=== PATIENT | female | born 1960 | race Caucasian/White ===

== ENCOUNTER → 2016-10-27 | Outpatient (CLI) | payer OTHER, MEDICARE ==
[2016-10-27 09:40] VITALS: BP 175/92; PULSE 52; RESP 16; TEMP 97.6; BMI 32.6
--- NOTE | 2016-11-03 09:58 | P.GSHP ---
History of Present Illness H&P Date: 10/27/16 Chief Complaint: Post RYGB 03/22 55-year-old female presents for post op eval S/P lap RYGB on 03/25/15 Her goal weight is 150 pounds. Status post lap cholecystectomy Her comorbid conditions include GERD-resolved, obstructive sleep apnea on CPAP, diabetes mellitus-resolved, arthritis,hypertension- resolved, Parkinson's disease, hypothyroidism, depression and chronic venous dermatitis bilateral lower extremities - resolved after laser therapy. She is taking daily multivitamins Recent hispital admission with altered mental status and elevated ammonia levels. She was discharged and repeat levels were normal? Etiology Preoperative visit #1 03/2014, weight 305.4 pounds, BMI 49.2 Preoperative visit #2 02/05/2015, weight 291.4 pounds, BMI 47 Preoperative visit #3 03/12/2015, weight 290.4 pounds, BMI 46.9 Laparoscopic Norma-en-Y gastric bypass on 03/15/2015 Postoperative visit #1 04/02/15, weight 272.8 pounds, BMI 44.6 Postoperative visit#2 04/23/15, weight 255.6 pounds , BMI 41.2 Postoperative visit #3 07/02/15, weight 102.7 KG, BMI 36.5 Postoperative visit #4 09/09/15, weight 93.80KG, BMI 33.4 Postoperative visit #5 10/22/15, weight 91.8 KG ,BMI 32.7 Postoperative visit #6 12/10/2015, weight 99.13 KG, BMI 31.7 Postoperative visit #7 04/07/2016, weight 85.9 KG, BMI 30.5 Postoperative visit #8 10/27/2016, weight 91KG, BMI 32.6 - Review of Systems Comment: Constitutional: Denies fever, malaise, anorexia, loss of appetite. HEENT: No difficulty in vision or hearing. Intermittent dysphagia Respiratory: Denies cough, shortness of breath, difficulty with breathing. Known sleep apnea and uses CPAP Cardiovascular: Denies any palpitation, shortness of breath, chest pain or irregular heart rate Genitourinary: No burning micturition or hematuria or incontinence Gastrointestinal: Mild constipation. No postprandial right upper quadrant pain . No nausea or vomiting. Musculoskeletal: Long-standing history of tremors. Known Parkinson's disease. Bilateral knee pain. Neurologic: No history of seizures, headache. No weakness or sensory deficits Psychiatric: Known history of depression. No suicidal ideation. Integumentary: Venous stasis ulcers in bilateral lower extremities status post laser ablation Past Medical History Past Medical History: Diabetes Mellitus, GERD/Reflux, Hearing Disorder / Deafness, Hypertension, Neurologic Disorder, Osteoarthritis (OA), Respiratory Disorder, Sleep Apnea/CPAP/BIPAP, Thyroid Disorder, Vascular Disorder Additional Past Medical History / Comment(s): 03/25/15 Pt admitted to floor s/p laparoscopic norma en y gastric bypass. Other HX: Arthritis, Back Pain; PARKINSON'S W/ ESSENTIAL Tremors; Venous INSUF, W/ HX Stasis Ulcers, RECENT RLL ULCERHEALED; HX CELLULITIS BLL. HX FX of LT Wrist, and Hip. USES CPAP; HAS "RESTRICTIVE LUNG DISEASE." History of Any Multi-Drug Resistant Organisms: None Reported Past Surgical History: Cholecystectomy Additional Past Surgical History / Comment(s): 03/25/15 Laparoscopic norma en y gastric bypass. Other SX: C. CATH 2011, NL. RT KNEE SCOPE. Colonoscopy and EGD Past Anesthesia/Blood Transfusion Reactions: No Reported Reaction Past Psychological History: Depression Additional Psychological History / Comment(s): Pt states she lives with her spouse. She states she is normally independent. She uses a cane prn. She drives. She has no home care. Smoking Status: Never smoker Past Alcohol Use History: None Reported Past Drug Use History: None Reported - Past Family History Mother Family Medical History: No Reported History Medications and Allergies Home Medications Medication Instructions Recorded Confirmed Type Levothyroxine Sodium [Synthroid] 50 mcg PO DAILY 12/24/13 04/07/16 History Cholecalciferol [Vitamin D3] 2,000 unit PO BID 03/23/14 04/07/16 History Primidone [Mysoline] 200 mg PO BID 03/23/14 04/07/16 History Multivitamins, Thera [Multivitamin 1 tab PO DAILY 03/17/15 04/07/16 History (formulary)] Calcium Citrate 500 mg PO DAILY 09/10/15 04/07/16 History Ergocalciferol [Vitamin D2] 50,000 unit PO Q7D 09/10/15 04/07/16 History Vitamin A 8,000 unit PO DAILY 09/10/15 04/07/16 History rOPINIRole HCL [Requip] 0.5 mg PO TID 09/10/15 04/07/16 History Allergies Allergy/AdvReac Type Severity Reaction Status Date / Time metformin Allergy Rash/Hives Verified 04/07/16 09:40 oxybutynin Allergy Wheezing Verified 04/07/16 09:40 Surgical - Exam Vital Signs Temp Pulse Resp BP 97.6 F 52 L 16 175/92 10/27/16 09:37 10/27/16 09:37 10/27/16 09:37 10/27/16 09:37 Gen.: She is alert and oriented to time place and person. She is not in acute distress and cooperative with exam HEENT: No pallor, no icterus, no thyroid enlargement Chest: Bilateral equal breath sounds present. No wheezes or murmurs Cardiovascular: S1, S2 present. No murmurs Abdomen: Soft, nontender, nondistended. Surgical incisions are clean, dry and intact. No surgical site infection Neurologic: Cranial nerves II-12 intact .Gait is normal . Strength upper and lower extremity 5/5. Tremors present. Psychiatry: No anxiety or psychosis. Denies suicidal ideation. Integumentary: Bilateral lower extremities chronic venous dermatitis. No active ulcer . Large overhanging lower abdominal pannus Musculoskeletal: Persistent tremor in bilateral upper extremities . Assessment and Plan (1) Hypothyroidism Status: Acute (2) Parkinson disease Status: Acute (3) Tremor Status: Chronic Plan: 1. Status post laparoscopic Norma-en-Y gastric bypass. Patient doing well. Lost more than 100 pounds. 2. Continue taking daily multivitamin 3. Follow-up with Dr. Bravo, primary care physician. Repeat annual lab work including mineral and vitamin levels. 4. Increase physical activity as tolerated 5. Follow up with GI regarding elevated LFTs and ammonia levels 6. Follow-up in 03/2017 at the bariatric center 7. Attending bariatric support group meeting
== END | disposition home or self-care (01) ==
LOC: BARWHC3 09:12
PROVIDERS: ATTEND Surgery
DX: Z48.815 Encounter for surgical aftercare following surgery on the digestive system (principal); E03.9 Hypothyroidism, unspecified; G20 Parkinson's disease; G25.2 Other specified forms of tremor; Z68.32 Body mass index [BMI] 32.0-32.9, adult; Z98.84 Bariatric surgery status; Z88.8 Allergy status to other drugs, medicaments and biological substances; Z79.899 Other long term (current) drug therapy
CPT/HCPCS: 99211

== ENCOUNTER → 2016-11-29 | Outpatient (CLI) | payer OTHER, MEDICARE ==
--- NOTE | 2016-11-29 14:33 | MM ---
Reason for exam: screening (asymptomatic). Last mammogram was performed 1 year ago. History: Patient is postmenopausal. Physical Findings: A clinical breast exam by your physician is recommended on an annual basis and results should be correlated with mammographic findings. MG Screening Mammo w CAD Bilateral CC and MLO view(s) were taken. Prior study comparison: December 09, 2015, bilateral MG screening mammo w CAD. November 21, 2014, bilateral MG screening mammo w CAD. June 21, 2014, bilateral MG screening mammo w CAD. There are scattered fibroglandular densities. There is no discrete abnormality. ASSESSMENT: Negative, BI-RAD 1 RECOMMENDATION: Routine screening mammogram of both breasts in 1 year.
== END | disposition home or self-care (01) ==
LOC: RADMAMWWP 11:11
PROVIDERS: ATTEND Family Medicine
DX: Z12.31 Encounter for screening mammogram for malignant neoplasm of breast (principal)

== ENCOUNTER → 2017-01-17 | Outpatient (CLI) | payer OTHER, MEDICARE ==
[2017-01-17 12:10] LABS: CH 31.3; CHCM 33.3; HCT 39.7 % (34.0-46.0); HDW 2.46; HGB 13.2 gm/dL (11.4-16.0); MCH 31.4 pg (25.0-35.0); MCHC 33.2 g/dL (31.0-37.0); MCV 94.5 fL (80.0-100.0); Mean Platelet Volume 6.7; RDW 12.9 % (11.5-15.5); WBC 6.2 k/uL (3.8-10.6)
[2017-01-17 12:30] LABS: ALT 21 U/L (9-52); AST 22 U/L (14-36); Alkaline Phosphatase 87 U/L (38-126); Anion Gap 6 mmol/L; Blood Urea Nitrogen 9 mg/dL (7-17); Calcium 9.3 mg/dL (8.4-10.2); Carbon Dioxide 28 mmol/L (22-30); Chloride 106 mmol/L (98-107); Cholesterol 158 mg/dL (<200); Glucose 78 mg/dL (74-99); HDL Cholesterol 54 mg/dL (40-60); Iron 117 ug/dL (37-170); Magnesium 1.8 mg/dL (1.6-2.3); Non-African American GFR(MDRD) >60 (>60 ml/min/1.73 sqM); Phosphorous 3.7 mg/dL (2.5-4.5); Potassium 4.4 mmol/L (3.5-5.1); Sodium 140 mmol/L (137-145); Total Bilirubin 0.4 mg/dL (0.2-1.3); Total Protein 6.3 g/dL (6.3-8.2); Triglycerides 101 mg/dL (<150)
[2017-01-17 12:40] LABS: % Iron Saturation 39.3 % (20-50); Prealbumin 18 mg/dL (18-36); Total Iron Binding Capacity 298 ug/dL (265-497)
[2017-01-17 13:31] LABS: Hemoglobin A1C 5.4 % (4.2-6.1)
[2017-01-17 13:35] LABS: Vitamin B12 270 pg/mL (239-931)
[2017-01-21 16:12] LABS: Selenium 133 mcg/L (63-160)
== END | disposition home or self-care (01) ==
LOC: LABWHC1 11:36
PROVIDERS: ATTEND Surgery
DX: E66.01 Morbid (severe) obesity due to excess calories (principal); E89.1 Postprocedural hypoinsulinemia; E03.9 Hypothyroidism, unspecified; R63.3 Feeding difficulties
CPT/HCPCS: 36415; 80053; 80061; 82306; 82525; 82607; 82728; 82746; 83036; 83540; 83550; 83735; 83970; 84100; 84134; 84255; 84425; 84443; 84590; 84630; 85027

== ENCOUNTER 2017-03-18 18:51 | Inpatient (IN) | payer OTHER, MEDICARE ==
[2017-03-18 21:44] VITALS: BMI 32.6
[2017-03-18 22:26] LABS: Glucose,Whole Blood 89 mg/dL (75-99)
[2017-03-18] MEDS ORDERED: MORPHINE SULFATE 10 MG/ML SYRINGE IVP PRN (23:48)
[2017-03-18] MEDS ORDERED: ACETAMINOPHEN TAB 325 MG TAB PO PRN (23:51)
[2017-03-18] MEDS ORDERED: ONDANSETRON 4 MG/2 ML VIAL IVP PRN (23:52)
[2017-03-19] MEDS: SODIUM CHLORIDE 0.9% 1,000 ML IV SCH ×3 (00:30→16:05)
[2017-03-19] MEDS: KETOROLAC 30 MG/ML 1 ML VIAL IVP SCH ×3 (01:02→13:12)
[2017-03-19] MEDS ORDERED: LEVOTHYROXINE 50 MCG TAB PO SCH (06:30)
[2017-03-19 07:16] LABS: Glucose,Whole Blood 99 mg/dL (75-99)
[2017-03-19 07:24] LABS: Basophils % (A) 1 %; CH 30.6; CHCM 33.1; Eosinophils # (A) 0.1 k/uL (0-0.7); Eosinophils % (A) 2 %; HCT 36.1 % (34.0-46.0); HDW 2.45; HGB 11.9 gm/dL (11.4-16.0); Luc # (Auto) 0.14; Luc % (Auto) 2; Lymphocytes # (A) 2.4 k/uL (1.0-4.8); Lymphocytes % (A) 41 %; MCH 30.6 pg (25.0-35.0); MCHC 32.9 g/dL (31.0-37.0); MCV 93.1 fL (80.0-100.0); Mean Platelet Volume 6.8; Monocytes # (A) 0.3 k/uL (0-1.0); Monocytes % (A) 5 %; Neutrophils # (A) 2.9 k/uL (1.3-7.7); Neutrophils % (A) 49 %; RBC 3.88 m/uL (3.80-5.40); RDW 12.7 % (11.5-15.5); WBC 5.9 k/uL (3.8-10.6)
[2017-03-19 07:41] LABS: Anion Gap 4 mmol/L; Blood Urea Nitrogen 10 mg/dL (7-17); Calcium 8.4 mg/dL (8.4-10.2); Carbon Dioxide 25 mmol/L (22-30); Chloride 110 mmol/L (98-107); Glucose 88 mg/dL (74-99); Non-African American GFR(MDRD) >60 (>60 ml/min/1.73 sqM); Potassium 4.4 mmol/L (3.5-5.1); Sodium 139 mmol/L (137-145)
[2017-03-19 07:59] VITALS: RESP 16
[2017-03-19] MEDS: CARBIDOPA-LEVODOPA 25-100 MG 1 EACH TAB PO SCH ×2 (08:03→16:06)
[2017-03-19] MEDS ORDERED: MORPHINE SULFATE 2 MG/ML SYRINGE IVP PRN (08:31)
[2017-03-19] MEDS ORDERED: HEPARIN SODIUM,PORCINE 5,000 UNIT/ML 1 ML VIAL SQ SCH (09:00)
[2017-03-19] MEDS ORDERED: PRIMIDONE 50 MG TAB PO SCH (09:00)
[2017-03-19] MEDS ORDERED: PANTOPRAZOLE 40 MG/10 ML VIAL IVP SCH (09:00)
--- NOTE | 2017-03-19 11:11 | P.HPIM ---
History of Present Illness Patient is a very pleasant 56-year-old female came in with complaints of left the inguinal pain squeezing and sharp in nature radiating to the groin area about 7-8 x 10 in severity on onset and now has gone down to 5 x 10 in severity with pain medications. Patient is found to have a 6 minute Metastron. Patient denied dysuria [facility] showed predominantly hematuria are not consistent with infection. Patient denied any fever chills. Patient was bradycardic which is a sinus bradycardia and is symptomatic with that sinus bradycardia although patient has on and off dizziness when she woke up. Patient's TSH is within normal limits no further intervention for bradycardia at this time. Urology was consulted patient was on IV fluids and antibiotics antibiotics will be discontinued at this time. Review of Systems REVIEW OF SYSTEMS: CONSTITUTIONAL: No fever, no malaise, no fatigue. HEENT: No recent visual problems or hearing problems. Denied any sore throat. CARDIOVASCULAR: No chest pain, orthopnea, PND, no palpitations, no syncope. PULMONARY: No shortness of breath, no cough, no hemoptysis. GASTROINTESTINAL: No diarrhea, no nausea, no vomiting, no abdominal pain. Normoactive bowel sounds. NEUROLOGICAL: No headaches, no weakness, no numbness. HEMATOLOGICAL: Denies any bleeding or petechiae. GENITOURINARY: As mentioned in HPI MUSCULOSKELETAL/RHEUMATOLOGICAL: Denies any joint pain, swelling, or any muscle pain. ENDOCRINE: Denies any polyuria or polydipsia. The rest of the 14-point review of systems is negative. Past Medical History Past Medical History: Diabetes Mellitus, GERD/Reflux, Hypertension, Neurologic Disorder, Osteoarthritis (OA), Respiratory Disorder, Sleep Apnea/CPAP/BIPAP, Thyroid Disorder, Vascular Disorder Additional Past Medical History / Comment(s): 03/25/15 Pt admitted to floor s/p laparoscopic naldo en y gastric bypass. Other HX: Arthritis, Back Pain; PARKINSON'S W/ ESSENTIAL Tremors; Venous INSUF, W/ HX Stasis Ulcers, RECENT RLL ULCERHEALED; HX CELLULITIS BLL. HX FX of LT Wrist, and Hip. USES CPAP; HAS "RESTRICTIVE LUNG DISEASE." History of Any Multi-Drug Resistant Organisms: None Reported Past Surgical History: Cholecystectomy Additional Past Surgical History / Comment(s): 03/25/15 Laparoscopic naldo en y gastric bypass. Other SX: C. CATH 2011, NL. RT KNEE SCOPE. Colonoscopy and EGD Past Anesthesia/Blood Transfusion Reactions: No Reported Reaction Past Psychological History: Depression Additional Psychological History / Comment(s): Pt states she lives with her spouse. She states she is normally independent. She uses a cane prn. She drives. She has no home care. Smoking Status: Never smoker Past Alcohol Use History: None Reported Past Drug Use History: None Reported - Past Family History Mother Family Medical History: No Reported History Medications and Allergies Home Medications Medication Instructions Recorded Confirmed Type Levothyroxine Sodium [Synthroid] 50 mcg PO DAILY 12/24/13 03/18/17 History Primidone [Mysoline] 100 mg PO BID 03/23/14 03/18/17 History Ergocalciferol [Vitamin D2] 50,000 unit PO MO 09/10/15 03/18/17 History Carbidopa-Levodopa 25-100 mg 1 tab PO TID 03/18/17 03/18/17 History [Sinemet 25-100] rOPINIRole HCL [Requip] 1 mg PO TID 03/18/17 03/18/17 History Allergies Allergy/AdvReac Type Severity Reaction Status Date / Time metformin Allergy Rash/Hives Verified 03/18/17 22:07 oxybutynin Allergy Wheezing Verified 03/18/17 22:07 Physical Exam Vitals: Vital Signs Temp Pulse Resp BP Pulse Ox 03/19/17 07:00 97.6 F 46 L 16 116/54 96 03/19/17 00:00 18 03/18/17 22:59 97.3 F L 39 L 18 146/77 100 Intake and Output 03/18/17 03/19/17 03/19/17 22:59 06:59 14:59 Output Total 225 Balance -225 Output: Urine 225 Other: # Voids 1 2 Weight 91 kg PHYSICAL EXAMINATION: GENERAL: The patient is alert and oriented x3, not in any acute distress. Well developed, well nourished. HEENT: Pupils are round and equally reacting to light. EOMI. No scleral icterus. No conjunctival pallor. Normocephalic, atraumatic. No pharyngeal erythema. No thyromegaly. CARDIOVASCULAR: S1 and S2 present. No murmurs, rubs, or gallops. PULMONARY: Chest is clear to auscultation, no wheezing or crackles. ABDOMEN: Soft, nontender, nondistended, normoactive bowel sounds. No palpable organomegaly. MUSCULOSKELETAL: No joint swelling or deformity. EXTREMITIES: No cyanosis, clubbing, or pedal edema. NEUROLOGICAL: Gross neurological examination did not reveal any focal deficits. SKIN: No rashes. Results CBC & Chem 7: 03/19/17 07:04 03/19/17 07:04 Labs: Abnormal Lab Results - Last 24 Hours (Table) 03/19/17 Range/Units 07:04 Chloride 110 H (98-107) mmol/L Thrombosis Risk Factor Assmnt - Choose All That Apply Each Factor Represents 1 point: Age 41-60 years, Obesity (BMI >25) Thrombosis Risk Factor Assessment Total Risk Factor Score: 2 Thrombosis Risk Factor Assessment Level: Low Risk Assessment and Plan Plan: #1 left lower abdominal pain: Secondary to nephrolithiasis without any UTI. Patient will be continued on IV fluids and urology was consulted. Patient had a 6 mm stone. #2 hypogonadism continue with levothyroxine History of Parkinson's: Uncontrolled symptoms and patient will be resumed on her home medications. #4 hypothyroidism TSH within normal limits will continue with levothyroxine. #5 sinus bradycardia a symptomatically at this time no further intervention at this time.
--- NOTE | 2017-03-19 12:28 | P.GSCN ---
History of Present Illness Consult date: 03/19/17 Reason for Consult: Kidney stone History of present illness: The patient is a 56-year-old female transferred from [facility] for evaluation and treatment of a left ureteral calculus. Her problem began yesterday morning when she developed left lower quadrant pain at 0615. The pain worsened in severity and she presented to the [facility] emergency room around 8 AM where she was evaluated. She was noted to have microscopic hematuria initially and then later in the morning experienced gross hematuria. KUB was nondiagnostic. A renal ultrasound was obtained but I do not have the report for review. A computed tomography scan of the abdomen and pelvis was obtained later in the morning and this identified a 4 x 6 mm distal left ureteral calculus with mild hydronephrosis. The patient says that her pain was rated as a 3 out of 10 later in the morning and essentially was gone by the afternoon. Sometime in the afternoon it was elected to transfer the patient to this hospital for which she describes as a procedure to remove the stone. I was not contacted by the [facility] emergency room at that time. Patient eventually transferred in the evening and says she has been comfortable throughout the night and this morning. She does have periodic urgency to void but says that the discomfort is mild. She is no longer experiencing gross hematuria. She denies any dysuria and has had no fever or chills. She has had occasional urinary tract infections in the past but none have recurred recently. She has no personal or family history of urolithiasis. Review of Systems - Constitutional Denies anorexia, Denies chills, Denies fever - Cardiovascular Denies chest pain, Denies palpitations, Denies shortness of breath - Respiratory Denies cough, Denies wheezing - Gastrointestinal Denies abdominal pain, Denies constipation, Denies nausea, Denies vomiting - Genitourinary Genitourinary: Reports as per HPI Past Medical History Past Medical History: Diabetes Mellitus (resolved following bariatric surgery), GERD/Reflux, Hypertension (Resolved following bariatric surgery), Neurologic Disorder, Osteoarthritis (OA), Respiratory Disorder, Sleep Apnea/CPAP/BIPAP, Thyroid Disorder, Vascular Disorder Additional Past Medical History / Comment(s): 03/25/15 Pt admitted to floor s/p laparoscopic naldo en y gastric bypass. Other HX: Arthritis, Back Pain; PARKINSON'S W/ ESSENTIAL Tremors; Venous INSUF, W/ HX Stasis Ulcers, RECENT RLL ULCERHEALED; HX CELLULITIS BLL. HX FX of LT Wrist, and Hip. USES CPAP; HAS "RESTRICTIVE LUNG DISEASE." History of Any Multi-Drug Resistant Organisms: None Reported Past Surgical History: Cholecystectomy Additional Past Surgical History / Comment(s): 03/25/15 Laparoscopic naldo en y gastric bypass. Other SX: C. CATH 2011, NL. RT KNEE SCOPE. Colonoscopy and EGD Past Anesthesia/Blood Transfusion Reactions: No Reported Reaction Past Psychological History: Depression Additional Psychological History / Comment(s): Pt states she lives with her spouse. She states she is normally independent. She uses a cane prn. She drives. She has no home care. Smoking Status: Never smoker Past Alcohol Use History: None Reported Past Drug Use History: None Reported - Past Family History Mother Family Medical History: No Reported History Medications and Allergies Home Medications Medication Instructions Recorded Confirmed Type Levothyroxine Sodium [Synthroid] 50 mcg PO DAILY 12/24/13 03/18/17 History Primidone [Mysoline] 100 mg PO BID 03/23/14 03/18/17 History Ergocalciferol [Vitamin D2] 50,000 unit PO MO 09/10/15 03/18/17 History Carbidopa-Levodopa 25-100 mg 1 tab PO TID 03/18/17 03/18/17 History [Sinemet 25-100] rOPINIRole HCL [Requip] 1 mg PO TID 03/18/17 03/18/17 History Allergies Allergy/AdvReac Type Severity Reaction Status Date / Time metformin Allergy Rash/Hives Verified 03/18/17 22:07 oxybutynin Allergy Wheezing Verified 03/18/17 22:07 Surgical - Exam Vital Signs Temp Pulse Resp BP Pulse Ox 97.3 F L 39 L 18 146/77 100 03/18/17 22:59 03/18/17 22:59 03/18/17 22:59 03/18/17 22:59 03/18/17 22:59 - General well developed, no distress, no pain - Respiratory normal respiratory effort - Abdomen Abdomen: soft, non tender, no organomegaly - Psychiatric oriented to time, speech is normal, memory intact Results - Labs 03/19/17 07:04 03/19/17 07:04 Abnormal Lab Results - Last 24 Hours (Table) 03/19/17 Range/Units 07:04 Chloride 110 H (98-107) mmol/L Diabetes panel 03/19/17 Range/Units 07:04 Sodium 139 (137-145) mmol/L Potassium 4.4 (3.5-5.1) mmol/L Chloride 110 H (98-107) mmol/L Carbon Dioxide 25 (22-30) mmol/L BUN 10 (7-17) mg/dL Creatinine 0.55 (0.52-1.04) mg/dL Glucose 88 (74-99) mg/dL Calcium 8.4 (8.4-10.2) mg/dL Thyroid panel 03/19/17 Range/Units 07:04 TSH 1.200 (0.465-4.680) mIU/L Calcium panel 03/19/17 Range/Units 07:04 Calcium 8.4 (8.4-10.2) mg/dL Pituitary panel 03/19/17 Range/Units 07:04 Sodium 139 (137-145) mmol/L Potassium 4.4 (3.5-5.1) mmol/L Chloride 110 H (98-107) mmol/L Carbon Dioxide 25 (22-30) mmol/L BUN 10 (7-17) mg/dL Creatinine 0.55 (0.52-1.04) mg/dL Glucose 88 (74-99) mg/dL Calcium 8.4 (8.4-10.2) mg/dL TSH 1.200 (0.465-4.680) mIU/L Adrenal panel 03/19/17 Range/Units 07:04 Sodium 139 (137-145) mmol/L Potassium 4.4 (3.5-5.1) mmol/L Chloride 110 H (98-107) mmol/L Carbon Dioxide 25 (22-30) mmol/L BUN 10 (7-17) mg/dL Creatinine 0.55 (0.52-1.04) mg/dL Glucose 88 (74-99) mg/dL Calcium 8.4 (8.4-10.2) mg/dL Assessment and Plan (1) Left ureteral calculus Narrative/Plan: I personally reviewed the patient's computed tomography scan. She has a 4 x 6 mm calculus in the distal left ureter which appears to be within 2 or 3 cm of the ureteral vesicle junction. There was mild left hydronephrosis but no other evidence of urolithiasis. The patient has been comfortable since yesterday morning and it is likely that her stone is migrating closer to the bladder as she experiences more urgency to void. She has no evidence of urinary tract infection and should not be treated with an antibiotic. I explained to the patient that there is no indication for an operative procedure at this time and that she has probably at least an 80% likelihood of being able to spontaneously pass her calculus. She will be started on tamsulosin and I encouraged her to continue to strain her urine until the stone has passed so it can be sent for analysis. I gave her our office phone number so she can contact me if she develops pain which is not controllable with oral analgesics. She does have some acetaminophen/hydrocodone liquid at home which was left over from her bariatric surgery which she could use as needed. Status: Acute
[2017-03-19 15:47] VITALS: BP 130/60; PULSE 48; TEMP 98.1
--- NOTE | 2017-03-19 16:58 | P.DS ---
Providers Date of admission: 03/18/17 21:11 Attending physician: Lana Mcdaniel Consults: 03/19/17 00:02 Consult Physician Routine Consulting Provider: Refugio Trammell Consult Reason/Comments: stone in left ureter Do you want consulting provider notified?: Yes Primary care physician: Stated None Hospital Course: Patient is feeling much better was evaluated by urology and patient is clear for discharge from their perspective and patient wanted to be discharged. Patient is being discharged today in stable medical condition to home for further details please refer to my HPI Plan - Discharge Summary New Discharge Prescriptions: New Tamsulosin [Flomax] 0.4 mg PO DAILY #14 cap No Action Levothyroxine Sodium [Synthroid] 50 mcg PO DAILY Primidone [Mysoline] 100 mg PO BID Ergocalciferol [Vitamin D2] 50,000 unit PO MO Carbidopa-Levodopa 25-100 mg [Sinemet 25-100] 1 tab PO TID rOPINIRole HCL [Requip] 1 mg PO TID Discharge Medication List Levothyroxine Sodium [Synthroid] 50 mcg PO DAILY 12/24/13 [History] Primidone [Mysoline] 100 mg PO BID 03/23/14 [History] Ergocalciferol [Vitamin D2] 50,000 unit PO MO 09/10/15 [History] Carbidopa-Levodopa 25-100 mg [Sinemet 25-100] 1 tab PO TID 03/18/17 [History] rOPINIRole HCL [Requip] 1 mg PO TID 03/18/17 [History] Tamsulosin [Flomax] 0.4 mg PO DAILY #14 cap 03/19/17 [Rx] Patient Instructions/Handouts: Tamsulosin (By mouth), Ureteral Stones (DC) Discharge Disposition: HOME SELF-CARE
== END 2017-03-19 17:30 | disposition home or self-care (01) | DRG 694 ==
LOC: 5MS5E 21:11
PROVIDERS: ADMIT Internal Medicine; ATTEND Internal Medicine
DX: N13.2 Hydronephrosis with renal and ureteral calculous obstruction (principal); G20 Parkinson's disease; I10 Essential (primary) hypertension; R31.0 Gross hematuria; R00.1 Bradycardia, unspecified; R39.15 Urgency of urination; G47.30 Sleep apnea, unspecified; K21.9 Gastro-esophageal reflux disease without esophagitis; R31.29 Other microscopic hematuria; R42 Dizziness and giddiness; I87.2 Venous insufficiency (chronic) (peripheral); J98.4 Other disorders of lung; M19.90 Unspecified osteoarthritis, unspecified site; E03.9 Hypothyroidism, unspecified; G25.0 Essential tremor; E66.9 Obesity, unspecified; E11.9 Type 2 diabetes mellitus without complications; Z98.84 Bariatric surgery status; Z87.440 Personal history of urinary (tract) infections; Z88.8 Allergy status to other drugs, medicaments and biological substances; Z86.19 Personal history of other infectious and parasitic diseases; Z87.81 Personal history of (healed) traumatic fracture; Z86.59 Personal history of other mental and behavioral disorders; Z90.49 Acquired absence of other specified parts of digestive tract
CPT/HCPCS: 80048; 84439; 84443; 85025; 93005

== ENCOUNTER → 2017-04-18 | Outpatient (CLI) | payer OTHER, MEDICARE ==
--- NOTE | 2017-04-18 09:38 | P.GSCN ---
History of Present Illness Consult date: 04/18/17 Past Medical History Past Medical History: Diabetes Mellitus (resolved following bariatric surgery), GERD/Reflux, Hypertension (Resolved following bariatric surgery), Neurologic Disorder, Osteoarthritis (OA), Respiratory Disorder, Sleep Apnea/CPAP/BIPAP, Thyroid Disorder, Vascular Disorder Additional Past Medical History / Comment(s): 03/25/15 Pt admitted to floor s/p laparoscopic naldo en y gastric bypass. Other HX: Arthritis, Back Pain; PARKINSON'S W/ ESSENTIAL Tremors; Venous INSUF, W/ HX Stasis Ulcers, RECENT RLL ULCERHEALED; HX CELLULITIS BLL. HX FX of LT Wrist, and Hip. USES CPAP; HAS "RESTRICTIVE LUNG DISEASE." History of Any Multi-Drug Resistant Organisms: None Reported Past Surgical History: Cholecystectomy Additional Past Surgical History / Comment(s): 03/25/15 Laparoscopic naldo en y gastric bypass. Other SX: C. CATH 2011, NL. RT KNEE SCOPE. Colonoscopy and EGD Past Anesthesia/Blood Transfusion Reactions: No Reported Reaction Past Psychological History: Depression Additional Psychological History / Comment(s): Pt states she lives with her spouse. She states she is normally independent. She uses a cane prn. She drives. She has no home care. Smoking Status: Never smoker Past Alcohol Use History: None Reported Past Drug Use History: None Reported - Past Family History Mother Family Medical History: No Reported History Medications and Allergies Home Medications Medication Instructions Recorded Confirmed Type Levothyroxine Sodium [Synthroid] 50 mcg PO DAILY 12/24/13 03/18/17 History Primidone [Mysoline] 100 mg PO BID 03/23/14 03/18/17 History Ergocalciferol [Vitamin D2] 50,000 unit PO MO 09/10/15 03/18/17 History Carbidopa-Levodopa 25-100 mg 1 tab PO TID 03/18/17 03/18/17 History [Sinemet 25-100] rOPINIRole HCL [Requip] 1 mg PO TID 03/18/17 03/18/17 History Tamsulosin [Flomax] 0.4 mg PO DAILY #14 cap 03/19/17 Rx Allergies Allergy/AdvReac Type Severity Reaction Status Date / Time metformin Allergy Rash/Hives Verified 03/18/17 22:07 oxybutynin Allergy Wheezing Verified 03/18/17 22:07
[2017-04-18 10:10] VITALS: BP 140/80; PULSE 50; RESP 16; TEMP 98.1; BMI 31.6
== END | disposition home or self-care (01) ==
LOC: BARWHC3 09:09
PROVIDERS: ATTEND Surgery
DX: E55.9 Vitamin D deficiency, unspecified (principal); K21.9 Gastro-esophageal reflux disease without esophagitis; M19.90 Unspecified osteoarthritis, unspecified site; Z79.899 Other long term (current) drug therapy; Z88.8 Allergy status to other drugs, medicaments and biological substances
CPT/HCPCS: 97803; 99211

== ENCOUNTER → 2017-04-25 | Outpatient (CLI) | payer OTHER, MEDICARE ==
--- NOTE | 2017-04-25 15:24 | XR ---
Right hip HISTORY: Pain 2 views of the right hip Bone mineralization, joint spaces and alignment are maintained. IMPRESSION: No fracture or dislocation is evident. No significant arthropathy.
== END | disposition home or self-care (01) ==
LOC: RADXRMAIN 12:19
PROVIDERS: ATTEND Family Medicine
DX: M25.551 Pain in right hip (principal)
CPT/HCPCS: 73502

== ENCOUNTER → 2018-01-10 | Outpatient (CLI) | payer OTHER, MEDICARE ==
--- NOTE | 2018-01-11 14:11 | MM ---
Reason for exam: screening (asymptomatic). Last mammogram was performed 1 year and 1 month ago. History: Patient is postmenopausal. Physical Findings: A clinical breast exam by your physician is recommended on an annual basis and results should be correlated with mammographic findings. MG 3D Screening Mammo W/Cad Bilateral CC and MLO view(s) were taken. Prior study comparison: November 29, 2016, bilateral MG screening mammo w CAD. December 09, 2015, bilateral MG screening mammo w CAD. There are scattered fibroglandular densities. No suspicious abnormality. No significant changes when compared with prior studies. ASSESSMENT: Negative, BI-RAD 1 RECOMMENDATION: Routine screening mammogram of both breasts in 1 year.
== END | disposition home or self-care (01) ==
LOC: RADMAMWWP 11:04
PROVIDERS: ATTEND Family Medicine
DX: Z12.31 Encounter for screening mammogram for malignant neoplasm of breast (principal)
CPT/HCPCS: 77063; 77067

== ENCOUNTER → 2018-03-15 | Outpatient (CLI) | payer OTHER, MEDICARE ==
[2018-03-15 15:16] VITALS: BP 148/72; PULSE 48; RESP 16; TEMP 97.4; BMI 33.1
--- NOTE | 2018-03-15 15:42 | P.HPBAR ---
Bariatric H&P - History & Physicial H&P Date: 03/15/18 History & Physicial: Visit/CC: ry follow-up 2014 Patient initial contact: Initial weight: 138.21 kg Initial weight in pounds: 304.70 Height: 5 ft 6 in Initial BMI: 49.1 Last weight: Current weight: 93.157 kg Current weight in pounds: 205.38 Current BMI: 33.1 [place] body weight (based on NIH guidelines): 58.967 kg Excess body weight loss: 56.8% The patient is a 57 year-old F who presents for Bariatric Assessment. HPI: She is eager to lose more weight. Has occasional nausea or vomiting. Food is getting stuck on occasion. Her highest weight 310 pounds. Protein intake is low at 35 grams. She is eating more carbs. She is not taking MVI and has lost her gym randy. Using zinc oxide for skin for over 5 years. She has a gastric bypass. She wants to get down to 150 pounds. ABDOMEN: No hernias. Skin 10 pounds of skin with hanging of 6 cm. No hernias felt. LABS: Reviewed PLAN: 1. Recommend MVI of bariatric advantage or alive 2. Get labs today 3. Recommend EGD 4. Need of thyroid medication adjustment 5. She is looking into skin removal surgery. 6. Nystatin powder advised. 7. Get pictures today. Past Medical History Past Medical History: Diabetes Mellitus, GERD/Reflux, Hypertension, Neurologic Disorder, Osteoarthritis (OA), Respiratory Disorder, Sleep Apnea/CPAP/BIPAP, Thyroid Disorder, Vascular Disorder Additional Past Medical History / Comment(s): 03/25/15 Pt admitted to floor s/p laparoscopic naldo en y gastric bypass. Other HX: Arthritis, Back Pain; PARKINSON'S W/ ESSENTIAL Tremors; Venous INSUF, W/ HX Stasis Ulcers, RECENT RLL ULCERHEALED; HX CELLULITIS BLL. HX FX of LT Wrist, and Hip. USES CPAP; HAS "RESTRICTIVE LUNG DISEASE." History of Any Multi-Drug Resistant Organisms: None Reported Past Surgical History: Cholecystectomy Additional Past Surgical History / Comment(s): 03/25/15 Laparoscopic naldo en y gastric bypass. Other SX: C. CATH 2011, NL. RT KNEE SCOPE. Colonoscopy and EGD Past Anesthesia/Blood Transfusion Reactions: No Reported Reaction Past Psychological History: Depression Additional Psychological History / Comment(s): Pt states she lives with her spouse. She states she is normally independent. She uses a cane prn. She drives. She has no home care. Smoking Status: Never smoker Past Alcohol Use History: None Reported Past Drug Use History: None Reported - Past Family History Mother Family Medical History: No Reported History Surgical - Exam Vital Signs Temp Pulse Resp BP 97.4 F L 48 L 16 148/72 03/15/18 15:11 03/15/18 15:11 03/15/18 15:11 03/15/18 15:11 Bariatric Checklist Checklist: Plan: Checklist: EGD: 1. Hiatal hernia: 2. H. Pylori: HgbA1c: Vitamin D: Smoking: Never smoker Primary care physician referral: capri Psychiatry clearance: Cardiology clearance: Sleep study: Diet journal: VTE risk score: VTE risk level: Rehab needs at discharge:
[2018-03-15 16:33] LABS: HCT 41.4 % (34.0-46.0); HGB 13.8 gm/dL (11.4-16.0); MCH 30.4 pg (25.0-35.0); MCHC 33.4 g/dL (31.0-37.0); Mean Platelet Volume 6.6; Platelet Count 338 k/uL (150-450); RBC 4.55 m/uL (3.80-5.40); WBC 7.2 k/uL (3.8-10.6)
[2018-03-15 16:40] LABS: Prothrombin Time 10.2 sec (9.0-12.0)
[2018-03-15 16:41] LABS: Partial Thromboplastin Time 23.7 sec (22.0-30.0)
[2018-03-15 16:56] LABS: ALT 16 U/L (9-52); AST 20 U/L (14-36); Alkaline Phosphatase 82 U/L (38-126); Anion Gap 3 mmol/L; Blood Urea Nitrogen 11 mg/dL (7-17); Calcium 9.2 mg/dL (8.4-10.2); Carbon Dioxide 29 mmol/L (22-30); Chloride 105 mmol/L (98-107); Cholesterol 183 mg/dL (<200); Glucose 92 mg/dL (74-99); HDL Cholesterol 60 mg/dL (40-60); LDL Cholesterol,Calculated 101 mg/dL (0-99); Magnesium 1.8 mg/dL (1.6-2.3); Phosphorus 4.6 mg/dL (2.5-4.5); Potassium 4.3 mmol/L (3.5-5.1); Sodium 137 mmol/L (137-145); Total Bilirubin 0.3 mg/dL (0.2-1.3); Total Protein 6.5 g/dL (6.3-8.2); Triglycerides 108 mg/dL (<150)
[2018-03-16 00:57] LABS: Iron Saturation 30.19 (12.00-45.00)
[2018-03-16 01:05] LABS: Vitamin D 25 Hydroxy 57.1 ng/mL (30.0-100.0)
[2018-03-16 01:06] LABS: Folate, Serum 9.7 ng/mL
[2018-03-16 01:09] LABS: Parathyroid Hormone Intact 108.9 pg/mL (14.0-72.0)
[2018-03-16 01:14] LABS: Hemoglobin A1C 5.6 % (4.0-6.0)
[2018-03-16 15:07] LABS: Zinc, Serum 75 ug/dL (60-130)
[2018-03-17 05:18] LABS: Vitamin B1 44 ug/L (38-122)
[2018-03-17 05:30] LABS: Vitamin A 40 ug/dL (38-106)
== END | disposition home or self-care (01) ==
LOC: BARWHC3 14:20
PROVIDERS: ATTEND Surgery Plastic and Reconstructive Surgery
DX: Z09 Encounter for follow-up examination after completed treatment for conditions other than malignant neoplasm (principal); K21.9 Gastro-esophageal reflux disease without esophagitis; E07.9 Disorder of thyroid, unspecified; G47.30 Sleep apnea, unspecified; J98.4 Other disorders of lung; F32.9 Major depressive disorder, single episode, unspecified; Z99.89 Dependence on other enabling machines and devices; Z90.49 Acquired absence of other specified parts of digestive tract; Z98.84 Bariatric surgery status
CPT/HCPCS: 36415; 80053; 80061; 82306; 82525; 82607; 82728; 82746; 83036; 83540; 83550; 83735; 83970; 84100; 84134; 84255; 84425; 84443; 84590; 84630; 85027; 85610; 85730; 97803; 99211

== ENCOUNTER 2018-04-19 06:31 | Day surgery (SDC) | payer OTHER, MEDICARE ==
[2018-04-18 09:48] VITALS: BMI 32.3
--- NOTE | 2018-04-18 23:31 | P.GSHP ---
History of Present Illness H&P Date: 04/19/18 CHIEF COMPLAINT: GERD HISTORY OF PRESENT ILLNESS: The patient is a 57-year-old female who presents reports gastroesophageal reflux disease. Upper endoscopy was offered for further evaluation and management. PAST MEDICAL HISTORY: Please see list. PAST SURGICAL HISTORY: Please see list. MEDICATIONS: Please see list. ALLERGIES: Please see list. SOCIAL HISTORY: No illicit drug use FAMILY HISTORY: No reports of Crohn disease or ulcerative colitis. REVIEW OF ORGAN SYSTEMS: CONSTITUTIONAL: No reports of fevers or chills. GI: Denies any blood in stools or constipation. PHYSICAL EXAM: VITAL SIGNS: Stable GENERAL: Well-developed and pleasant in no acute distress. HEENT: No scleral icterus. Extraocular movements grossly intact. Moist buccal mucosa. NECK: Supple without lymphadenopathy. CHEST: Unlabored respirations. Equal bilateral excursions. CARDIOVASCULAR: Regular rate and rhythm. Distal 2+ pulses. ABDOMEN: Soft, nondistended. MUSCULOSKELETAL: No clubbing, cyanosis, or edema. ASSESSMENT: 1. Gastroesophageal reflux disease PLAN: 1. Recommend proceeding with an upper endoscopy Past Medical History Past Medical History: Diabetes Mellitus, Hypertension, Osteoarthritis (OA), Sleep Apnea/CPAP/BIPAP, Thyroid Disorder, Vascular Disorder Additional Past Medical History / Comment(s): PARKINSON'S W/ ESSENTIAL Tremors; no cpap used, hx kidney stones, diet control diabetic History of Any Multi-Drug Resistant Organisms: None Reported Past Surgical History: Bariatric Surgery, Cholecystectomy, Heart Catheterization , Orthopedic Surgery, Tonsillectomy Additional Past Surgical History / Comment(s): 03/25/15 Laparoscopic naldo en y gastric bypass. knee arthroscopy(not sure what knee), steph leg surgery varicose veins, Past Anesthesia/Blood Transfusion Reactions: Previous Problems w/ Anesthesia, Motion Sickness Additional Past Anesthesia/Blood Transfusion Reaction / Comment(s): "took extra time to come out" Past Psychological History: Depression Additional Psychological History / Comment(s): Pt states she lives with her spouse. She states she is normally independent. She uses a cane prn. She drives. She has no home care. Smoking Status: Never smoker Past Alcohol Use History: None Reported Past Drug Use History: None Reported - Past Family History Mother Family Medical History: No Reported History Medications and Allergies Home Medications Medication Instructions Recorded Confirmed Type Levothyroxine Sodium [Synthroid] 50 mcg PO DAILY 12/24/13 04/18/18 History Primidone [Mysoline] 100 mg PO BID 03/23/14 04/18/18 History Ergocalciferol [Vitamin D2] 50,000 unit PO MO 09/10/15 04/18/18 History Carbidopa-Levodopa 25-100 mg 1 tab PO QID 03/18/17 04/18/18 History [Sinemet 25-100] Alive 1 tab PO DAILY 04/18/18 04/18/18 History Naproxen 500 mg PO BID PRN 04/18/18 04/18/18 History Vitamin A Acetate [Vitamin A] 10,000 unit SL DAILY 04/18/18 04/18/18 History rOPINIRole HCL [Requip] 2 mg PO TID 04/18/18 04/18/18 History Allergies Allergy/AdvReac Type Severity Reaction Status Date / Time metformin Allergy Rash/Hives Verified 04/18/18 09:34 metronidazole Allergy Unknown Verified 04/18/18 09:35 oxybutynin Allergy Wheezing Verified 04/18/18 09:34
[~2018-04-19 06:31] MED LIST: LACTATED RINGERS 1,000 ML IV SCH
[2018-04-19] MEDS ORDERED: LACTATED RINGERS 1,000 ML IV ONE (06:51)
[2018-04-19 07:02] VITALS: RESP 16; TEMP 98.7
[2018-04-19] MEDS ORDERED: LIDOCAINE 1% INJ 10MG/ML (20 ML MDV) ONE (07:34)
[2018-04-19] MEDS ORDERED: PROPOFOL 10 MG/ML 20 ML VIAL IV ONE (07:34)
[2018-04-19 07:44] LABS: Glucose,Whole Blood 88 mg/dL (75-99)
--- NOTE | 2018-04-19 07:54 | P.PCN ---
Date of Procedure: 04/19/18 Description of Procedure: PREOPERATIVE DIAGNOSIS: Dysphagia. s/p Norma-en-y gastric bypass. POSTOPERATIVE DIAGNOSIS: Dysphagia. s/p Norma-en-y gastric bypass. Foreign body along gastric pouch Gastrojejunal stricture with chronic ulcer without perforation OPERATION: Esophagogastrojejunoscopy with balloon dilatation from 18 to 20 mm. Esophagogastrojejunoscopy with removal of foreign body SURGEON: Felisha Carrillo MD ANESTHESIA: MAC. INDICATIONS: The patient is a 57-year-old female who presents with a history of dysphagia, gastric bypass. Benefits and risks of the procedure were described. Informed consent was obtained. DESCRIPTION: The patient was brought into the endoscopy suite and laid in the left lateral decubitus position. After a timeout was confirmed, the procedure was initiated. An Olympus gastroscope was passed along the posterior oropharynx down to the distal esophagus where the squamocolumnar junction was unremarkable. The gastric pouch was entered. A gastrojejunal stricture of 18 mm was found as the adult gastroscope was 9.5 mm in size. A Boundary balloon dilator was placed through the scope. Final insufflation up to 20 mm was performed with a total of 2 minutes. The scope was advanced up to 60 cm from the incisors into the Norma limb. The mucosa of the gastrojejunal anastomosis was intact. No chronic gastrojejunal marginal ulcer was encountered. Attention celina were identified along the anastomosis. 2 were identified. One was removed. The other was deeper retained to the mucosa. [place] were removed using cold forceps. No full-thickness injury was encountered. The GI tract was desufflated. The patient tolerated the procedure well. FINDINGS: Squamocolumnar junction unremarkable at 40 cm. Stricture of approximately 18 mm encountered. No chronic gastrojejunal ulceration encountered. Successful balloon dilatation to 20 mm. Diaphragmatic hiatus at 40 cm. Gastric pouch 3 cm. Foreign body of retained staple along gastric anastomosis removed No LA grade A anastomosis RECOMMENDATIONS: Upper endoscopy as needed Plan - Discharge Summary New Discharge Prescriptions: No Action Levothyroxine Sodium [Synthroid] 50 mcg PO DAILY Primidone [Mysoline] 100 mg PO BID Ergocalciferol [Vitamin D2] 50,000 unit PO MO Carbidopa-Levodopa 25-100 mg [Sinemet 25-100] 1 tab PO QID Vitamin A Acetate [Vitamin A] 10,000 unit SL DAILY rOPINIRole HCL [Requip] 2 mg PO TID Alive 1 tab PO DAILY Naproxen 500 mg PO BID PRN PRN Reason: Pain Discharge Medication List Levothyroxine Sodium [Synthroid] 50 mcg PO DAILY 12/24/13 [History] Primidone [Mysoline] 100 mg PO BID 03/23/14 [History] Ergocalciferol [Vitamin D2] 50,000 unit PO MO 09/10/15 [History] Carbidopa-Levodopa 25-100 mg [Sinemet 25-100] 1 tab PO QID 03/18/17 [History] Alive 1 tab PO DAILY 04/18/18 [History] Naproxen 500 mg PO BID PRN 04/18/18 [History] Vitamin A Acetate [Vitamin A] 10,000 unit SL DAILY 04/18/18 [History] rOPINIRole HCL [Requip] 2 mg PO TID 04/18/18 [History]
[2018-04-19 08:09] VITALS: BP 120/71; PULSE 48
== END 2018-04-19 08:55 | disposition home or self-care (01) ==
LOC: ORWHC2ENDO 06:31
PROVIDERS: ATTEND Surgery Plastic and Reconstructive Surgery
DX: K31.89 Other diseases of stomach and duodenum (principal); K91.89 Other postprocedural complications and disorders of digestive system; T18.2XXA Foreign body in stomach, initial encounter; Z98.0 Intestinal bypass and anastomosis status; Z98.84 Bariatric surgery status; E11.9 Type 2 diabetes mellitus without complications; I10 Essential (primary) hypertension; M19.90 Unspecified osteoarthritis, unspecified site; G47.33 Obstructive sleep apnea (adult) (pediatric); E07.9 Disorder of thyroid, unspecified; G20 Parkinson's disease; F32.9 Major depressive disorder, single episode, unspecified; Z99.89 Dependence on other enabling machines and devices; Z90.49 Acquired absence of other specified parts of digestive tract; Z79.890 Hormone replacement therapy; Z79.899 Other long term (current) drug therapy; Z88.8 Allergy status to other drugs, medicaments and biological substances; Z87.442 Personal history of urinary calculi
CPT/HCPCS: 43247; 43249; J2001; J2704; C1726

== ENCOUNTER → 2018-05-17 | Outpatient (CLI) | payer OTHER, MEDICARE ==
--- NOTE | 2018-05-17 14:43 | P.PN ---
Subjective Progress Note Date: 05/17/18 HPI: NO belly pain since scope with staple removal ABDOMEN: Has mild panniculitis PLAN: 1. Nystatin powder for panniculitis. 2. No further reports of dysphagia. 3. Labs reviewed. 4. Recommend taking calcium supplement 5. Recommend more weight loss for over 100 pound weight loss.
[2018-05-17 16:08] VITALS: BP 133/98; PULSE 69; RESP 16; TEMP 98.8; BMI 40.0
== END | disposition home or self-care (01) ==
LOC: BARWHC3 13:30
PROVIDERS: ATTEND Surgery Plastic and Reconstructive Surgery
DX: M79.3 Panniculitis, unspecified (principal)
CPT/HCPCS: 99211

== ENCOUNTER 2018-07-10 17:16 | Emergency (ER) | payer OTHER, MEDICARE ==
[2018-07-10] MEDS ORDERED: EPINEPHrine 1 MG/ML 1 ML AMP IM STA ×4 (17:37→17:40)
[2018-07-10] MEDS ORDERED: FAMOTIDINE 20 MG/2 ML VIAL IV STA (17:48)
[2018-07-10] MEDS ORDERED: DEXAMETHASONE SOD PHOSPHATE 10 MG/ML 1 ML VIAL IV STA (17:48)
[2018-07-10] MEDS ORDERED: diphenhydrAMINE 50 MG/ML 1 ML VIAL IVP STA (17:49)
--- NOTE | 2018-07-10 17:54 | ED ---
General Adult HPI - General Chief complaint: Allergic Reaction Stated complaint: Reaction to contrast from CT Source: patient Mode of arrival: wheelchair Limitations: no limitations - History of Present Illness Initial comments: Dictation was produced using [employer] dictation software. please excuse any grammatical, word or spelling errors. Chief Complaint: 68-year-old female with throat symptoms status post administration of contrast. History of Present Illness: The 58 year old female who was sent in by the radiology department. She was getting a computed tomography scan with contrast when immediately after the scan she began having throat symptoms. States that her throat felt scratchy. Denies any history of contrast ALLERGY. Patient experienced severe flushing to the skin however that has since resolved. Denies any abdominal symptoms. The ROS documented in this emergency department record has been reviewed and confirmed by me. Those systems with pertinent positive or negative responses have been documented in the HPI. All other systems are other negative and/or noncontributory. - Related Data Home Medications Medication Instructions Recorded Confirmed Levothyroxine Sodium [Synthroid] 50 mcg PO DAILY 12/24/13 07/10/18 Primidone [Mysoline] 100 mg PO BID 03/23/14 07/10/18 Ergocalciferol [Vitamin D2] 50,000 unit PO MO 09/10/15 07/10/18 Carbidopa-Levodopa 25-100 mg 1 tab PO QID 03/18/17 07/10/18 [Sinemet 25-100] Alive 1 tab PO DAILY 04/18/18 07/10/18 Naproxen 500 mg PO BID PRN 04/18/18 07/10/18 Vitamin A Acetate [Vitamin A] 10,000 unit SL DAILY 04/18/18 07/10/18 rOPINIRole HCL [Requip] 2 mg PO TID 04/18/18 07/10/18 Previous Rx's Medication Instructions Recorded EPINEPHrine [Epipen 2-Alexandre] 0.3 mg IM ONCE PRN #1 pkg 07/10/18 Allergies Allergy/AdvReac Type Severity Reaction Status Date / Time Iodinated Contrast- Oral and Allergy Anaphylaxis Verified 07/10/18 18:45 IV Dye metformin Allergy Rash/Hives Verified 07/10/18 18:44 metronidazole Allergy Unknown Verified 07/10/18 18:44 oxybutynin Allergy Wheezing Verified 07/10/18 18:44 Review of Systems ROS Statement: Those systems with pertinent positive or pertinent negative responses have been documented in the HPI. ROS Other: All systems not noted in ROS Statement are negative. Past Medical History Past Medical History: Diabetes Mellitus, Hypertension, Osteoarthritis (OA), Sleep Apnea/CPAP/BIPAP, Thyroid Disorder, Vascular Disorder Additional Past Medical History / Comment(s): PARKINSON'S W/ ESSENTIAL Tremors; no cpap used, hx kidney stones, diet control diabetic History of Any Multi-Drug Resistant Organisms: None Reported Past Surgical History: Bariatric Surgery, Cholecystectomy, Heart Catheterization , Orthopedic Surgery, Tonsillectomy Additional Past Surgical History / Comment(s): 03/25/15 Laparoscopic naldo en y gastric bypass. knee arthroscopy(not sure what knee), steph leg surgery varicose veins, Past Anesthesia/Blood Transfusion Reactions: Previous Problems w/ Anesthesia, Motion Sickness Additional Past Anesthesia/Blood Transfusion Reaction / Comment(s): "took extra time to come out" Past Psychological History: Depression Smoking Status: Never smoker Past Alcohol Use History: None Reported Past Drug Use History: None Reported - Past Family History Mother Family Medical History: No Reported History General Exam - General Exam Comments Initial Comments: PHYSICAL EXAM: General Impression: Alert and oriented x3, not in acute distress, raspy voice HEENT: Normocephalic atraumatic, extra-ocular movements intact, pupils equal and reactive to light bilaterally, mucous membranes moist. Cardiovascular: Heart regular rate and rhythm, S1&S2 audible, no murmurs, rubs or gallops Chest: Lungs clear to auscultation bilaterally, no rhonchi, no wheeze, no rales Abdomen: Bowel sounds present, abdomen soft, non-tender, non-distended, no organomegaly Musculoskeletal: Pulses present and equal in all extremities, no peripheral edema Motor: Power 5/5 bilaterally, no focal deficits noted Neurological: CN II-XII grossly intact, no focal motor or sensory deficits noted Skin: Intact with no visualized rashes Psych: Normal affect and mood Limitations: no limitations Course Vital Signs 07/10/18 07/10/18 17:19 18:03 Temperature 98.1 F Pulse Rate 52 L 56 L Respiratory 18 18 Rate Blood Pressure 164/84 166/92 O2 Sat by Pulse 100 100 Oximetry Medical Decision Making - Medical Decision Making ED course: 58-year-old female presents with clinical presentation concerning for severe ALLERGIC reaction. Signs upon arrival are within acceptable limits. Patient given EpiPen, diphenhydramine, pepcid and corticosteroids. Patient was observed in emergency department for several hours with stable medical condition. She reports improvement of symptoms after reevaluation. Discussed patient that she should warn other physicians about her reaction that she had today with contrast. Patient given EpiPen autoinjector iscase she experiences symptoms like this again. Patient to be discharge. Disposition Clinical Impression: Allergic reaction Disposition: HOME SELF-CARE Condition: Good Instructions: Anaphylaxis (ED) Prescriptions: EPINEPHrine [Epipen 2-Alexandre] 0.3 mg IM ONCE PRN #1 pkg PRN Reason: Allergic Reaction Is patient prescribed a controlled substance at d/c from ED?: No Referrals: Erasto Bravo DO [Primary Care Provider] - 1-2 days Time of Disposition: 19:37
[2018-07-10 19:55] VITALS: BP 145/86; PULSE 62; RESP 19; TEMP 97.9
== END 2018-07-10 19:44 | disposition home or self-care (01) ==
LOC: EC 17:16
DX: R09.89 Other specified symptoms and signs involving the circulatory and respiratory systems (principal); T50.8X5A Adverse effect of diagnostic agents, initial encounter; E11.9 Type 2 diabetes mellitus without complications; M19.90 Unspecified osteoarthritis, unspecified site; G20 Parkinson's disease; E07.9 Disorder of thyroid, unspecified; Z88.1 Allergy status to other antibiotic agents; Z88.8 Allergy status to other drugs, medicaments and biological substances; Z91.041 Radiographic dye allergy status; Z79.1 Long term (current) use of non-steroidal anti-inflammatories (NSAID); Z79.899 Other long term (current) drug therapy; Z53.8 Procedure and treatment not carried out for other reasons
CPT/HCPCS: 99283; 96374; 96375 ×2; 96372; J0171; J1200; J1100

== ENCOUNTER → 2018-07-10 | Outpatient (CLI) | payer OTHER, MEDICARE ==
[2018-07-10 16:23] LABS: Blood Urea Nitrogen 12 mg/dL (7-17)
--- NOTE | 2018-07-11 08:23 | CT ---
EXAMINATION TYPE: CT abdomen wo/w con DATE OF EXAM: 07/10/2018 COMPARISON: 12/06/2015 HISTORY: f/u abnormal finding on adrenals [address] DLP: 2224.2 mGycm CONTRAST: CT scan of the abdomen is performed with Oral Contrast and with IV Contrast, patient injected with 1 00 mL of Isovue 300. FINDINGS: LUNG BASES-: No visible nodule. No infiltrate. Small hiatal hernia noted. LIVER/GB: Cholecystectomy clips are in place. No space occupying hepatic lesion. Biliary tree is o f normal caliber. PANCREAS: No inflammation. No distinct mass. SPLEEN: No splenic enlargement. No lesion seen. ADRENALS: Left adrenal nodule measures 1.5 cm unchanged from prior examination. Unenhanced Hounsfield unit measurement is -16 indicating underlying microscopic fat. Following contrast administration Cookie nsfield unit measurement is 50. Findings are compatible with adrenal adenoma. Right adrenal gland is unremarkable. KIDNEYS/BLADDER: No hydronephrosis. No nephrolithiasis. No distinct renal mass. Urinary bladder g rossly unremarkable. BOWEL: Normal bowel caliber. No inflammation. LYMPH NODES: No greater than 1cm abdominal or pelvic lymph nodes are appreciated. AORTA: No significant abnormality. OSSEOUS STRUCTURES: No significant abnormality is seen. OTHER: No significant additional abnormality is seen. IMPRESSION: 1. Stable left adrenal adenoma. 2. Small hiatal hernia.
== END | disposition home or self-care (01) ==
LOC: RADCTMAIN 15:11
PROVIDERS: ATTEND Family Medicine
DX: D35.02 Benign neoplasm of left adrenal gland (principal); K44.9 Diaphragmatic hernia without obstruction or gangrene; Z13.9 Encounter for screening, unspecified
CPT/HCPCS: 82565; 84520; 74170; 36415; Q9967

== ENCOUNTER → 2019-02-23 | Outpatient (CLI) | payer OTHER, MEDICARE ==
--- NOTE | 2019-02-26 09:45 | MM ---
Reason for exam: screening (asymptomatic). Last mammogram was performed 1 year and 1 month ago. History: Patient is postmenopausal. Physical Findings: A clinical breast exam by your physician is recommended on an annual basis and results should be correlated with mammographic findings. MG 3D Screening Mammo W/Cad Bilateral CC and MLO view(s) were taken. Prior study comparison: January 10, 2018, bilateral MG 3d screening mammo w/cad. November 29, 2016, bilateral MG screening mammo w CAD. There are scattered fibroglandular densities. There is no discrete abnormality. No significant changes when compared with prior studies. ASSESSMENT: Negative, BI-RAD 1 RECOMMENDATION: Routine screening mammogram of both breasts in 1 year.
== END | disposition home or self-care (01) ==
LOC: RADMAMWWP 10:18
PROVIDERS: ATTEND Family Medicine
DX: Z12.31 Encounter for screening mammogram for malignant neoplasm of breast (principal)
CPT/HCPCS: 77063; 77067

== ENCOUNTER → 2019-03-28 | Outpatient (CLI) | payer OTHER, MEDICARE ==
[2019-03-28 17:09] LABS: HCT 40.5 % (34.0-46.0); HGB 13.3 gm/dL (11.4-16.0); MCH 30.1 pg (25.0-35.0); MCHC 32.8 g/dL (31.0-37.0); MCV 91.8 fL (80.0-100.0); Mean Platelet Volume 6.9; Platelet Count 354 k/uL (150-450); RBC 4.41 m/uL (3.80-5.40); RDW 13.6 % (11.5-15.5); WBC 9.5 k/uL (3.8-10.6)
[2019-03-28 17:16] LABS: INR 0.9 (<1.2); Partial Thromboplastin Time 24.5 sec (22.0-30.0)
[2019-03-29 00:33] LABS: Iron Saturation 19.94 (12.00-45.00)
[2019-03-29 00:41] LABS: African American GFR (CKD) 125.4 (60.0-200.0); Albumin 4.1 g/dL (3.80-4.90); Albumin/Globulin Ratio 1.86 (1.60-3.17); Anion Gap 11.4 mmol/L (4.00-12.00); Carbon Dioxide 24.6 mmol/L (21.6-31.8); Chol/HDL Ratio 2.49; Globulin 2.2 g/dL (1.6-3.3); Magnesium 1.8 mg/dL (1.5-2.4); Non-African American GFR(CKD) 108.2 (60.0-200.0); Phosphorus 3.6 mg/dL (2.4-5.1); Potassium 3.9 mmol/L (3.5-5.5); Total Bilirubin 0.3 mg/dL (0.3-1.2); Total Protein 6.3 g/dL (6.2-8.2)
[2019-03-29 00:44] LABS: Vitamin D 25 Hydroxy 50.8 ng/mL (30.0-100.0)
[2019-03-29 01:16] LABS: Ferritin 17.7 ng/mL (10.0-291.0); Folate, Serum 18.2 ng/mL
[2019-03-29 02:04] LABS: Hemoglobin A1C 5.8 % (4.0-6.0)
[2019-03-29 14:44] LABS: Zinc, Serum 34 ug/dL (60-130)
[2019-03-29 15:12] LABS: Vitamin A 37 ug/dL (38-106)
[2019-04-03 17:06] LABS: Selenium 119 mcg/L (63-160)
[2019-04-09 18:26] LABS: Vit B1(Thiamine) 62 ug/L (38-122)
== END | disposition home or self-care (01) ==
LOC: LABWHC1 16:29
PROVIDERS: ATTEND Surgery Plastic and Reconstructive Surgery
DX: E21.1 Secondary hyperparathyroidism, not elsewhere classified (principal); E55.9 Vitamin D deficiency, unspecified; K74.1 Hepatic sclerosis; N19 Unspecified kidney failure; K50.90 Crohn's disease, unspecified, without complications; K90.9 Intestinal malabsorption, unspecified
CPT/HCPCS: 36415; 80053; 80061; 82306; 82525; 82607; 82728; 82746; 83036; 83540; 83550; 83735; 83970; 84100; 84134; 84255; 84425; 84443; 84590; 84630; 85027; 85610; 85730

== ENCOUNTER → 2019-03-28 | Outpatient (CLI) | payer OTHER, MEDICARE ==
[2019-03-28 15:26] VITALS: BP 151/84; PULSE 55; RESP 16; TEMP 97.6; BMI 34.7
--- NOTE | 2019-03-28 16:04 | P.PN ---
Subjective Progress Note Date: 03/28/19 DATE: 03/28/2019 CHIEF COMPLAINT: Follow-up gastric bypass HISTORY OF PRESENT ILLNESS: The patient is a 58-year-old female status post gastric bypass March [address] Streeter. She is 4 years out. She comes in with weight gain and hair loss. She has gained weight in 1 year per her report. She has occasional loose stools. No reports of abdominal pain. Her ideal body weight is 154 pounds for her height is 5 foot 6 inches. Her highest weight was 310 pounds. Her initial BMI was 50.1. Today she comes in weighing 215 pounds from 245 pounds, 10 months ago. She has lost 30 pounds in 10 months. Her body mass index reduced to 34.8. Lifetime weight loss 95 pounds. Percent excess weight loss is 59% PAST MEDICAL HISTORY: 1. Morbid obesity. 2. Body mass index of 50.1, initial 3. Osteoarthritis of the knees. 4. Osteoarthritis of the hips. 5. Osteoarthritis of the lower back. 6. Obstructive sleep apnea. 7. Hypertensive heart disease. 8. Depressive disorder 9. Kidney stones 10. Diabetes 2 to 11. Hypothyroidism 12. Parkinson's disease PAST SURGICAL HISTORY: 1. Gastric bypass 2. Knee arthroscopy 3. Varicose vein surgery 4. Cholecystectomy 5. Tonsillectomy 6. Heart catheterization HOME MEDICATIONS: ALLERGIES: Home Medications Medication Instructions Recorded Confirmed Type Levothyroxine Sodium [Synthroid] 50 mcg PO DAILY 12/24/13 05/18/18 History Primidone [Mysoline] 100 mg PO BID 03/23/14 05/18/18 History Ergocalciferol [Vitamin D2] 50,000 unit PO MO 09/10/15 05/18/18 History Carbidopa-Levodopa 25-100 mg 1 tab PO QID 03/18/17 05/18/18 History [Sinemet 25-100] Alive 1 tab PO DAILY 04/18/18 05/18/18 History Naproxen 500 mg PO BID PRN 04/18/18 05/18/18 History Vitamin A Acetate [Vitamin A] 10,000 unit SL DAILY 04/18/18 05/18/18 History rOPINIRole HCL [Requip] 2 mg PO TID 04/18/18 05/18/18 History Allergies Allergy/AdvReac Type Severity Reaction Status Date / Time metformin Allergy Rash/Hives Verified 04/19/18 07:02 metronidazole Allergy Unknown Verified 04/19/18 07:02 oxybutynin Allergy Wheezing Verified 04/19/18 07:02 SOCIAL HISTORY: No active tobacco use. FAMILY HISTORY: No family history of ulcerative colitis disease or Crohn's disease. Family history of morbid obesity. No lupus in the family. No reports of stomach or esophageal cancer. Family history of diabetes type 2. REVIEW OF ORGAN SYSTEMS: CONSTITUTIONAL: Her highest weight was 310 pounds. Her initial BMI was 50.1. Her ideal body weight is 154 pounds for height 5 foot 6 inches. HEENT: Denies any active troubles with vision or hearing. No troubles with swallowing. ENDOCRINE: Previous diabetes. Has hypothyroidism. CARDIOVASCULAR: No reports of palpitations or heart attacks or chest pain. RESPIRATORY: Has daytime somnolence. No asthma. GI: Denies any bright red blood per rectum. No diarrhea or constipation. MUSCULOSKELETAL: Has lower back pain and joint pain. Has osteoarthritis of the knees. NEURO: No headaches. No seizure disorders. PSYCH: No depression or suicidal ideation. RHEUMATOLOGIC: No lupus. No rheumatoid arthritis. HEMATOLOGIC: Denies any abnormal bleeding or bruising. No personal history of DVTs. SKIN: No skin cancer. Has panniculitis of the abdomen. Has hair loss. PHYSICAL EXAM: VITAL SIGNS: Height 5 foot 6 inches, weight 215 pounds. BMI 34.8 Vital Signs Temp 97.6 F 03/28/19 15:23 Pulse 55 L 03/28/19 15:23 Resp 16 03/28/19 15:23 BP 151/84 03/28/19 15:23 Pulse Ox 97 03/28/19 15:23 GENERAL: Well-developed in no acute distress. HEENT: No scleral icterus. Extraocular movements grossly intact. Hears conversational speech. No nasal drainage. NECK: Supple without lymphadenopathy. CHEST: Nonlabored respirations with equal bilateral excursions. CARDIOVASCULAR: Regular rate and regular rhythm. Distal 2+ pulses. ABDOMEN: Obese, soft, nontender, nondistended. No hernias. MUSCULOSKELETAL: No clubbing, cyanosis. Gross strength 5/5 distal lower extremities. No pre-tibial pitting edema. NEURO: No focal or lateralizing signs. Cranial nerves 2 through 12 grossly within normal limits. PSYCH: Appropriate affect. Alert and oriented to person, place and time. SKIN: Good skin turgor. Well perfused. ASSESSMENT: 1. Morbid obesity due to excess calories. 2. Body mass index of 50.1 to 34.8 3. Osteoarthritis of the knees. 4. Osteoarthritis of the hips. 5. Osteoarthritis of the lower back. 6. Obstructive sleep apnea. 7. Hypertensive heart disease. 8. Hypothyroidism. 9. Family history of morbid obesity. 10. Family history of diabetes type 2. 11. Status post gastric bypass 12. Panniculitis 13. Secondary hyperparathyroidism 14. Hair loss PLAN: 1. Bariatric labs for evaluation. 2. Recommend dietary assessment. ADDENDUM: PTH is elevated - will need calcium intake 1200 mg daily Zinc is low - 50 mg daily Vitamin A is low - 8000 units daily Objective - Vital Signs Vital signs: Vital Signs Temp 97.6 F 03/28/19 15:23 Pulse 55 L 03/28/19 15:23 Resp 16 03/28/19 15:23 BP 151/84 03/28/19 15:23 Pulse Ox 97 03/28/19 15:23 Intake & Output 03/27/19 03/28/19 03/28/19 18:59 06:59 18:59 Weight 97.795 kg
== END | disposition home or self-care (01) ==
LOC: BARWHC3 15:02
PROVIDERS: ATTEND Surgery Plastic and Reconstructive Surgery
DX: Z48.815 Encounter for surgical aftercare following surgery on the digestive system (principal); E66.01 Morbid (severe) obesity due to excess calories; M17.0 Bilateral primary osteoarthritis of knee; M16.0 Bilateral primary osteoarthritis of hip; G47.33 Obstructive sleep apnea (adult) (pediatric); I11.9 Hypertensive heart disease without heart failure; E03.9 Hypothyroidism, unspecified; M79.3 Panniculitis, unspecified; E21.1 Secondary hyperparathyroidism, not elsewhere classified; L65.9 Nonscarring hair loss, unspecified; Z83.3 Family history of diabetes mellitus; Z98.84 Bariatric surgery status; Z68.34 Body mass index [BMI] 34.0-34.9, adult; Z84.89 Family history of other specified conditions; Z79.899 Other long term (current) drug therapy; Z79.1 Long term (current) use of non-steroidal anti-inflammatories (NSAID); Z88.8 Allergy status to other drugs, medicaments and biological substances; Z88.1 Allergy status to other antibiotic agents; Z90.49 Acquired absence of other specified parts of digestive tract
CPT/HCPCS: 97803; 99211

== ENCOUNTER → 2019-05-02 | Outpatient (CLI) | payer OTHER, MEDICARE ==
[2019-05-02 16:25] VITALS: BMI 34.5
--- NOTE | 2019-05-02 16:26 | P.PN ---
Subjective Progress Note Date: 05/02/19 DATE: 05/02/2019 CHIEF COMPLAINT: Follow-up gastric bypass HISTORY OF PRESENT ILLNESS: The patient is a 58-year-old female status post gastric bypass March [address] Streeter. She is 4 years out. She comes in with troubles with her skin and panniculitis. She has less hair loss with correction of her diet and increased protein intake. She increasing her protein intake. She uses Zinc oxide for her skin. She is using Nystatin powder. Her personal goal is to get to 150 to 195 pounds. Her personal weight loss is at least between 190 and 210 pounds. Her ideal body weight is 154 pounds for her height is 5 foot 6 inches. Her highest weight was 310 pounds. Her initial BMI was 50.1. Today she comes in weighing 214 pounds from 215 pounds, 1 month ago. She has lost 2 pounds in 1 month. Her body mass index reduced to 34.5. Lifetime weight loss is 96 pounds. Percent excess weight loss is 62% PAST MEDICAL HISTORY: 1. Morbid obesity. 2. Body mass index of 50.1, initial 3. Osteoarthritis of the knees. 4. Osteoarthritis of the hips. 5. Osteoarthritis of the lower back. 6. Obstructive sleep apnea. 7. Hypertensive heart disease. 8. Depressive disorder 9. Kidney stones 10. Diabetes 2 to 11. Hypothyroidism 12. Parkinson's disease PAST SURGICAL HISTORY: 1. Gastric bypass 2. Knee arthroscopy 3. Varicose vein surgery 4. Cholecystectomy 5. Tonsillectomy 6. Heart catheterization HOME MEDICATIONS: ALLERGIES: Home Medications Medication Instructions Recorded Confirmed Type Levothyroxine Sodium [Synthroid] 50 mcg PO DAILY 12/24/13 05/18/18 History Primidone [Mysoline] 100 mg PO BID 03/23/14 05/18/18 History Ergocalciferol [Vitamin D2] 50,000 unit PO MO 09/10/15 05/18/18 History Carbidopa-Levodopa 25-100 mg 1 tab PO QID 03/18/17 05/18/18 History [Sinemet 25-100] Alive 1 tab PO DAILY 04/18/18 05/18/18 History Naproxen 500 mg PO BID PRN 04/18/18 05/18/18 History Vitamin A Acetate [Vitamin A] 10,000 unit SL DAILY 04/18/18 05/18/18 History rOPINIRole HCL [Requip] 2 mg PO TID 04/18/18 05/18/18 History Allergies Allergy/AdvReac Type Severity Reaction Status Date / Time metformin Allergy Rash/Hives Verified 04/19/18 07:02 metronidazole Allergy Unknown Verified 04/19/18 07:02 oxybutynin Allergy Wheezing Verified 04/19/18 07:02 SOCIAL HISTORY: No active tobacco use. FAMILY HISTORY: No family history of ulcerative colitis disease or Crohn's dise ase. Family history of morbid obesity. No lupus in the family. No reports of stomach or esophageal cancer. Family history of diabetes type 2. REVIEW OF ORGAN SYSTEMS: CONSTITUTIONAL: Her highest weight was 310 pounds. Her initial BMI was 50.1. Her ideal body weight is 154 pounds for height 5 foot 6 inches. HEENT: Denies any active troubles with vision or hearing. No troubles with swallowing. ENDOCRINE: Previous diabetes. Has hypothyroidism. CARDIOVASCULAR: No reports of palpitations or heart attacks or chest pain. RESPIRATORY: Has daytime somnolence. No asthma. GI: Denies any bright red blood per rectum. No diarrhea or constipation. MUSCULOSKELETAL: Has lower back pain and joint pain. Has osteoarthritis of the knees. NEURO: No headaches. No seizure disorders. PSYCH: No depression or suicidal ideation. RHEUMATOLOGIC: No lupus. No rheumatoid arthritis. HEMATOLOGIC: Denies any abnormal bleeding or bruising. No personal history of DVTs. SKIN: No skin cancer. Has panniculitis of the abdomen. Has hair loss. PHYSICAL EXAM: VITAL SIGNS: Height 5 foot 6 inches, weight 214 pounds. BMI 34.5 Vital Signs Temp 97.9 F 05/02/19 15:45 Pulse 51 L 05/02/19 15:45 Resp BP 161/107 05/02/19 16:15 Pulse Ox GENERAL: Well-developed in no acute distress. HEENT: No scleral icterus. Extraocular movements grossly intact. Hears conversational speech. No nasal drainage. NECK: Supple without lymphadenopathy. CHEST: Nonlabored respirations with equal bilateral excursions. CARDIOVASCULAR: Regular rate and regular rhythm. Distal 2+ pulses. ABDOMEN: Obese, soft, nontender, nondistended. No hernias. Pannus over 20 pounds found on exam. MUSCULOSKELETAL: No clubbing, cyanosis. Gross strength 5/5 distal lower extremities. No pre-tibial pitting edema. NEURO: No focal or lateralizing signs. Cranial nerves 2 through 12 grossly within normal limits. PSYCH: Appropriate affect. Alert and oriented to person, place and time. SKIN: Good skin turgor. Well perfused. LABS: Reviewed with multiple deficiencies ASSESSMENT: 1. Morbid obesity due to excess calories. 2. Body mass index of 50.1 to 34.5 3. Osteoarthritis of the knees. 4. Osteoarthritis of the hips. 5. Osteoarthritis of the lower back. 6. Obstructive sleep apnea. 7. Hypertensive heart disease. 8. Hypothyroidism. 9. Family history of morbid obesity. 10. Family history of diabetes type 2. 11. Status post gastric bypass 12. Panniculitis 13. Secondary hyperparathyroidism 14. Hair loss PLAN: 1. Recommend increase multivitamin daily 2. Bariatric labs reviewed with correction 3. PTH is elevated - will need calcium intake 1200 mg daily 4. Zinc is low - 50 mg daily advised 5. Vitamin A is low - 8000 units daily advised 6. Nystatin powder for panniculitis prescribed.
[2019-05-02 17:01] VITALS: PULSE 51; TEMP 97.9
[2019-05-02 17:05] VITALS: BP 161/107
== END | disposition home or self-care (01) ==
LOC: BARWHC3 14:48
PROVIDERS: ATTEND Surgery Plastic and Reconstructive Surgery
DX: Z48.815 Encounter for surgical aftercare following surgery on the digestive system (principal); E66.01 Morbid (severe) obesity due to excess calories; Z68.34 Body mass index [BMI] 34.0-34.9, adult; M17.10 Unilateral primary osteoarthritis, unspecified knee; M16.10 Unilateral primary osteoarthritis, unspecified hip; M47.816 Spondylosis without myelopathy or radiculopathy, lumbar region; G47.33 Obstructive sleep apnea (adult) (pediatric); E03.9 Hypothyroidism, unspecified; I11.9 Hypertensive heart disease without heart failure; N25.81 Secondary hyperparathyroidism of renal origin; L65.9 Nonscarring hair loss, unspecified; M79.3 Panniculitis, unspecified; Z83.49 Family history of other endocrine, nutritional and metabolic diseases; Z83.3 Family history of diabetes mellitus; Z90.49 Acquired absence of other specified parts of digestive tract; Z79.899 Other long term (current) drug therapy; Z88.2 Allergy status to sulfonamides; Z88.1 Allergy status to other antibiotic agents
CPT/HCPCS: 97803; 99211

== ENCOUNTER → 2019-08-22 | Outpatient (CLI) | payer OTHER, MEDICARE ==
[2019-08-22 16:41] VITALS: BMI 32.3
[2019-08-22 16:44] VITALS: BP 161/107; PULSE 56; TEMP 98.3
--- NOTE | 2019-08-22 17:18 | P.PN ---
Subjective Progress Note Date: 08/22/19 DATE: 08/22/2019 CHIEF COMPLAINT: Follow-up gastric bypass HISTORY OF PRESENT ILLNESS: The patient is a 59-year-old female status post gastric bypass March [address] Streeter. She is 4+ years out. She comes in with more weight loss. She has lost over 100+ pounds. She denies abdominal pain. She denies dysphagia. Her ideal body weight is 154 pounds for her height is 5 foot 6 inches. Her highest weight was 310 pounds. Her initial BMI was 50.1. Today she comes in weighing 199 pounds from 214 pounds, 4 months ago. She has lost 14 pounds in 4 months. Her body mass index reduced to 32.3. Lifetime weight loss is 110 pounds. Percent excess weight loss is 71% PHYSICAL EXAM: VITAL SIGNS: Height 5 foot 6 inches, weight 199 pounds. BMI 32.3 Vital Signs Temp 98.3 F 08/22/19 16:36 Pulse 56 L 08/22/19 16:36 Resp BP 161/107 08/22/19 16:36 Pulse Ox GENERAL: Well-developed in no acute distress. HEENT: No scleral icterus. Extraocular movements grossly intact. Hears conversational speech. No nasal drainage. NECK: Supple without lymphadenopathy. CHEST: Nonlabored respirations with equal bilateral excursions. CARDIOVASCULAR: Regular rate and regular rhythm. Distal 2+ pulses. ABDOMEN: Obese, soft, nontender, nondistended. No hernias. Pannus over 20 p ounds found on exam. MUSCULOSKELETAL: No clubbing, cyanosis. Gross strength 5/5 distal lower extremities. NEURO: No focal or lateralizing signs. Cranial nerves 2 through 12 grossly within normal limits. PSYCH: Appropriate affect. Alert and oriented to person, place and time. SKIN: Good skin turgor. Well perfused. ASSESSMENT: 1. Morbid obesity due to excess calories. 2. Body mass index of 50.1 to 32.3 3. Osteoarthritis of the knees. 4. Osteoarthritis of the hips. 5. Osteoarthritis of the lower back. 6. Obstructive sleep apnea. 7. Hypertensive heart disease. 8. Hypothyroidism. 9. Family history of morbid obesity. 10. Family history of diabetes type 2. 11. Status post gastric bypass 12. Panniculitis 13. Secondary hyperparathyroidism 14. Hair loss PLAN: 1. Recommend 1 month follow up. Objective - Vital Signs Vital signs: Vital Signs Temp 98.3 F 08/22/19 16:36 Pulse 56 L 08/22/19 16:36 Resp BP 161/107 08/22/19 16:36 Pulse Ox Intake & Output 08/21/19 08/22/19 08/22/19 18:59 06:59 18:59 Weight 90.718 kg
== END | disposition home or self-care (01) ==
LOC: BARWHC3 14:34
PROVIDERS: ATTEND Surgery Plastic and Reconstructive Surgery
DX: E66.01 Morbid (severe) obesity due to excess calories (principal); Z68.32 Body mass index [BMI] 32.0-32.9, adult; M17.0 Bilateral primary osteoarthritis of knee; M16.0 Bilateral primary osteoarthritis of hip; M47.816 Spondylosis without myelopathy or radiculopathy, lumbar region; G47.33 Obstructive sleep apnea (adult) (pediatric); I11.9 Hypertensive heart disease without heart failure; E03.9 Hypothyroidism, unspecified; M79.3 Panniculitis, unspecified; N25.81 Secondary hyperparathyroidism of renal origin; L65.9 Nonscarring hair loss, unspecified; Z83.3 Family history of diabetes mellitus; Z83.49 Family history of other endocrine, nutritional and metabolic diseases; Z98.84 Bariatric surgery status
CPT/HCPCS: 99211

== ENCOUNTER → 2019-09-26 | Outpatient (CLI) | payer MEDICARE, OTHER ==
[2019-09-26 13:29] VITALS: BP 172/82; PULSE 62; TEMP 97.8; BMI 31.3
--- NOTE | 2019-09-26 13:54 | P.PN ---
Subjective Progress Note Date: 09/26/19 DATE: 09/26/2019 CHIEF COMPLAINT: Follow-up gastric bypass HISTORY OF PRESENT ILLNESS: The patient is a 59-year-old female status post gastric bypass March 2015. She is 4 years out. She comes in with problems with her pannus. She has troubles with panniculitis including with Nystatin powder. She reports lower back pain. Her ideal body weight is 154 pounds for her height is 5 foot 6 inches. Her highest weight was 310 pounds. Her initial BMI was 50.1. Today she comes in weighing 194 pounds from 199 pounds, 1 month ago. She has lost 6 pounds in 1 month. Her body mass index reduced to 31.3. Lifetime weight loss is 116 pounds. Lifetime percent excess weight loss is 75% PHYSICAL EXAM: VITAL SIGNS: Height 5 foot 6 inches, weight 194 pounds. BMI 31.3 Vital Signs Temp 97.8 F 09/26/19 13:13 Pulse 62 09/26/19 13:13 Resp BP 172/82 09/26/19 13:13 Pulse Ox GENERAL: Well-developed in no acute distress. HEENT: No scleral icterus. Extraocular movements grossly intact. Hears conversational speech. No nasal drainage. NECK: Supple without lymphadenopathy. CHEST: Nonlabored respirations with equal bilateral excursions. CARDIOVASCULAR: Regular rate and regular rhythm. Distal 2+ pulses. ABDOMEN: Obese, soft, nontender, nondistended. Pannus over 10 + pounds MUSCULOSKELETAL: No clubbing, cyanosis. NEURO: No focal or lateralizing signs. Cranial nerves 2 through 12 grossly within normal limits. PSYCH: Appropriate affect. Alert and oriented to person, place and time. SKIN: Good skin turgor. Well perfused. LABS: Vitamin A and Zinc were low ASSESSMENT: 1. Morbid obesity due to excess calories. 2. Body mass index of 50.1 to 31.3 3. Osteoarthritis of the knees. 4. Osteoarthritis of the hips. 5. Osteoarthritis of the lower back. 6. Obstructive sleep apnea. 7. Hypertensive heart disease. 8. Hypothyroidism. 9. Family history of morbid obesity. 10. Family history of diabetes type 2. 11. Status post gastric bypass 12. Panniculitis 13. Secondary hyperparathyroidism 14. Hair loss 15. Vitamin A deficiency 16. Zinc deficiency PLAN: 1. Prior to any panniculectomy, recommend correction of labs 2. Recommend high protein before and after diet advised. Laboratory Last Values WBC 9.2 k/uL (3.8-10.6) 09/26/19 14:16 RBC 4.92 m/uL (3.80-5.40) 09/26/19 14:16 Hgb 14.2 gm/dL (11.4-16.0) 09/26/19 14:16 Hct 43.7 % (34.0-46.0) 09/26/19 14:16 MCV 89.0 fL (80.0-100.0) 09/26/19 14:16 MCH 28.9 pg (25.0-35.0) 09/26/19 14:16 MCHC 32.5 g/dL (31.0-37.0) 09/26/19 14:16 RDW 13.6 % (11.5-15.5) 09/26/19 14:16 Plt Count 392 k/uL (150-450) 09/26/19 14:16 Neutrophils % 66 % 09/26/19 14:16 Lymphocytes % 27 % 09/26/19 14:16 Monocytes % 5 % 09/26/19 14:16 Eosinophils % 1 % 09/26/19 14:16 Basophils % 0 % 09/26/19 14:16 Neutrophils # 6.0 k/uL (1.3-7.7) 09/26/19 14:16 Lymphocytes # 2.4 k/uL (1.0-4.8) 09/26/19 14:16 Monocytes # 0.5 k/uL (0-1.0) 09/26/19 14:16 Eosinophils # 0.1 k/uL (0-0.7) 09/26/19 14:16 Basophils # 0.0 k/uL (0-0.2) 09/26/19 14:16 PT 9.7 sec (9.0-12.0) 09/26/19 14:16 INR 0.9 (<1.2) 09/26/19 14:16 APTT 22.6 sec (22.0-30.0) 09/26/19 14:16 Sodium 142 mmol/L (135-145) 09/26/19 14:16 Potassium 4.3 mmol/L (3.5-5.5) 09/26/19 14:16 Chloride 107 mmol/L (96-109) 09/26/19 14:16 Carbon Dioxide 23.3 mmol/L (21.6-31.8) 09/26/19 14:16 Anion Gap 11.70 mmol/L (4.00-12.00) 09/26/19 14:16 BUN 12.0 mg/dL (9.0-27.0) 09/26/19 14:16 Creatinine 0.6 mg/dL (0.6-1.5) 09/26/19 14:16 Est GFR (CKD-EPI)AfAm 117.3 (60.0-200.0) 09/26/19 14:16 Est GFR (CKD-EPI)NonAf 101.2 (60.0-200.0) 09/26/19 14:16 BUN/Creatinine Ratio 20.00 Ratio (12.00-20.00) 09/26/19 14:16 Glucose 87 mg/dL (70-110) 09/26/19 14:[address] Glu mg/dL 126 09/26/19 14:16 Hemoglobin A1c 6.0 % (4.0-6.0) 09/26/19 14:16 Calcium 9.2 mg/dL (8.7-10.3) 09/26/19 14:16 Phosphorus 4.6 mg/dL (2.4-5.1) 09/26/19 14:16 Magnesium 1.8 mg/dL (1.5-2.4) 09/26/19 14:16 Iron 71 ug/dL (50-170) 09/26/19 14:16 TIBC 348 ug/dL (228-460) 09/26/19 14:16 % Saturation 20.40 (12.00-45.00) 09/26/19 14:16 Ferritin 15.8 ng/mL (10.0-291.0) 09/26/19 14:16 Total Bilirubin 0.2 mg/dL (0.3-1.2) L 09/26/19 14:16 AST 33 U/L (13-35) 09/26/19 14:16 ALT 23 U/L (8-44) 09/26/19 14:16 Alkaline Phosphatase 82 U/L (41-126) 09/26/19 14:16 Total Protein 6.5 g/dL (6.2-8.2) 09/26/19 14:16 Albumin 4.40 g/dL (3.80-4.90) 09/26/19 14:16 Globulin 2.1 g/dL (1.6-3.3) 09/26/19 14:16 Albumin/Globulin Ratio 2.10 g/dL (1.60-3.17) 09/26/19 14:16 Prealbumin 21.0 mg/dL (18.0-42.0) 09/26/19 14:16 Triglycerides 86.0 mg/dL (0.0-149.0) 09/26/19 14:16 Cholesterol 170 mg/dL (0-200) 09/26/19 14:16 LDL Cholesterol, Calc 88.8 mg/dL (0.0-131.0) 09/26/19 14:16 VLDL Cholesterol, Calc 17.20 mg/dL (5.00-40.00) 09/26/19 14:16 HDL Cholesterol 64.0 mg/dL (40.0-60.0) H 09/26/19 14:16 Cholesterol/HDL Ratio 2.66 09/26/19 14:16 Vitamin A 47 ug/dL (38-106) 09/26/19 14:16 Vitamin B1 62 ug/L (38-122) 09/26/19 14:16 Vitamin B12 469.0 pg/mL (200.0-944.0) 09/26/19 14:16 Vitamin D 25-Hydroxy 48.4 ng/mL (30.0-100.0) 09/26/19 14:16 Folate 17.4 ng/mL 09/26/19 14:16 TSH 1.980 uIU/mL (0.350-5.500) 09/26/19 14:16 Free T4 1.20 ng/dL (0.80-1.80) 09/26/19 14:16 PTH Intact 147.7 pg/mL (14.0-72.0) H 09/26/19 14:16 Copper 1574 ug/L (810-1990) 09/26/19 14:16 Selenium 114 mcg/L (63-160) 09/26/19 14:16 Zinc 64 ug/dL (60-130) 09/26/19 14:16 Objective - Vital Signs Vital signs: Vital Signs Temp 97.8 F 09/26/19 13:13 Pulse 62 09/26/19 13:13 Resp BP 172/82 09/26/19 13:13 Pulse Ox Intake & Output 09/25/19 09/26/19 09/26/19 18:59 06:59 18:59 Weight 87.997 kg - Labs CBC & Chem 7: 09/26/19 14:16 09/26/19 14:16
[2019-09-26 14:57] LABS: Basophils % (A) 0 %; Eosinophils # (A) 0.1 k/uL (0-0.7); Eosinophils % (A) 1 %; HCT 43.7 % (34.0-46.0); HGB 14.2 gm/dL (11.4-16.0); Lymphocytes # (A) 2.4 k/uL (1.0-4.8); Lymphocytes % (A) 27 %; MCH 28.9 pg (25.0-35.0); MCHC 32.5 g/dL (31.0-37.0); Mean Platelet Volume 7.1; Monocytes # (A) 0.5 k/uL (0-1.0); Monocytes % (A) 5 %; Neutrophils % (A) 66 %; Platelet Count 392 k/uL (150-450); RBC 4.92 m/uL (3.80-5.40); RDW 13.6 % (11.5-15.5); WBC 9.2 k/uL (3.8-10.6)
[2019-09-26 15:20] LABS: INR 0.9 (<1.2); Partial Thromboplastin Time 22.6 sec (22.0-30.0); Prothrombin Time 9.7 sec (9.0-12.0)
[2019-09-26 19:17] LABS: % Iron Saturation 20.4 (12.00-45.00); African American GFR (CKD) 117.3 (60.0-200.0); Albumin 4.4 g/dL (3.80-4.90); Albumin/Globulin Ratio 2.1 (1.60-3.17); Anion Gap 11.7 mmol/L (4.00-12.00); Calcium 9.2 mg/dL (8.7-10.3); Carbon Dioxide 23.3 mmol/L (21.6-31.8); Chol/HDL Ratio 2.66; Globulin 2.1 g/dL (1.6-3.3); LDL Cholesterol,Calculated 88.8 mg/dL (0.0-131.0); Magnesium 1.8 mg/dL (1.5-2.4); Non-African American GFR(CKD) 101.2 (60.0-200.0); Phosphorus 4.6 mg/dL (2.4-5.1); Potassium 4.3 mmol/L (3.5-5.5); Total Bilirubin 0.2 mg/dL (0.3-1.2); Total Protein 6.5 g/dL (6.2-8.2); VLDL Calculation 17.2 mg/dL (5.00-40.00)
[2019-09-26 19:26] LABS: T4, Free (Free Thyroxine) 1.2 ng/dL (0.80-1.80)
[2019-09-26 20:51] LABS: Ferritin 15.8 ng/mL (10.0-291.0); Folate, Serum 17.4 ng/mL
[2019-09-27 12:59] LABS: Zinc, Serum 64 ug/dL (60-130)
[2019-09-29 01:06] LABS: Selenium 114 mcg/L (63-160)
[2019-09-29 09:17] LABS: Vit B1(Thiamine) 62 ug/L (38-122)
[2019-09-29 10:26] LABS: Vitamin A 47 ug/dL (38-106)
== END | disposition home or self-care (01) ==
LOC: BARWHC3 12:54
PROVIDERS: ATTEND Surgery Plastic and Reconstructive Surgery
DX: E66.01 Morbid (severe) obesity due to excess calories (principal); Z68.31 Body mass index [BMI] 31.0-31.9, adult; M17.0 Bilateral primary osteoarthritis of knee; M16.0 Bilateral primary osteoarthritis of hip; M47.816 Spondylosis without myelopathy or radiculopathy, lumbar region; I11.9 Hypertensive heart disease without heart failure; M79.3 Panniculitis, unspecified; N25.81 Secondary hyperparathyroidism of renal origin; E50.9 Vitamin A deficiency, unspecified; E60 Dietary zinc deficiency; G47.33 Obstructive sleep apnea (adult) (pediatric); E03.8 Other specified hypothyroidism; E11.9 Type 2 diabetes mellitus without complications; Z98.84 Bariatric surgery status; E89.1 Postprocedural hypoinsulinemia; D50.9 Iron deficiency anemia, unspecified; K90.9 Intestinal malabsorption, unspecified; E55.9 Vitamin D deficiency, unspecified; K74.1 Hepatic sclerosis; K50.90 Crohn's disease, unspecified, without complications; N19 Unspecified kidney failure; Z83.3 Family history of diabetes mellitus; Z83.49 Family history of other endocrine, nutritional and metabolic diseases
CPT/HCPCS: 84255; 84134; 84439; 84425; 80061; 80053; 82607; 82728; 82525; 82746; 83540; 83550; 83735; 84100; 84443; 84590; 84630; 85025; 85610; 85730; 82306; 83970; 83036; G0463; 99211

== ENCOUNTER 2019-10-11 12:23 | Emergency (ER) | payer MEDICARE, OTHER ==
[2019-10-11] MEDS ORDERED: SODIUM CHLORIDE 0.9% 1,000 ML IV STA (12:35)
--- NOTE | 2019-10-11 12:49 | ED ---
General Adult HPI - General Chief complaint: Syncope Stated complaint: SYNCOPE Time Seen by Provider: 10/11/19 12:24 Source: patient Mode of arrival: EMS Limitations: no limitations - History of Present Illness Initial comments: Dictation was produced using [employer] dictation software. please excuse any grammatical, word or spelling errors. Chief Complaint: 59-year-old female with multiple comorbid disease presents after passing out. History of Present Illness: 59-year-old female she was on her way to [place]. She was able to drive herself to the [place] when she all of a sudden passed out. She was discovered approximately 15-20 minutes later found unresponsive in her car. EMS was: Patient is brought to the emergency department. Last week patient had a similar event. She was told that she was dehydrated. Patient denies any pain complaints. She does feel slightly weak. She has a history of bradycardia. She states her baseline heart rate is in the 40s. She does not take any blood thinner medications. She denies any history of seizures. Patient denies any constitutional symptoms. She does feel slight ly nauseated however no vomiting. Denies diarrhea. The ROS documented in this emergency department record has been reviewed and confirmed by me. Those systems with pertinent positive or negative responses have been documented in the HPI. All other systems are other negative and/or noncontributory. PHYSICAL EXAM: General Impression: Alert and oriented x3, not in acute distress HEENT: Normocephalic atraumatic, extra-ocular movements intact, pupils equal and reactive to light bilaterally, mucous membranes moist. Cardiovascular: Heart regular rate and rhythm, S1&S2 audible, no murmurs, rubs or gallops Chest: Lungs clear to auscultation bilaterally, no rhonchi, no wheeze, no rales Abdomen: Bowel sounds present, abdomen soft, non-tender, non-distended, no organomegaly Musculoskeletal: Pulses present and equal in all extremities, no peripheral edema Motor: no focal deficits noted Neurological: CN II-XII grossly intact, no focal motor or sensory deficits noted Skin: hyperpigmentation of the bilateral lower extremities Psych: Normal affect and mood ED course: 59-year-old female presents after syncopal episode. Upon arrival are within acceptable limits. Patient was observed on a monitored with heart rate dropping into the upper 40s. He states that bradycardia is normal for her. It is unclear whether patient had a postictal event considering she was discovered in her vehicle. She has no physical exam findings to suggest seizure. Abdomen evaluation obtained. Mild leukocytosis of 14.0 unclear significance per coag panel unremarkable. Metabolic panel is negative. Patient given intravenous fluids. She is well-appearing. Patient watched on the monitor with stable heart rates in the 50s. Patient states that this is her normal heart rate. She feels well she is ambulatory baseline she is tolerating by mouth. Patient will be discharge she is advised to follow-up with primary care physician. At this point is unclear what patient experienced. This concerned that perhaps she had some sort of drug reaction. Return parameters discussed. All questions answered. EKG interpretation: Ventricular rate 48, sinus bradycardia,. 184, QRS 92, QTC 409. No SC prolongation, no QTC prolongation, no ST or T-wave changes noted. - Related Data Home Medications Medication Instructions Recorded Confirmed Levothyroxine Sodium [Synthroid] 50 mcg PO DAILY 12/24/13 09/26/19 Primidone [Mysoline] 100 mg PO BID 03/23/14 09/26/19 Ergocalciferol [Vitamin D2] 50,000 unit PO MO 09/10/15 09/26/19 Carbidopa-Levodopa 25-100 mg 1 tab PO QID 03/18/17 09/26/19 [Sinemet 25-100] Vitamin A Acetate [Vitamin A] 10,000 unit SL DAILY 04/18/18 09/26/19 rOPINIRole HCL [Requip] 3 mg PO TID 04/18/18 09/26/19 Alive Multivitamin 1 tab PO DAILY 08/22/19 09/26/19 Previous Rx's Medication Instructions Recorded EPINEPHrine [Epipen 2-Alexandre] 0.3 mg IM ONCE PRN #1 pkg 07/10/18 Nystatin 100,000 Unit/gm Powd 1 applic TOPICAL BID #60 powder 08/22/19 [Mycostatin Powder] Allergies Allergy/AdvReac Type Severity Reaction Status Date / Time Iodinated Contrast Media Allergy Anaphylaxis Verified 09/26/19 13:24 [Iodinated Contrast- Oral and IV Dye] metformin Allergy Rash/Hives Verified 09/26/19 13:24 metronidazole Allergy Rash/Hives Verified 09/26/19 13:24 oxybutynin Allergy Wheezing Verified 09/26/19 13:24 Review of Systems ROS Statement: Those systems with pertinent positive or pertinent negative responses have been documented in the HPI. ROS Other: All systems not noted in ROS Statement are negative. Past Medical History Past Medical History: Diabetes Mellitus, Hypertension, Osteoarthritis (OA), Sleep Apnea/CPAP/BIPAP, Thyroid Disorder, Vascular Disorder Additional Past Medical History / Comment(s): PARKINSON'S W/ ESSENTIAL Tremors; no cpap used, hx kidney stones, diet control diabetic History of Any Multi-Drug Resistant Organisms: None Reported Past Surgical History: Bariatric Surgery, Cholecystectomy, Heart Catheterization, Orthopedic Surgery, Tonsillectomy Additional Past Surgical History / Comment(s): 03/25/15 Laparoscopic naldo en y gastric bypass (Dr. Carrillo). knee arthroscopy(not sure what knee), steph leg surgery varicose veins, Past Anesthesia/Blood Transfusion Reactions: Previous Problems w/ Anesthesia, Motion Sickness Additional Past Anesthesia/Blood Transfusion Reaction / Comment(s): "took extra time to come out" Past Psychological History: Depression Smoking Status: Never smoker Past Alcohol Use History: None Reported Past Drug Use History: None Reported - Past Family History Mother Family Medical History: No Reported History General Exam Limitations: no limitations Course Vital Signs 10/11/19 10/11/19 10/11/19 12:36 13:08 14:25 Temperature 98.6 F 97.4 F L Pulse Rate 58 L 52 L 56 L Respiratory 18 16 18 Rate Blood Pressure 148/103 145/78 125/75 O2 Sat by Pulse 98 98 97 Oximetry Medical Decision Making - Lab Data Result diagrams: 10/11/19 12:45 10/11/19 12:45 Lab Results 10/11/19 10/11/19 10/11/19 Range/Units 12:45 12:45 12:45 WBC 14.0 H (3.8-10.6) k/uL RBC 4.69 (3.80-5.40) m/uL Hgb 13.4 (11.4-16.0) gm/dL Hct 42.6 (34.0-46.0) % MCV 90.7 (80.0-100.0) fL MCH 28.5 (25.0-35.0) pg MCHC 31.5 (31.0-37.0) g/dL RDW 13.6 (11.5-15.5) % Plt Count 354 (150-450) k/uL Neutrophils % 85 % Lymphocytes % 11 % Monocytes % 3 % Eosinophils % 1 % Basophils % 0 % Neutrophils # 11.8 H (1.3-7.7) k/uL Lymphocytes # 1.5 (1.0-4.8) k/uL Monocytes # 0.5 (0-1.0) k/uL Eosinophils # 0.1 (0-0.7) k/uL Basophils # 0.0 (0-0.2) k/uL PT 10.0 (9.0-12.0) sec INR 1.0 (<1.2) APTT 21.3 L (22.0-30.0) sec Sodium 139 (137-145) mmol/L Potassium 4.8 (3.5-5.1) mmol/L Chloride 108 H (98-107) mmol/L Carbon Dioxide 24 (22-30) mmol/L Anion Gap 7 mmol/L BUN 13 (7-17) mg/dL Creatinine 0.51 L (0.52-1.04) mg/dL Est GFR (CKD-EPI)AfAm >90 (>60 ml/min/1.73 sqM) Est GFR (CKD-EPI)NonAf >90 (>60 ml/min/1.73 sqM) Glucose 119 H (74-99) mg/dL Plasma Lactic Acid Kenny (0.7-2.0) mmol/L Calcium 9.2 (8.4-10.2) mg/dL Magnesium 2.0 (1.6-2.3) mg/dL Total Bilirubin 0.5 (0.2-1.3) mg/dL AST 33 (14-36) U/L ALT <6 (4-34) U/L Alkaline Phosphatase 82 (38-126) U/L Troponin I (0.000-0.034) ng/mL Total Protein 7.0 (6.3-8.2) g/dL Albumin 4.0 (3.5-5.0) g/dL 10/11/19 10/11/19 Range/Units 12:45 12:45 WBC (3.8-10.6) k/uL RBC (3.80-5.40) m/uL Hgb (11.4-16.0) gm/dL Hct (34.0-46.0) % MCV (80.0-100.0) fL MCH (25.0-35.0) pg MCHC (31.0-37.0) g/dL RDW (11.5-15.5) % Plt Count (150-450) k/uL Neutrophils % % Lymphocytes % % Monocytes % % Eosinophils % % Basophils % % Neutrophils # (1.3-7.7) k/uL Lymphocytes # (1.0-4.8) k/uL Monocytes # (0-1.0) k/uL Eosinophils # (0-0.7) k/uL Basophils # (0-0.2) k/uL PT (9.0-12.0) sec INR (<1.2) APTT (22.0-30.0) sec Sodium (137-145) mmol/L Potassium (3.5-5.1) mmol/L Chloride (98-107) mmol/L Carbon Dioxide (22-30) mmol/L Anion Gap mmol/L BUN (7-17) mg/dL Creatinine (0.52-1.04) mg/dL Est GFR (CKD-EPI)AfAm (>60 ml/min/1.73 sqM) Est GFR (CKD-EPI)NonAf (>60 ml/min/1.73 sqM) Glucose (74-99) mg/dL Plasma Lactic Acid Kenny 1.6 (0.7-2.0) mmol/L Calcium (8.4-10.2) mg/dL Magnesium (1.6-2.3) mg/dL Total Bilirubin (0.2-1.3) mg/dL AST (14-36) U/L ALT (4-34) U/L Alkaline Phosphatase (38-126) U/L Troponin I <0.012 (0.000-0.034) ng/mL Total Protein (6.3-8.2) g/dL Albumin (3.5-5.0) g/dL Disposition Clinical Impression: Syncope Disposition: HOME SELF-CARE Condition: Good Instructions (If sedation given, give patient instructions): Syncope (ED) Is patient prescribed a controlled substance at d/c from ED?: No Referrals: Erasto Bravo DO [Primary Care Provider] - 1-2 days Time of Disposition: 14:42
[2019-10-11 13:04] LABS: Basophils % (A) 0 %; Eosinophils # (A) 0.1 k/uL (0-0.7); Eosinophils % (A) 1 %; HCT 42.6 % (34.0-46.0); HGB 13.4 gm/dL (11.4-16.0); Lymphocytes # (A) 1.5 k/uL (1.0-4.8); Lymphocytes % (A) 11 %; MCH 28.5 pg (25.0-35.0); MCHC 31.5 g/dL (31.0-37.0); MCV 90.7 fL (80.0-100.0); Mean Platelet Volume 7.6; Monocytes # (A) 0.5 k/uL (0-1.0); Monocytes % (A) 3 %; Neutrophils # (A) 11.8 k/uL (1.3-7.7); Neutrophils % (A) 85 %; Platelet Count 354 k/uL (150-450); RBC 4.69 m/uL (3.80-5.40); RDW 13.6 % (11.5-15.5)
[2019-10-11 13:16] LABS: ALT <6 U/L (4-34); AST 33 U/L (14-36); African American GFR (CKD) >90 (>60 ml/min/1.73 sqM); Alkaline Phosphatase 82 U/L (38-126); Anion Gap 7 mmol/L; Blood Urea Nitrogen 13 mg/dL (7-17); Calcium 9.2 mg/dL (8.4-10.2); Carbon Dioxide 24 mmol/L (22-30); Chloride 108 mmol/L (98-107); Glucose 119 mg/dL (74-99); Non-African American GFR(CKD) >90 (>60 ml/min/1.73 sqM); Potassium 4.8 mmol/L (3.5-5.1); Sodium 139 mmol/L (137-145); Total Bilirubin 0.5 mg/dL (0.2-1.3)
[2019-10-11 13:48] LABS: Partial Thromboplastin Time 21.3 sec (22.0-30.0)
[2019-10-11 14:26] VITALS: RESP 18
[2019-10-11 15:14] VITALS: BP 149/84; PULSE 59; TEMP 97.8
== END 2019-10-11 15:54 | disposition home or self-care (01) ==
LOC: EC 12:23
DX: R55 Syncope and collapse (principal); D72.829 Elevated white blood cell count, unspecified; R00.1 Bradycardia, unspecified; L81.1 Chloasma; R53.1 Weakness; R11.0 Nausea; E11.9 Type 2 diabetes mellitus without complications; E07.9 Disorder of thyroid, unspecified; G20 Parkinson's disease; Z88.1 Allergy status to other antibiotic agents; Z88.8 Allergy status to other drugs, medicaments and biological substances; Z91.041 Radiographic dye allergy status; Z79.890 Hormone replacement therapy; Z79.899 Other long term (current) drug therapy; Z90.49 Acquired absence of other specified parts of digestive tract; Z98.84 Bariatric surgery status
CPT/HCPCS: 36415; 80053; 83605; 83735; 84484; 85025; 85610; 85730; 93005; 96360; 99284

== ENCOUNTER → 2019-10-17 | Outpatient (CLI) | payer OTHER, MEDICARE ==
[2019-10-17 14:15] VITALS: BP 170/85; PULSE 61; RESP 16; TEMP 98.1; BMI 31.4
--- NOTE | 2019-10-17 15:12 | P.PN ---
Subjective Progress Note Date: 10/17/19 DATE: 10/17/2019 CHIEF COMPLAINT: Panniculitis HISTORY OF PRESENT ILLNESS: The patient is a 59-year-old female status post gastric bypass March 2015. She is 4+years out. She comes in with stable weight loss. She is at goal weight. She is pending to see a portrait photographer. She reports functional deficit of her pannus. She has pulling sensation along her pannus. She also sees neurologist for functional deficit of her pannus. She is using Nystatin powder for her symptoms for over 1 year. Her ideal body weight is 154 pounds for her height is 5 foot 6 inches. Her highest weight was 310 pounds. Her initial BMI was 50.1. Today she comes in weighing 194 pounds unchanged, 1 month ago. Her body mass index reduced to 31.3. Lifetime weight loss is 116 pounds. Lifetime percent excess weight loss is 75% PHYSICAL EXAM: VITAL SIGNS: Height 5 foot 6 inches, weight 194 pounds. BMI 31.3 Vital Signs Temp 98.1 F 10/17/19 14:12 Pulse 61 10/17/19 14:12 Resp 16 10/17/19 14:12 BP 170/85 10/17/19 14:12 Pulse Ox GENERAL: Well-developed in no acute distress. HEENT: No scleral icterus. Extraocular movements grossly intact. Hears conversational speech. No nasal drainage. NECK: Supple without lymphadenopathy. CHEST: Nonlabored respirations with equal bilateral excursions. CARDIOVASCULAR: Regular rate and regular rhythm. Distal 2+ pulses. ABDOMEN: Obese, soft, nontender, nondistended. Pannus over 10 + pounds MUSCULOSKELETAL: No clubbing, cyanosis. NEURO: No focal or lateralizing signs. Cranial nerves 2 through 12 grossly within normal limits. PSYCH: Appropriate affect. Alert and oriented to person, place and time. SKIN: Good skin turgor. Well perfused. ASSESSMENT: 1. Morbid obesity due to excess calories. 2. Body mass index of 50.1 to 31.3 3. Osteoarthritis of the knees. 4. Osteoarthritis of the hips. 5. Osteoarthritis of the lower back. 6. Obstructive sleep apnea. 7. Hypertensive heart disease. 8. Hypothyroidism. 9. Family history of morbid obesity. 10. Family history of diabetes type 2. 11. Status post gastric bypass 12. Panniculitis 13. Secondary hyperparathyroidism 14. Hair loss 15. Vitamin A deficiency 16. Zinc deficiency PLAN: 1. She comes in with stable weight loss since August 2019. 2. Recommend re-evaluation of symptoms December 2019. 3. Also recommend follow-up with portrait photographer Objective - Vital Signs Vital signs: Vital Signs Temp 98.1 F 10/17/19 14:12 Pulse 61 10/17/19 14:12 Resp 16 10/17/19 14:12 BP 170/85 10/17/19 14:12 Pulse Ox Intake & Output 10/16/19 10/17/19 10/17/19 18:59 06:59 18:59 Weight 88.451 kg
== END | disposition home or self-care (01) ==
LOC: BARWHC3 13:49
PROVIDERS: ATTEND Surgery Plastic and Reconstructive Surgery
DX: E66.01 Morbid (severe) obesity due to excess calories (principal); Z68.31 Body mass index [BMI] 31.0-31.9, adult; M17.0 Bilateral primary osteoarthritis of knee; M16.0 Bilateral primary osteoarthritis of hip; M47.816 Spondylosis without myelopathy or radiculopathy, lumbar region; G47.33 Obstructive sleep apnea (adult) (pediatric); I11.9 Hypertensive heart disease without heart failure; E03.9 Hypothyroidism, unspecified; M79.3 Panniculitis, unspecified; N25.81 Secondary hyperparathyroidism of renal origin; L65.9 Nonscarring hair loss, unspecified; E50.9 Vitamin A deficiency, unspecified; E60 Dietary zinc deficiency; Z83.3 Family history of diabetes mellitus; Z83.49 Family history of other endocrine, nutritional and metabolic diseases; Z98.84 Bariatric surgery status
CPT/HCPCS: 99211

== ENCOUNTER → 2019-12-19 | Outpatient (CLI) | payer MEDICARE, OTHER ==
[2019-12-19 14:12] VITALS: RESP 16; TEMP 98.1; BMI 30.7
--- NOTE | 2019-12-19 14:24 | P.PN ---
Subjective Progress Note Date: 12/19/19 DATE: 12/19/2019 CHIEF COMPLAINT: Panniculitis HISTORY OF PRESENT ILLNESS: The patient is a 59-year-old female status post gastric bypass March 2015. She is almost 5 years out. Her weight has been stable within 5 pounds of her goal. She has long-standing panniculitis beyond 1+ years. She reports chronic infections along the pannus recalcitrant to treatment including with skin hygiene, medicated prescribed antifungal treatment and recurrent pain from the pannus. She is pending evaluation by the atm servicer. Additionally, she does report moderate to severe pain along her lower back from her pannus. She is planning to see her neurologist. Secondary to the Coronavirus pandemic, much of her appointments have been on hold. She also reports troubles from her breast from moderate deflation with weight loss including troubles with wearing garments. She is seeking panniculectomy for correction of her functional deficits. Her ideal body weight is 154 pounds for her height is 5 foot 6 inches. Her highest weight was 310 pounds. Her initial BMI was 50.1. Today she comes in weighing 190 pounds from 194 pounds, 2 months ago. Her body mass index reduced to 30.8. Lifetime weight loss is 120 pounds. Lifetime percent excess weight loss is 77%. PAST MEDICAL HISTORY: 1. Morbid obesity. 2. Body mass index of 50.1, initial 3. Osteoarthritis of the knees. 4. Osteoarthritis of the hips. 5. Osteoarthritis of the lower back. 6. Obstructive sleep apnea. 7. Hypertensive heart disease. 8. Depressive disorder 9. Kidney stones 10. Diabetes 2 to 11. Hypothyroidism 12. Parkinson's disease PAST SURGICAL HISTORY: 1. Gastric bypass 2. Knee arthroscopy 3. Varicose vein surgery 4. Cholecystectomy 5. Tonsillectomy 6. Heart catheterization HOME MEDICATIONS: ALLERGIES: Home Medications Medication Instructions Recorded Confirmed Type Levothyroxine Sodium [Synthroid] 50 mcg PO DAILY 12/24/13 05/18/18 History Primidone [Mysoline] 100 mg PO BID 03/23/14 05/18/18 History Ergocalciferol [Vitamin D2] 50,000 unit PO MO 09/10/15 05/18/18 History Carbidopa-Levodopa 25-100 mg 1 tab PO QID 03/18/17 05/18/18 History [Sinemet 25-100] Alive 1 tab PO DAILY 04/18/18 05/18/18 History Naproxen 500 mg PO BID PRN 04/18/18 05/18/18 History Vitamin A Acetate [Vitamin A] 10,000 unit SL DAILY 04/18/18 05/18/18 History rOPINIRole HCL [Requip] 2 mg PO TID 04/18/18 05/18/18 History Allergies Allergy/AdvReac Type Severity Reaction Status Date / Time metformin Allergy Rash/Hives Verified 04/19/18 07:02 metronidazole Allergy Unknown Verified 04/19/18 07:02 oxybutynin Allergy Wheezing Verified 04/19/18 07:02 SOCIAL HISTORY: No active tobacco use. FAMILY HISTORY: No family history of ulcerative colitis disease or Crohn's disease. Family history of morbid obesity. No lupus in the family. No reports of stomach or esophageal cancer. Family history of diabetes type 2. REVIEW OF ORGAN SYSTEMS: CONSTITUTIONAL: Her highest weight was 310 pounds. Her initial BMI was 50.1. Her ideal body weight is 154 pounds for height 5 foot 6 inches. HEENT: Denies any active troubles with vision or hearing. No troubles with swallowing. ENDOCRINE: Previous diabetes. Has hypothyroidism. CARDIOVASCULAR: No reports of palpitations or heart attacks or chest pain. RESPIRATORY: Has daytime somnolence. No asthma. GI: Denies any bright red blood per rectum. No diarrhea or constipation. MUSCULOSKELETAL: Has lower back pain and joint pain. Has osteoarthritis of the knees. NEURO: No headaches. No seizure disorders. PSYCH: No depression or suicidal ideation. RHEUMATOLOGIC: No lupus. No rheumatoid arthritis. HEMATOLOGIC: Denies any abnormal bleeding or bruising. No personal history of DVTs. SKIN: No skin cancer. Has panniculitis of the abdomen. Has hair loss. PHYSICAL EXAM: VITAL SIGNS: Height 5 foot 6 inches, weight 190 pounds. BMI 30.8. Blood pressure rechecked at least 3 times. Vital Signs Temp 98.1 F 12/19/19 14:09 Pulse 54 L 12/19/19 14:29 Resp 16 12/19/19 14:29 BP 188/76 12/19/19 14:29 Pulse Ox Intake & Output 12/19/19 12/19/19 12/20/19 06:59 18:59 06:59 Weight 86.455 kg GENERAL: Well-developed in no acute distress. HEENT: No scleral icterus. Extraocular movements grossly intact. Hears conversational speech. No nasal drainage. NECK: Supple without lymphadenopathy. CHEST: Nonlabored respirations with equal bilateral excursions. CARDIOVASCULAR: Regular rate and regular rhythm. Distal 2+ pulses. ABDOMEN: Obese, soft, nontender, nondistended. Pannus hangs over pubis, grade 3 panniculus. Hyperemia along the pannus. MUSCULOSKELETAL: No clubbing, cyanosis. NEURO: No focal or lateralizing signs. Cranial nerves 2 through 12 grossly within normal limits. PSYCH: Appropriate affect. Alert and oriented to person, place and time. SKIN: Good skin turgor. Well perfused. ASSESSMENT: 1. Morbid obesity due to excess calories. 2. Body mass index of 50.1 to 30.8 3. Osteoarthritis of the knees. 4. Osteoarthritis of the hips. 5. Osteoarthritis of the lower back. 6. Obstructive sleep apnea. 7. Hypertensive heart disease. 8. Hypothyroidism. 9. Family history of morbid obesity. 10. Family history of diabetes type 2. 11. Status post gastric bypass 12. Panniculitis 13. Secondary hyperparathyroidism 14. Hair loss 15. Vitamin A deficiency 16. Zinc deficiency 17. Hypertensive heart disease PLAN: 1. She is looking into skin removal surgery. Surgical management including resection of her pannus and umbilicus were described for panniculectomy. Again panniculectomy for medical necessity was described. Transposition of the umbilicus also reviewed however deemed cosmetic and not performed with a panniculectomy. 2. She was encouraged to see a board certified plastic surgeon as she is looking for management of her breast deformities and deflation as well. Additionally, distinction between abdominoplasty and panniculectomy reviewed. 3. She is pending to see the atm servicer. 4. Insurance details reviewed. 5. Recommend seeing neurologist. 6. Blood pressure re-checked where her blood pressure initially was 224/122. Upon recheck her blood pressure was still high 180s/90s. 7. Recommend cardiac risk assessment as she has multiple visits with hypertension 8. Benefits of panniculectomy including correction of functional deficits as well as correction of recurrent skin infections described. 9. Risks of surgery also reviewed including bleeding, hematoma, need for additional surgery, placement of drains beyond 4 weeks, prolonged recovery over 4 to 6 weeks reviewed as well. 10. Follow-up after her cardiac risk assessment, neurologist assessment and atm servicer assessment. 11. Continue nystatin powder in the interim. Objective - Vital Signs Vital signs: Vital Signs Temp 98.1 F 12/19/19 14:09 Pulse 59 L 12/19/19 14:09 Resp 16 12/19/19 14:09 BP 210/91 12/19/19 14:09 Pulse Ox Intake & Output 12/18/19 12/19/19 12/19/19 18:59 06:59 18:59 Weight 86.455 kg
[2019-12-19 14:30] VITALS: BP 188/76; PULSE 54
== END | disposition home or self-care (01) ==
LOC: BARWHC3 13:56
PROVIDERS: ATTEND Surgery Plastic and Reconstructive Surgery
DX: E66.01 Morbid (severe) obesity due to excess calories (principal); Z68.30 Body mass index [BMI] 30.0-30.9, adult; M17.9 Osteoarthritis of knee, unspecified; M16.9 Osteoarthritis of hip, unspecified; M47.816 Spondylosis without myelopathy or radiculopathy, lumbar region; G47.33 Obstructive sleep apnea (adult) (pediatric); I11.9 Hypertensive heart disease without heart failure; E03.9 Hypothyroidism, unspecified; M79.3 Panniculitis, unspecified; N25.81 Secondary hyperparathyroidism of renal origin; L65.9 Nonscarring hair loss, unspecified; E50.9 Vitamin A deficiency, unspecified; E60 Dietary zinc deficiency; Z88.8 Allergy status to other drugs, medicaments and biological substances; Z83.3 Family history of diabetes mellitus; Z98.84 Bariatric surgery status; Z90.49 Acquired absence of other specified parts of digestive tract; Z88.1 Allergy status to other antibiotic agents; Z79.1 Long term (current) use of non-steroidal anti-inflammatories (NSAID); Z79.899 Other long term (current) drug therapy
CPT/HCPCS: 99211

== ENCOUNTER → 2020-03-24 | Outpatient (CLI) | payer OTHER, MEDICARE ==
--- NOTE | 2020-03-26 08:23 | MM ---
Reason for exam: screening (asymptomatic). Last mammogram was performed 1 year and 1 month ago. History: Patient is postmenopausal. Physical Findings: A clinical breast exam by your physician is recommended on an annual basis and results should be correlated with mammographic findings. MG 3D Screening Mammo W/Cad Bilateral CC and MLO view(s) were taken. Prior study comparison: February 23, 2019, bilateral MG 3d screening mammo w/cad. January 10, 2018, bilateral MG 3d screening mammo w/cad. There are scattered fibroglandular densities. Finding: There are grouped/clustered calcifications in the lower inner quadrant of the right breast. New finding since February 23, 2019 and January 10, 2018. ASSESSMENT: Incomplete: need additional imaging evaluation, BI-RAD 0 RECOMMENDATION: Special view mammogram of the right breast. [facility] will attempt to contact patient to return for supplemental views.
== END | disposition home or self-care (01) ==
LOC: RADMAMWWP 16:15
PROVIDERS: ATTEND Family Medicine
DX: Z12.31 Encounter for screening mammogram for malignant neoplasm of breast (principal)
CPT/HCPCS: 77063; 77067

== ENCOUNTER → 2020-03-28 | Outpatient (CLI) | payer OTHER, MEDICARE ==
--- NOTE | 2020-03-28 12:55 | MM ---
Reason for exam: additional evaluation requested from abnormal screening. Last mammogram was performed less than 1 month ago. History: Patient is postmenopausal. Physical Findings: Nurse did not find any significant physical abnormalities on exam. MG 3D Work Up W/Cad RT CC with magnification, ML with magnification, and LM view(s) were taken of the right breast. Prior study comparison: March 24, 2020, bilateral MG 3d screening mammo w/cad. February 23, 2019, bilateral MG 3d screening mammo w/cad. The breast tissue is heterogeneously dense. This may lower the sensitivity of mammography. Finding: There are indeterminate calcifications in the lower inner quadrant of the right breast. These results were verbally communicated with the patient and result sheet given to the patient on 03/28/20. ASSESSMENT: Suspicious, BI-RAD 4 RECOMMENDATION: Surgical consultation and stereotactic core biopsy of the right breast. Called Dr. Bravo's office with mammographic findings and has scheduled an appointment for the patient for 04/25/20 at 12:[address] Che. Biopsy scheduled for 05/01/20 at 8:00. PRELIMINARY REPORT CALLED AND FAXED TO DR. CHE ON 03/28/20.
== END | disposition home or self-care (01) ==
LOC: RADMAMWWP 10:08
PROVIDERS: ATTEND Family Medicine
DX: R92.8 Other abnormal and inconclusive findings on diagnostic imaging of breast (principal)
CPT/HCPCS: 77061; 77065

== ENCOUNTER → 2020-04-25 | Outpatient (CLI) | payer OTHER, MEDICARE ==
[2020-04-25 08:43] VITALS: BP 169/85; PULSE 49; RESP 18; TEMP 98.2
--- NOTE | 2020-04-25 09:28 | P.GSHP ---
History of Present Illness H&P Date: 04/25/20 Chief Complaint: abnormal right breast mammogram Beatriz patient is a 59-year-old white female seen in consultation for Dr. Bravo who [place] [id number]. Groove calcifications were noted in the lower inner quadrant of the right breast and additional views were recommended. Additional right breast views were obtained on 820 120 this revealed the indeterminate calcifications in the lower inner quadrant of the right breast and stereotactic core biopsy was recommended. Nothing of concern was identified in the left breast. The patient is not complaining of any lumps masses or nodules in either breast. She is not complaining of any abnormal nipple discharge or breast pain. She has never had any breast biopsies or surgery on her breast. She is not complaining of any recent trauma or infection in the breast. Caffeine: 1 cup of coffee/day Nicotine: Negative Theophylline: occasional Family history: Negative Hormonal history: Menarche: 11 , breast fed:no inverted nipples, age at : 31 menopause: 52 BCP: none hormones: none Surgical history: Naldo-en-Y bariatric surgery, 2015 lost 120 pounds Venous ablation bilateral lower extremities Cholecystectomy Left knee/torn meniscus Tonsillectomy Medical history: Parkinson's disease Essential tremors Diet-controlled diabetes Hypertension Social History: smoke: none alcohol: occasional drugs: occasional - Constitutional Constitutional: Denies chills, Denies fever - EENT Eyes: denies blurred vision, denies pain Ears: deny: decreased hearing, tinnitus Ears, nose, mouth and throat: Reports headache - Breasts Breasts: bilateral: as per HPI - Cardiovascular Cardiovascular: Reports high blood pressure - Respiratory Respiratory: Denies cough, Denies 7 - Gastrointestinal Gastrointestinal: Denies abdominal pain, Denies diarrhea, Denies nausea, Denies vomiting - Genitourinary (Female) Genitourinary: Reports kidney stones - Menstruation Menstruation: Reports postmenopausal - Musculoskeletal Comment: bursitis in right knee Musculoskeletal: Reports as per HPI - Integumentary Comment: Intermittent rash/itching in her lower abdomen, and occasionally between the breast Integumentary: Reports pruritus, Reports rash - Neurological Comment: Diabetic neuropathy Neurological: Reports as per HPI, Reports numbness, Denies weakness - Psychiatric Psychiatric: Denies anxiety, Denies depression - Endocrine Comment: diet controlled diabetes - Hematologic/Lymphatic Comment: low dose aspirin - Allergic/Immunologic Allergic/Immunologic: Reports as per HPI, Reports seasonal allergies Past Medical History Past Medical History: Diabetes Mellitus, Hypertension, Osteoarthritis (OA), Sleep Apnea/CPAP/BIPAP, Thyroid Disorder, Vascular Disorder Additional Past Medical History / Comment(s): PARKINSON'S W/ ESSENTIAL Tremors; no cpap used, hx kidney stones, diet control diabetic History of Any Multi-Drug Resistant Organisms: None Reported Past Surgical History: Bariatric Surgery, Cholecystectomy, Heart Catheterization, Orthopedic Surgery, Tonsillectomy Additional Past Surgical History / Comment(s): 03/25/15 Laparoscopic naldo en y gastric bypass (Dr. Carrillo). knee arthroscopy(not sure what knee), steph leg surgery varicose veins, Past Anesthesia/Blood Transfusion Reactions: Previous Problems w/ Anesthesia, Motion Sickness Additional Past Anesthesia/Blood Transfusion Reaction / Comment(s): "took extra time to come out" Past Psychological History: Depression Additional Psychological History / Comment(s): Pt states she lives with her spouse. She states she is normally independent. She uses a cane prn. She drives. She has no home care. Smoking Status: Unknown if ever smoked Past Alcohol Use History: None Reported Past Drug Use History: None Reported - Past Family History Mother Family Medical History: No Reported History Medications and Allergies Home Medications Medication Instructions Recorded Confirmed Type EPINEPHrine [Epipen 2-Alexandre] 0.3 mg IM ONCE PRN #1 pkg 07/10/18 04/25/20 Rx Nystatin 100,000 Unit/gm Powd 1 applic TOPICAL BID #60 powder 08/22/19 04/25/20 Rx [Mycostatin Powder] amLODIPine [Norvasc] 5 mg PO DAILY 04/21/20 04/25/20 History Aspirin 1 tab PO DAILY 04/25/20 04/25/20 History Allergies Allergy/AdvReac Type Severity Reaction Status Date / Time Iodinated Contrast Media Allergy Anaphylaxis Verified 04/25/20 08:40 [Iodinated Contrast- Oral and IV Dye] metformin Allergy Rash/Hives Verified 04/25/20 08:40 metronidazole Allergy Rash/Hives Verified 04/25/20 08:40 oxybutynin Allergy Wheezing Verified 04/25/20 08:40 Surgical - Exam Vital Signs Temp Pulse Resp BP Pulse Ox 98.2 F 49 L 18 169/85 100 04/25/20 08:41 04/25/20 08:41 04/25/20 08:41 04/25/20 08:41 04/25/20 08:41 BMI 30.7 - General well developed, no distress - Eyes normal ocular movement - ENT no hearing loss, no congestion - Neck trachea midline - Cardiovascular Rhythm: regular Heart Sounds: normal: S1, S2 - Abdomen Abdomen: soft, non tender, no guarding, no rigid, no rebound - Integumentary normal turgor - Neurologic no disoriented, no combative - Musculoskeletal normal gait, normal posture - Psychiatric oriented to time, oriented to person, oriented to place, speech is normal, memory intact breast exam: XL sports bra inspection: grade 3 ptosis bilateral, incision of nipples bilateral Palpation: Right breast: Multi-positional exam no dominant masses or nodules of concern, fibrocystic changes Right axilla: No adenopathy of concern Left breast: Multiple positional exam fibrocystic changes no dominant masses or nodules of concern Left axilla: No adenopathy of concern Results Mammogram results reviewed Assessment and Plan Assessment: Impression: 1. Mammographic abnormality right breast 2. Bilateral chronic inverted nipples 3. Fibrocystic changes 4. Bilateral grade 3 ptosis 5. Diabetes 6. Status post Naldo-en-Y bariatric surgery 7. Status post venous ablation prior history of venous stasis ulcers 8. Parkinson's disease 9. Essential tremor 10. Hypertension Plan: 1. Stereotactic core biopsy right breast 2. Medical management of medical conditions Risks and benefits of procedure discussed with the patient. She understands and wishes to proceed alternatives were discussed such as watchful waiting open biopsy but were not recommended. Cc: Dr. Bravo encounter 30 minutes, > 50% of time in planning and counselling
== END | disposition home or self-care (01) ==
LOC: WWCWWP 08:29
PROVIDERS: ATTEND Surgery
DX: Z53.9 Procedure and treatment not carried out, unspecified reason (principal)

== ENCOUNTER → 2020-05-01 | Day surgery (SDC) | payer OTHER, MEDICARE ==
[2020-05-01 07:20] VITALS: PULSE 51; RESP 16; TEMP 98.4
--- NOTE | 2020-05-01 08:55 | P.PCN ---
Date of Procedure: 05/01/20 Preoperative Diagnosis: Abnormal mammogram right breast Postoperative Diagnosis: Same Procedure(s) Performed: Right breast stereotactic core biopsy Anesthesia: local Surgeon: Debbie Che Estimated Blood Loss (ml): 1 Pathology: other (Breast tissue) Condition: stable Disposition: same day Indications for Procedure: Abnormal microcalcifications right breast Operative Findings: Microcalcifications of concern noted and biopsy specimen Description of Procedure: Beatriz is a 59-year-old white female who had a mammogram performed on 820 120 which revealed indeterminate calcifications in the lower inner quadrant of the right breast. It was recommended she undergo stereotactic core biopsy of these calcifications. Risk and benefits were discussed with the patient and she wished to proceed. Alternatives such as watchful waiting and biopsy were not recommended. The patient was taken to the stereotactic core biopsy from. She was positioned prone on the stereotactic table. A medical secretary teacher film was obtained. The calcifications of concern were identified. The approach was a CC from below approach. Following this the area of concern was targeted. The breast was prepped using chloroquine. 20 mL of 1% lidocaine were used to anesthetize the area of concern. A 9-gauge vacuum-assisted core rotating biopsy needle was driven to the correct coordinates. The needle was fired. Post fire films were obtained. The needle was noted to be in the correct location. 13 samples were obtained. Radiograph of the samples revealed the calcifications of concern had been adequately sampled. A secure marked top Marker was placed. The patient tolerated the procedure in stable condition. Specimen was sent to pathology.
--- NOTE | 2020-05-01 09:04 | MM ---
EXAMINATION TYPE: MG stereo VAD BX RT DATE OF EXAM: 05/01/2020 COMPARISON: Prior mammogram March 28, 2020 and older mammograms. CLINICAL HISTORY: Abnormal mammogram TECHNIQUE: Stereotactic guided core biopsy of right breast. FINDINGS: The procedure of stereotactic guided core biopsy was explained to the patient. Benefits, alternatives, and risks were discussed. An informed consent was then obtained. The shortness pathway for biopsy was chosen. Shortness pathway was inferior approach. I performed the localization, then surgeon, Dr. Butch Guerrero performed the remainder of the procedure. A vacuum assisted biopsy gun was used to obtain multiple core samples. The patient tolerated the procedure well without any immediate complication. The patient was kept in the radiology department for short stay after the procedure and then discharged home in stable condition. Targeted calcifications are identified in specimen mammogram. Post biopsy mammogram shows the clip to appear in satisfactory position relative to the targeted area of concern on the preprocedure images. IMPRESSION: SUCCESSFUL, UNCOMPLICATED STEREOTACTIC GUIDED CORE BIOPSY OF AREA OF CONCERN IN THE RIGHT BREAST, FULL PATHOLOGY RESULTS TO FOLLOW. Low index of suspicion noted at time of procedure. Calcifications have fairly benign morphology. Pathology Results: Benign RIGHT BREAST, STEREOTACTIC CORE BIOPSY: Fibrocystic changes including columnar cell change with calcifications, cysts and fibrosis. Recommendation Follow up mammogram of the right breast in 6 months. MTDD
[2020-05-01 09:09] VITALS: BP 167/87
== END ==
LOC: RADMAMWWP 06:50
PROVIDERS: ATTEND Surgery
DX: N60.31 Fibrosclerosis of right breast (principal)
CPT/HCPCS: 88305; 19081; A4648; J2001

== ENCOUNTER → 2020-05-08 | Outpatient (CLI) | payer OTHER, MEDICARE ==
[2020-05-08 13:07] VITALS: BP 169/81; PULSE 57; RESP 18; TEMP 98.1
--- NOTE | 2020-05-08 13:13 | P.PN ---
Subjective Progress Note Date: 05/08/20 Principal diagnosis: fibrocystis changed stero biopsy of the right breast Beatriz patient is a 59-year-old white female seen in consultation for Dr. Bravo who underwent a screening mammogram [place] [id number]. Groove calcifications were noted in the lower inner quadrant of the right breast and additional views were recommended. Additional right breast views were obtained on 820 120 this revealed the indeterminate calcifications in the lower inner quadrant of the right breast and stereotactic core biopsy was recommended. Nothing of concern was identified in the left breast. The patient is not complaining of any lumps masses or nodules in either breast. She is not complaining of any abnormal nipple discharge or breast pain. She has never had any breast biopsies or surgery on her breast. She is not complaining of any recent trauma or infection in the breast. She underwent a right breast stereotactic core biopsy on [id number]. This revealed fibrocystic changes including columnar cell change with calcifications, cyst, and fibrosis. Howie has no compaints related to the procedure. Objective - Vital Signs Vital signs: Intake & Output 05/07/20 05/08/20 05/08/20 18:59 06:59 18:59 Weight 81.647 kg - Exam BMI 29.1 - Constitutional General appearance: Present: average body habitus - EENT Eyes: Present: EOMI ENT: Present: hearing grossly normal - Respiratory Respiratory: bilateral: CTA - Cardiovascular Rhythm: regular Heart sounds: normal: S1, S2 - Integumentary Integumentary Comment(s): Mild ecchymosis near the nipple areolar region No evidence of any infection No evidence of any hematoma - Musculoskeletal Musculoskeletal: Present: gait normal - Psychiatric Psychiatric: Present: A&O x's 3, appropriate affect, intact judgment & insight Assessment and Plan Assessment: Impression: 1. Patient status [place] [id number] pathology benign/concordant with radiographic findings Plan: 1. Repeat right breast mammogram in 6 months with physician exam at that time 2. If patient has any questions or concerns prior to that time she should call Cc: Dr. Bravo encounter 10 minutes, > 50% of time in planning and counselling
== END | disposition home or self-care (01) ==
LOC: WWCWWP 12:53
PROVIDERS: ATTEND Surgery
DX: Z53.9 Procedure and treatment not carried out, unspecified reason (principal)

== ENCOUNTER → 2020-09-10 | Outpatient (CLI) | payer OTHER, MEDICARE ==
[2020-09-10 13:45] VITALS: BP 164/85; PULSE 62; RESP 18; TEMP 97.7; BMI 30.8
--- NOTE | 2020-09-10 14:12 | P.PN ---
Subjective Progress Note Date: 09/10/20 DATE: 09/10/2020 CHIEF COMPLAINT: Panniculitis HISTORY OF PRESENT ILLNESS: The patient is a 60-year-old female status post gastric bypass March 2015. She is over 5 years out. She has severe panniculitis for over 2 years. She has persistent impairment of her activities of daily living including hygiene, walking as result of the size of her pannus and pulling along her lower back. She reports chronic skin infections. She has tried prescription therapy including topical treatments. She is seeking panniculectomy for correction of her functional deficits. She has lost over 100 pounds with sustained and stable weight loss over 1 year. She presents in consultation for panniculitis. Her ideal body weight is 154 pounds for her height is 5 foot 6 inches. Her highest weight is 310 pounds. Her initial BMI was 50.1. Today she comes in weighing 191 pounds unchanged, 6 months ago. Her body mass index reduced to 30.9. Lifetime weight loss is 119 pounds. Lifetime percent excess weight loss is 77%. PAST MEDICAL HISTORY: 1. Morbid obesity due to excess calories 2. Body mass index of 50.1, initial 3. Osteoarthritis of the knees. 4. Osteoarthritis of the hips. 5. Osteoarthritis of the lower back. 6. Obstructive sleep apnea. 7. Hypertensive heart disease. 8. Depressive disorder 9. Kidney stones 10. Diabetes mellitus type 2 11. Hypothyroidism 12. Parkinson's disease 13. Panniculitis PAST SURGICAL HISTORY: 1. Gastric bypass 2. Knee arthroscopy 3. Varicose vein surgery 4. Cholecystectomy 5. Tonsillectomy 6. Heart catheterization HOME MEDICATIONS: Home Medications Medication Instructions Recorded Confirmed amLODIPine [Norvasc] 5 mg PO DAILY 04/21/20 09/11/20 Aspirin 1 tab PO DAILY 04/25/20 09/11/20 amantadine HCL [Amantadine] 100 mg PO DIRECTED 09/11/20 09/11/20 rOPINIRole HCL [Requip] 1 mg PO TID 09/11/20 09/11/20 ALLERGIES: Allergies Allergy/AdvReac Type Severity Reaction Status Date / Time Iodinated Contrast Media Allergy Anaphylaxis Verified 09/11/20 11:57 [Iodinated Contrast- Oral and IV Dye] metformin Allergy Rash/Hives Verified 09/11/20 11:57 metronidazole Allergy Rash/Hives Verified 09/11/20 11:57 oxybutynin Allergy Wheezing Verified 09/11/20 11:57 SOCIAL HISTORY: No active tobacco use. FAMILY HISTORY: No family history of ulcerative colitis disease or Crohn's disease. Family history of morbid obesity. No lupus in the family. No reports of stomach or esophageal cancer. Family history of diabetes type 2. REVIEW OF ORGAN SYSTEMS: CONSTITUTIONAL: Her highest weight was 310 pounds. Her initial BMI was 50.1. Her ideal body weight is 154 pounds for height 5 foot 6 inches. HEENT: Denies any active troubles with vision or hearing. No troubles with swallowing. ENDOCRINE: Previous diabetes. Has hypothyroidism. CARDIOVASCULAR: No reports of palpitations or heart attacks or chest pain. RESPIRATORY: Has daytime somnolence. No asthma. GI: Denies any bright red blood per rectum. No diarrhea or constipation. MUSCULOSKELETAL: Has lower back pain and joint pain. Has osteoarthritis of the knees. NEURO: No headaches. No seizure disorders. PSYCH: No depression or suicidal ideation. RHEUMATOLOGIC: No lupus. No rheumatoid arthritis. HEMATOLOGIC: Denies any abnormal bleeding or bruising. No personal history of DVTs. SKIN: No skin cancer. Has panniculitis of the abdomen. PHYSICAL EXAM: VITAL SIGNS: Height 5 foot 6 inches, weight 191 pounds. BMI 30.8. Vital Signs Temp 97.7 F 09/10/20 13:42 Pulse 62 09/10/20 13:42 Resp 18 09/10/20 13:42 BP 164/85 09/10/20 13:42 Pulse Ox GENERAL: Well-developed in no acute distress. HEENT: No scleral icterus. Extraocular movements grossly intact. Hears conversational speech. No nasal drainage. NECK: Supple without lymphadenopathy. CHEST: Nonlabored respirations with equal bilateral excursions. CARDIOVASCULAR: Regular rate and regular rhythm. Distal 2+ pulses. ABDOMEN: Obese, soft, nontender, nondistended. Panniculitis with grade 3 panniculosis. Weight of pannus over 10 pounds. MUSCULOSKELETAL: No clubbing, cyanosis. NEURO: No focal or lateralizing signs. Cranial nerves 2 through 12 grossly within normal limits. PSYCH: Appropriate affect. Alert and oriented to person, place and time. SKIN: Good skin turgor. Well perfused. ASSESSMENT: 1. Morbid obesity due to excess calories. 2. Body mass index of 50.1 to 30.8 3. Osteoarthritis of the knees. 4. Osteoarthritis of the hips. 5. Osteoarthritis of the lower back. 6. Obstructive sleep apnea. 7. Hypertensive heart disease. 8. Hypothyroidism. 9. Family history of morbid obesity. 10. Family history of diabetes type 2. 11. Status post gastric bypass 12. Panniculitis 13. Secondary hyperparathyroidism 14. Hair loss 15. Vitamin A deficiency 16. Zinc deficiency 17. Hypertensive heart disease 18. Panniculus grade 3 PLAN: 1. Panniculectomy should correct functional impairment from her panniculus and recurrent infection from panniculitis. 2. Anticipated resection over 10+ pounds described for which she is elevated risks for bleeding and complications. 3. Recommend 2 week protein diet for optimal recovery 4. Risks of bleeding, needs for drains, cosmetic deformity, flap failure, infection, need for further surgery were described. She is elevated risk for perioperative complications with hypertensive heart disease. 5. DVT prophylaxis. 6 Antibiotic prophylaxis 7. Length of recovery of 6-8 weeks described including placement of drains of more than 2 weeks reviewed. 8. Recovery and with non-narcotic pain management described. Objective - Vital Signs Vital signs: Vital Signs Temp 97.7 F 09/10/20 13:42 Pulse 62 09/10/20 13:42 Resp 18 09/10/20 13:42 BP 164/85 09/10/20 13:42 Pulse Ox Intake & Output 09/09/20 09/10/20 09/10/20 18:59 06:59 18:59 Weight 86.636 kg
== END | disposition home or self-care (01) ==
LOC: BARWHC3 12:52
PROVIDERS: ATTEND Surgery Plastic and Reconstructive Surgery
DX: E66.01 Morbid (severe) obesity due to excess calories (principal); M17.0 Bilateral primary osteoarthritis of knee; M16.0 Bilateral primary osteoarthritis of hip; M47.9 Spondylosis, unspecified; G47.33 Obstructive sleep apnea (adult) (pediatric); I11.9 Hypertensive heart disease without heart failure; E03.9 Hypothyroidism, unspecified; M79.3 Panniculitis, unspecified; N25.81 Secondary hyperparathyroidism of renal origin; E50.9 Vitamin A deficiency, unspecified; E60 Dietary zinc deficiency; Z83.3 Family history of diabetes mellitus; Z68.30 Body mass index [BMI] 30.0-30.9, adult; Z98.84 Bariatric surgery status; Z91.041 Radiographic dye allergy status; Z88.8 Allergy status to other drugs, medicaments and biological substances; Z79.899 Other long term (current) drug therapy; Z79.82 Long term (current) use of aspirin
CPT/HCPCS: 99211

== ENCOUNTER → 2020-09-19 | Outpatient (CLI) | payer OTHER, MEDICARE ==
[2020-09-19 12:48] LABS: Basophils # (A) 0.1 k/uL (0-0.2); Basophils % (A) 1 %; Eosinophils # (A) 0.1 k/uL (0-0.7); Eosinophils % (A) 2 %; HCT 40.3 % (34.0-46.0); Lymphocytes # (A) 2.4 k/uL (1.0-4.8); Lymphocytes % (A) 35 %; MCH 27.6 pg (25.0-35.0); MCHC 32.2 g/dL (31.0-37.0); MCV 85.6 fL (80.0-100.0); Mean Platelet Volume 6.7; Monocytes # (A) 0.3 k/uL (0-1.0); Monocytes % (A) 5 %; Neutrophils # (A) 3.7 k/uL (1.3-7.7); Neutrophils % (A) 55 %; Platelet Count 373 k/uL (150-450); RDW 15.2 % (11.5-15.5); WBC 6.7 k/uL (3.8-10.6)
[2020-09-19 13:02] LABS: ALT 14 U/L (4-34); AST 26 U/L (14-36); African American GFR (CKD) >90 (>60 ml/min/1.73 sqM); Albumin 4.3 g/dL (3.5-5.0); Alkaline Phosphatase 83 U/L (38-126); Anion Gap 9 mmol/L; Blood Urea Nitrogen 16 mg/dL (7-17); Calcium 9.4 mg/dL (8.4-10.2); Carbon Dioxide 23 mmol/L (22-30); Chloride 105 mmol/L (98-107); Glucose 93 mg/dL (74-99); Non-African American GFR(CKD) >90 (>60 ml/min/1.73 sqM); Potassium 4.5 mmol/L (3.5-5.1); Sodium 137 mmol/L (137-145); Total Bilirubin 0.4 mg/dL (0.2-1.3); Total Protein 7.5 g/dL (6.3-8.2)
== END | disposition home or self-care (01) ==
LOC: LABPAT 11:19
PROVIDERS: ATTEND Surgery Plastic and Reconstructive Surgery
DX: Z01.818 Encounter for other preprocedural examination (principal)
CPT/HCPCS: 80053; 85025

== ENCOUNTER → 2020-09-19 | Outpatient (CLI) | payer OTHER, MEDICARE | END | disposition home or self-care (01) | LOC: LABWHC1 11:24 | PROVIDERS: ATTEND Nurse Practitioner Acute Care | DX: E55.9 Vitamin D deficiency, unspecified (principal) | CPT/HCPCS: 36415; 82306 ==

== ENCOUNTER 2020-09-29 11:52 | Inpatient (IN) | payer OTHER, MEDICARE ==
[2020-09-23 13:54] VITALS: BMI 30.7
--- NOTE | 2020-09-29 06:35 | P.GSHP ---
History of Present Illness H&P Date: 09/29/20 CHIEF COMPLAINT: Panniculitis HISTORY OF PRESENT ILLNESS: The patient is a 60-year-old female status post gastric bypass March 2015. She is over 5 years out. She has severe panniculitis for over 2 years. She has persistent impairment of her activities of daily living including hygiene, walking as result of the size of her pannus and pulling along her lower back. She reports chronic skin infections. She has tried prescription therapy including topical treatments. She is seeking panniculectomy for correction of her functional deficits. She has lost over 100 pounds with sustained and stable weight loss over 1 year. She presents in consultation for panniculitis. Her ideal body weight is 154 pounds for her height is 5 foot 6 inches. Her highest weight is 310 pounds. Her initial BMI was 50.1. Today she comes in weighing 191 pounds unchanged, 6 months ago. Her body mass index reduced to 30.9. Lifetime weight loss is 119 pounds. Lifetime percent excess weight loss is 77%. PAST MEDICAL HISTORY: 1. Morbid obesity due to excess calories 2. Body mass index of 50.1, initial 3. Osteoarthritis of the knees. 4. Osteoarthritis of the hips. 5. Osteoarthritis of the lower back. 6. Obstructive sleep apnea. 7. Hypertensive heart disease. 8. Depressive disorder 9. Kidney stones 10. Diabetes mellitus type 2 11. Hypothyroidism 12. Parkinson's disease 13. Panniculitis PAST SURGICAL HISTORY: 1. Gastric bypass 2. Knee arthroscopy 3. Varicose vein surgery 4. Cholecystectomy 5. Tonsillectomy 6. Heart catheterization HOME MEDICATIONS: Home Medications Medication Instructions Recorded Confirmed amLODIPine [Norvasc] 5 mg PO DAILY 04/21/20 09/11/20 Aspirin 1 tab PO DAILY 04/25/20 09/11/20 amantadine HCL [Amantadine] 100 mg PO DIRECTED 09/11/20 09/11/20 rOPINIRole HCL [Requip] 1 mg PO TID 09/11/20 09/11/20 ALLERGIES: Allergies Allergy/AdvReac Type Severity Reaction Status Date / Time Iodinated Contrast Media Allergy Anaphylaxis Verified 09/11/20 11:57 [Iodinated Contrast- Oral and IV Dye] metformin Allergy Rash/Hives Verified 09/11/20 11:57 metronidazole Allergy Rash/Hives Verified 09/11/20 11:57 oxybutynin Allergy Wheezing Verified 09/11/20 11:57 SOCIAL HISTORY: No active tobacco use. FAMILY HISTORY: No family history of ulcerative colitis disease or Crohn's disease. Family history of morbid obesity. No lupus in the family. No reports of stomach or esophageal cancer. Family history of diabetes type 2. REVIEW OF ORGAN SYSTEMS: CONSTITUTIONAL: Her highest weight was 310 pounds. Her initial BMI was 50.1. Her ideal body weight is 154 pounds for height 5 foot 6 inches. HEENT: Denies any active troubles with vision or hearing. No troubles with swallowing. ENDOCRINE: Previous diabetes. Has hypothyroidism. CARDIOVASCULAR: No reports of palpitations or heart attacks or chest pain. RESPIRATORY: Has daytime somnolence. No asthma. GI: Denies any bright red blood per rectum. No diarrhea or constipation. MUSCULOSKELETAL: Has lower back pain and joint pain. Has osteoarthritis of the knees. NEURO: No headaches. No seizure disorders. PSYCH: No depression or suicidal ideation. RHEUMATOLOGIC: No lupus. No rheumatoid arthritis. HEMATOLOGIC: Denies any abnormal bleeding or bruising. No personal history of DVTs. SKIN: No skin cancer. Has panniculitis of the abdomen. PHYSICAL EXAM: VITAL SIGNS: Height 5 foot 6 inches, weight 191 pounds. BMI 30.8. GENERAL: Well-developed in no acute distress. HEENT: No scleral icterus. Extraocular movements grossly intact. Hears conversational speech. No nasal drainage. NECK: Supple without lymphadenopathy. CHEST: Nonlabored respirations with equal bilateral excursions. CARDIOVASCULAR: Regular rate and regular rhythm. Distal 2+ pulses. ABDOMEN: Obese, soft, nontender, nondistended. Panniculitis with grade 3 panniculosis. Weight of pannus over 10 pounds. MUSCULOSKELETAL: No clubbing, cyanosis. NEURO: No focal or lateralizing signs. Cranial nerves 2 through 12 grossly within normal limits. PSYCH: Appropriate affect. Alert and oriented to person, place and time. SKIN: Good skin turgor. Well perfused. ASSESSMENT: 1. Morbid obesity due to excess calories. 2. Body mass index of 50.1 to 30.8 3. Osteoarthritis of the knees. 4. Osteoarthritis of the hips. 5. Osteoarthritis of the lower back. 6. Obstructive sleep apnea. 7. Hypertensive heart disease. 8. Hypothyroidism. 9. Family history of morbid obesity. 10. Family history of diabetes type 2. 11. Status post gastric bypass 12. Panniculitis 13. Secondary hyperparathyroidism 14. Hair loss 15. Vitamin A deficiency 16. Zinc deficiency 17. Hypertensive heart disease 18. Panniculus grade 3 PLAN: 1. Panniculectomy should correct functional impairment from her panniculus and recurrent infection from panniculitis. 2. Anticipated resection over 10+ pounds described for which she is elevated risks for bleeding and complications. 3. Recommend 2 week protein diet for optimal recovery 4. Risks of bleeding, needs for drains, cosmetic deformity, flap failure, infection, need for further surgery were described. She is elevated risk for perioperative complications with hypertensive heart disease. 5. DVT prophylaxis. 6 Antibiotic prophylaxis 7. Length of recovery of 6-8 weeks described including placement of drains of more than 2 weeks reviewed. 8. Recovery and with non-narcotic pain management described. Past Medical History Past Medical History: Diabetes Mellitus, Hypertension, Osteoarthritis (OA), Sleep Apnea/CPAP/BIPAP, Thyroid Disorder, Vascular Disorder Additional Past Medical History / Comment(s): PARKINSON'S W/ ESSENTIAL Tremors; no cpap used, hx kidney stones, diet control diabetic History of Any Multi-Drug Resistant Organisms: None Reported Past Surgical History: Bariatric Surgery, Cholecystectomy, Heart Catheterization, Orthopedic Surgery, Tonsillectomy Additional Past Surgical History / Comment(s): 03/25/15 Laparoscopic naldo en y gastric bypass (Dr. Carrillo). knee arthroscopy(not sure what knee), steph leg surgery varicose veins, Past Anesthesia/Blood Transfusion Reactions: Previous Problems w/ Anesthesia Additional Past Anesthesia/Blood Transfusion Reaction / Comment(s): "had hard time bringing me out" Smoking Status: Never smoker - Past Family History Father Additional Family Medical History / Comment(s): parkinsons Mother Family Medical History: No Reported History Medications and Allergies Home Medications Medication Instructions Recorded Confirmed Type amLODIPine [Norvasc] 5 mg PO DAILY 04/21/20 09/23/20 History Aspirin 1 tab PO DAILY 04/25/20 09/23/20 History amantadine HCL [Amantadine] 100 mg PO BID 09/11/20 09/23/20 History rOPINIRole HCL [Requip] 1 mg PO TID 09/11/20 09/23/20 History Allergies Allergy/AdvReac Type Severity Reaction Status Date / Time Iodinated Contrast Media Allergy Anaphylaxis Verified 09/23/20 13:37 [Iodinated Contrast- Oral and IV Dye] metformin Allergy Rash/Hives Verified 09/23/20 13:37 metronidazole Allergy Rash/Hives Verified 09/23/20 13:37 oxybutynin Allergy Wheezing Verified 09/23/20 13:37
[~2020-09-29 11:52] MED LIST changes: +ACETAMINOPHEN TAB 500 MG TAB PO STA; +DEXAMETHASONE SOD PHOSPHATE 4 MG/ML 1 ML VIAL IV ONE; +GABAPENTIN 300 MG CAP PO STA; +HYDROmorphone 0.5 MG/0.5 ML SYRINGE IVP PRN; -LACTATED RINGERS 1,000 ML IV SCH; +LIDOCAINE 1% (10MG/ML) FOR IV START INTRADERMA PRN; +MELOXICAM 7.5 MG TAB PO PRN; +ONDANSETRON 4 MG/2 ML VIAL IVP ONE; +SCOPOLAMINE 1.5MG/72HR PATCH TRANSDERM ONE; +SCOPOLAMINE 1.5MG/72HR PATCH TRANSDERM STA; +TAMSULOSIN 0.4 MG CAP.ER.24H PO STA
[2020-09-29] MEDS: LACTATED RINGERS 1,000 ML IV SCH (12:41)
[2020-09-29] MEDS ORDERED: MIDAZOLAM 2 MG/2 ML VIAL IVP ONE (13:22)
--- NOTE | 2020-09-29 13:42 | P.ANPRN ---
Procedure Note - Anesthesia - Nerve Block Performed Bilateral Erector Spinae Single Time Out Performed: Yes Date of Procedure: 09/29/20 Procedure Start Time: Procedure Stop Time: Location of Patient: PreOp Indication: Acute Post-Operative Pain, Analgesia, Requested by Surgeon Sedation Type: Sedate with meaningful contact maintained Preparation: Sterile Prep Position: Sitting Catheter: None Needle Types: Pajunk Needle Gauge: 21 Ultrasound used to visualize needle placement: Yes Ultrasound used to observe medication spread: Yes Injectate: 0.5% Ropivacaine (see comment for volume) Blood Aspirated: No Pain Paresthesia on Injection Noted: No Resistance on Injection: Normal Image Stored and Saved: Yes Events: Uneventful and Well Tolerated
[2020-09-29 13:51] LABS: Glucose,Whole Blood 97 mg/dL (75-99)
[2020-09-29] MEDS ORDERED: HEPARIN SODIUM,PORCINE 5,000 UNIT/ML 1 ML VIAL ONE (16:03)
[2020-09-29] MEDS ORDERED: HEPARIN SODIUM,PORCINE 5,000 UNIT/ML 1 ML VIAL SQ ONE (16:06)
[2020-09-29] MEDS ORDERED: LIDOCAINE 1% INJ 10MG/ML (20 ML MDV) ONE (16:10)
[2020-09-29] MEDS ORDERED: fentaNYL (PF) 50 MCG/ML 2 ML AMP ONE (16:10)
[2020-09-29] MEDS ORDERED: ePHEDrine SULFATE/0.9% NACL/PF 50 MG/5 ML SYRINGE IV ONE (16:10)
[2020-09-29] MEDS ORDERED: MIDAZOLAM 2 MG/2 ML VIAL ONE (16:10)
[2020-09-29] MEDS ORDERED: PROPOFOL 10 MG/ML 20 ML VIAL IV ONE (16:10)
[2020-09-29] MEDS ORDERED: ROPIVACAINE 5 MG/ML 30 ML VIAL ONE (16:10)
[2020-09-29] MEDS ORDERED: LACTATED RINGERS 1,000 ML IV ONE ×3 (17:36→18:42)
[2020-09-29] MEDS ORDERED: SIMETHICONE 40 MG/0.6 ML DROPS 2,000 MG/30 ML BOTTLE PO PRN (19:30)
[2020-09-29] MEDS ORDERED: HYDROmorphone 1 MG/ML 1 ML SYRINGE IVP PRN (19:30)
[2020-09-29] MEDS ORDERED: NALOXONE 0.4 MG/ML 1 ML VIAL IV PRN (19:30)
[2020-09-29] MEDS ORDERED: ONDANSETRON 4 MG/2 ML VIAL IVP PRN (19:30)
[2020-09-29] MEDS: ALBUTEROL NEBULIZED 2.5 MG/3 ML INHALATION SCH (20:38)
[2020-09-29] MEDS: 0.9% NACL WITH KCL 20 MEQ/L 1,000 ML IV SCH (23:04)
[2020-09-29] MEDS: KETOROLAC 15 MG/ML 1 ML VIAL IVP SCH (23:10)
[2020-09-29] MEDS: ACETAMINOPHEN TAB 500 MG TAB PO SCH (23:11)
--- NOTE | 2020-09-30 05:27 | P.OP ---
Date of Procedure: 09/29/20 Description of Procedure: SURGEON: RAUL FLORES MD PREOPERATIVE DIAGNOSES: 1. Panniculitis with central adiposity 2. Morbid obesity due to excess calories with body mass index of 50.1 to 30.8 3. Osteoarthritis of the knees. 4. Osteoarthritis of the hips. 5. Osteoarthritis of the lower back. 6. Obstructive sleep apnea. 7. Hypertensive heart disease. 8. Hypothyroidism. 9. Family history of morbid obesity. 10. Family history of diabetes type 2. 11. Status post gastric bypass 12. Hypertensive heart disease 13. Secondary hyperparathyroidism 15. Vitamin A deficiency 16. Zinc deficiency 17. Vitamin D deficiency 18. Status post massive weight loss 119 pounds POSTOPERATIVE DIAGNOSES: 1. Panniculitis with central adiposity 2. 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 Osteoarthritis of the knees. 4. Osteoarthritis of the hips. 5. Osteoarthritis of the lower back. 6. Obstructive sleep apnea. 7. Hypertensive heart disease. 8. Hypothyroidism. 9. Family history of morbid obesity. 10. Family history of diabetes type 2. 11. Status post gastric bypass 12. Hypertensive heart disease 13. Secondary hyperparathyroidism 15. Vitamin A deficiency 16. Zinc deficiency 17. Vitamin D deficiency 18. Status post massive weight loss 119 pounds 19. Morbid obesity due to excess calories with body mass index of 50.1 to 30.8 OPERATION: 1. Panniculectomy, 8.92 pounds. 2. Abdominal wall reconstruction with myocutaneous bilateral flap advancement, 28 x 13 cm for ventral hernia repair without mesh. ANESTHESIA: General ESTIMATED BLOOD LOSS: 300 mL SPECIMENS REMOVED: Pannus 8.92 pounds. COMPLICATIONS: None. CONDITION: Stable. DRAINS: Two #19 Kwame drains below abdominal flap extending through the pubis. OPERATIVE FINDINGS: 1. Pannus weighing 8.92 pounds, excised. 2. Abdominal ventral hernia of 28 x 12 cm along the midline INDICATIONS: The patient is a 60-year-old female status post gastric bypass March 2015. She is over 5 years out. She has severe panniculitis for over 2 years. She has persistent impairment of her activities of daily living including hygiene, walking as result of the size of her pannus and pulling along her lower back. She reports chronic skin infections. She has tried prescription therapy including topical treatments. She is seeking panniculectomy for correction of her functional deficits. She has lost over 100 pounds with sustained and stable weight loss over 1 year. Her ideal body weight is 154 pounds for her height is 5 foot 6 inches. Her highest weight is 310 pounds. Her initial BMI was 50.1. Today she comes in weighing 191 pounds unchanged, 6 months ago. Her body mass index reduced to 30.9. Lifetime weight loss is 119 pounds. Benefits and risks of the procedure including bleeding, infection, cosmetic deformity, abdominal seromas, placement of drains, risk of flap failure were described at length. Informed consent was obtained. DESCRIPTION: In the preanesthesia care unit the patient was marked with an indelible marker and was given lovenox subcutaneously. The patient was brought into the operating room and laid in supine position. After general induction, a Feldman catheter was placed. The abdomen was then prepped and draped in standard sterile fashion using ChloraPrep. The skin was prepped as far laterally to the back, inferiorly to the upper thighs and superiorly to above the chest. A timeout protocol was confirmed with the surgical team regarding patient's name, procedure to be performed, including preoperative medications. He had received Ancef IV antibiotics. Once the time-out protocol was confirmed with the surgical team, the patient was re-marked with indelible marker whereby the midline of the xiphoid to the mons pubis was marked. The anterior/superior iliac spine along the bilateral hips was also marked. At 8 cm above the pubis commissure a transverse incision was made for the inferior portion of the flap. Using a #10 blade, the incision was taken from the midline laterally to above the anterior/superior iliac spine, initially on the left side of the patient and then on the right side of the patient. Electro-Bovie cautery was used to control for hemostasis. The dissection was taken down to the level of the fascia. Landmarks used were the xiphoid process as well as the bilateral costal margins for the superior margin. Care was taken to reduced dog ears during the dissection. Once hemostasis was checked, a large ventral hernia fascial defect of 28 x 13 cm was identified unrelated to previous bariatric procedure. During this dissection, the umbilicus was truncated at its fascial insertion. Bilateral myocutaneous flap advancement was performed to close the large defect of 27 x 16 cm. After the muscular flaps were exposed, the midline was re-marked again from the xiphoid to the pubis commissure. Fascial imbrications x 3 were completed with primary repair reinforcement of the bilateral myocutaneous flap advancement using #2 Ethibond. The ventral hernia defect was completely repaired and closed. Hemostasis was once again checked with electro-Bovie cautery and all defects were addressed. Attention was now brought to closure of the flap. Using stainless steel skin celina, the midline was once again marked of the upper flap as well as the pubic commissure. The patient was placed in a flexed position of approximately 21 degrees at the hips. The pannus was extended inferiorly to the feet. The upper flap was created once the excess skin was excised. Once excised, the pannus was weighed at 8.92 pounds. Hemostasis was checked. Two round #19 Kwame drains were placed underneath the flap and brought out just inferior to the incision along the pubis. Drain stitch using 2-0 nylon was placed. The upper and lower flaps were reapproximated using skin celina. Once reapproximated, the skin was closed in layers using 0 Vicryl for the superficial fascial system followed by running 3-0 Monocryl for the deep dermis in a running subcuticular fashion. Once the incision was closed, bulb suction was attached. The skin was cleansed with hydrogen peroxide. Exofin tape including adhesive was placed along the length of the incision. Optifoam dressing was also placed over the incision and over the EZRA sites. At the end of the procedure, the needle, sponge and instrument count was verified correct. The patient was then transferred to a hospital bed in a beach chair position. An abdominal binder was placed. The patient was taken to the postanesthesia care unit in stable condition, awake and extubated.
[2020-09-30] MEDS: LACTATED RINGERS 1,000 ML IV SCH (05:32)
[2020-09-30] MEDS: 0.9% NACL WITH KCL 20 MEQ/L 1,000 ML IV SCH (05:33)
[2020-09-30] MEDS: KETOROLAC 15 MG/ML 1 ML VIAL IVP SCH ×3 (05:34→17:37)
[2020-09-30] MEDS: ACETAMINOPHEN TAB 500 MG TAB PO SCH ×4 (05:34→23:25)
[2020-09-30] MEDS: ALBUTEROL NEBULIZED 2.5 MG/3 ML INHALATION SCH ×5 (07:42→19:17)
[2020-09-30] MEDS ORDERED: 0.9% NACL WITH KCL 20 MEQ/L 1,000 ML IV SCH (08:00)
[2020-09-30] MEDS: PANTOPRAZOLE 40 MG/10 ML VIAL IV SCH (08:53)
[2020-09-30] MEDS: amLODIPine 5 MG TAB PO SCH (08:54)
[2020-09-30] MEDS: ENOXAPARIN 40 MG/0.4 ML SYRINGE SQ SCH (08:54)
[2020-09-30 09:14] LABS: Basophils # (A) 0.02 X 10*3/uL (0.00-0.10); Basophils % (A) 0.2 %; Eosinophils # (A) 0 X 10*3/uL (0.04-0.35); Eosinophils % (A) 0 %; HCT 33.3 % (37.2-46.3); HGB 10.5 g/dL (12.0-15.0); Lymphocytes # (A) 1.71 X 10*3/uL (0.90-5.00); Lymphocytes % (A) 16.6 %; MCH 27.1 pg (27.0-32.0); MCHC 31.5 g/dL (32.0-37.0); Mean Platelet Volume 9.8 fL (9.5-12.2); Monocytes # (A) 0.67 X 10*3/uL (0.20-1.00); Monocytes % (A) 6.5 %; Neutrophils # (A) 7.86 X 10*3/uL (1.80-7.70); Neutrophils % (A) 76.4 %; Platelet Count 307 X 10*3/uL (140-440); RBC 3.87 X 10*6/uL (4.10-5.20); RDW 15.5 % (11.5-14.5); WBC 10.29 X 10*3/uL (4.50-10.00)
[2020-09-30 09:38] LABS: African American GFR (CKD) 116.4 (60.0-200.0); Anion Gap 7.9 mmol/L (4.00-12.00); Calcium 8.3 mg/dL (8.7-10.3); Carbon Dioxide 24.1 mmol/L (21.6-31.8); Magnesium 1.8 mg/dL (1.5-2.4); Non-African American GFR(CKD) 100.5 (60.0-200.0); Phosphorus 4.2 mg/dL (2.4-5.1)
--- NOTE | 2020-09-30 15:28 | P.PN ---
<Carly Romo - Last Filed: 09/30/20 15:20> Subjective Progress Note Date: 09/30/20 CHIEF COMPLAINT: Panniculitis HISTORY OF PRESENT ILLNESS: Patient is postop day #1 status post Panniculectomy and abdominal wall reconstruction with myocutaneous bilateral flap advancement, 28 x 13 cm for ventral hernia repair without mesh. Patient is sitting in bedside chair. She does complain of abdominal pain. She rates it about a 4 out of 10. She does feel the pain medication is helping. She denies any nausea or vomiting. She denies any flatus or bowel movement. She has ambulated. Denies any difficulty urinating. Afebrile. WBC 10.29 Hgb 10.5 potassium 5 magnesium 1.8 PHYSICAL EXAM: VITAL SIGNS: Reviewed GENERAL: Well-developed in no acute distress. HEENT: No sclera icterus. Extraocular movements grossly intact. Moist buccal mucosa. Head is atraumatic, normocephalic. Hears conversational speech. No nasal drainage. NECK: Supple without lymphadenopathy. CHEST: Non-labored respirations and equal bilateral excursions. CARDIOVASCULAR: Palpable 2+ radial pulses. ABDOMEN: Soft. Nondistended. Incisional dressing clean dry and intact she has 2 EZRA drains with sanguinous drainage. MUSCULOSKELETAL: No clubbing or cyanosis. NEUROLOGIC: No focal or lateralizing signs. Cranial nerves II through XII g rossly intact. PSYCH: Appropriate affect. Alert and oriented to person, place and time. SKIN: Well perfused. Good skin turgor. ASSESSMENT: 1. Panniculitis with central adiposity 2. 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 Osteoarthritis of the knees. 4. Osteoarthritis of the hips. 5. Osteoarthritis of the lower back. 6. Obstructive sleep apnea. 7. Hypertensive heart disease. 8. Hypothyroidism. 9. Family history of morbid obesity. 10. Family history of diabetes type 2. 11. Status post gastric bypass 12. Hypertensive heart disease 13. Secondary hyperparathyroidism 15. Vitamin A deficiency 16. Zinc deficiency 17. Vitamin D deficiency 18. Status post massive weight loss 119 pounds 19. Morbid obesity due to excess calories with body mass index of 50.1 to 30.8 PLAN: -Continue pain medication as needed -Continue bariatric clear liquid diet -Encouraged patient to ambulate -Encouraged patient to use incentive spirometer -Potassium is 5.0 we will remove potassium from IV fluids Physician Base Cloth Inspector note has been reviewed by physician. Signing provider agrees with the documented findings, assessment, and plan of care. Objective - Vital Signs Vital signs: Vital Signs Temp 97.8 F 09/30/20 07:24 Pulse 60 09/30/20 07:24 Resp 17 09/30/20 07:24 BP 119/72 09/30/20 07:24 Pulse Ox 95 09/30/20 09:24 Intake & Output 09/29/20 09/30/20 09/30/20 18:59 06:59 18:59 Intake Total 1450 100 Output Total 905 90 Balance 1450 -805 -90 Weight 86 kg 86 kg Intake: IV 1450 100 Output: Drainage 55 90 Left Abdomen 15 30 Right Abdomen 40 60 Urine 550 Estimated Blood Loss 300 - Labs CBC & Chem 7: 09/30/20 05:48 09/30/20 05:48 Labs: Abnormal Lab Results - Last 24 Hours (Table) 09/30/20 09/30/20 Range/Units 05:48 05:48 WBC 10.29 H (4.50-10.00) X 10*3/uL RBC 3.87 L (4.10-5.20) X 10*6/uL Hgb 10.5 L (12.0-15.0) g/dL Hct 33.3 L (37.2-46.3) % MCHC 31.5 L (32.0-37.0) g/dL RDW 15.5 H (11.5-14.5) % Neutrophils # 7.86 H (1.80-7.70) X 10*3/uL Eosinophils # 0 L (0.04-0.35) X 10*3/uL Calcium 8.3 L (8.7-10.3) mg/dL <Felisha Carrillo - Last Filed: 10/01/20 09:22> Subjective As above. Continue to monitor for pain management. Objective - Vital Signs Vital signs: Vital Signs Temp 97.6 F 10/01/20 08:00 Pulse 43 L 10/01/20 08:00 Resp 19 10/01/20 08:00 BP 145/80 10/01/20 08:00 Pulse Ox 99 10/01/20 08:00 Intake & Output 09/30/20 10/01/20 10/01/20 18:59 06:59 18:59 Output Total 90 70 Balance -90 -70 Output: Drainage 90 70 Left Abdomen 30 40 Right Abdomen 60 30 Other: # Voids 1 - Labs CBC & Chem 7: 10/01/20 06:36 09/30/20 23:17 Labs: Abnormal Lab Results - Last 24 Hours (Table) 09/30/20 09/30/20 09/30/20 Range/Units 05:48 22:49 23:17 WBC (4.50-10.00) X 10*3/uL RBC 3.43 L (3.80-5.40) m/uL Hgb 9.4 L D (11.4-16.0) gm/dL Hct 30.8 L (34.0-46.0) % MCHC 30.5 L (31.0-37.0) g/dL RDW (11.5-14.5) % Sodium (137-145) mmol/L Chloride (98-107) mmol/L Carbon Dioxide (22-30) mmol/L Creatinine (0.52-1.04) mg/dL Glucose (74-99) mg/dL POC Glucose (mg/dL) 129 H (75-99) mg/dL Calcium 8.3 L (8.7-10.3) mg/dL 09/30/20 10/01/20 Range/Units 23:17 06:36 WBC 10.54 H (4.50-10.00) X 10*3/uL RBC 3.88 L (3.80-5.40) m/uL Hgb 10.7 L (11.4-16.0) gm/dL Hct 34.7 L (34.0-46.0) % MCHC 30.8 L (31.0-37.0) g/dL RDW 16.2 H (11.5-14.5) % Sodium 136 L (137-145) mmol/L Chloride 110 H (98-107) mmol/L Carbon Dioxide 20 L (22-30) mmol/L Creatinine 0.46 L (0.52-1.04) mg/dL Glucose 127 H (74-99) mg/dL POC Glucose (mg/dL) (75-99) mg/dL Calcium 8.0 L (8.7-10.3) mg/dL
[2020-09-30] MEDS: SODIUM CHLORIDE 0.9% 1,000 ML IV SCH ×2 (17:37→23:09)
[2020-09-30 22:52] LABS: Glucose,Whole Blood 129 mg/dL (75-99)
[2020-09-30] MEDS ORDERED: SODIUM CHLORIDE 0.9% 1,000 ML IV ONE (23:02)
[2020-09-30 23:28] LABS: Basophils # (A) 0.1 k/uL (0-0.2); Basophils % (A) 1 %; Eosinophils # (A) 0.1 k/uL (0-0.7); Eosinophils % (A) 2 %; HCT 30.8 % (34.0-46.0); Hypochromasia Marked; Lymphocytes % (A) 24 %; MCH 27.4 pg (25.0-35.0); MCHC 30.5 g/dL (31.0-37.0); MCV 89.8 fL (80.0-100.0); Mean Platelet Volume 7.2; Monocytes # (A) 0.4 k/uL (0-1.0); Monocytes % (A) 5 %; Neutrophils # (A) 5.6 k/uL (1.3-7.7); Neutrophils % (A) 68 %; Platelet Count 269 k/uL (150-450); RBC 3.43 m/uL (3.80-5.40); RDW 15.5 % (11.5-15.5); WBC 8.3 k/uL (3.8-10.6)
[2020-09-30 23:33] LABS: HGB 9.4 gm/dL (11.4-16.0)
[2020-09-30 23:38] LABS: African American GFR (CKD) >90 (>60 ml/min/1.73 sqM); Anion Gap 6 mmol/L; Blood Urea Nitrogen 11 mg/dL (7-17); Carbon Dioxide 20 mmol/L (22-30); Chloride 110 mmol/L (98-107); Glucose 127 mg/dL (74-99); Non-African American GFR(CKD) >90 (>60 ml/min/1.73 sqM); Potassium 4.2 mmol/L (3.5-5.1); Sodium 136 mmol/L (137-145)
[2020-10-01] MEDS: KETOROLAC 15 MG/ML 1 ML VIAL IVP SCH ×3 (00:14→12:53)
[2020-10-01] MEDS: LACTATED RINGERS 1,000 ML IV SCH (04:44)
[2020-10-01 05:30] VITALS: TEMP 97.6
[2020-10-01] MEDS: ACETAMINOPHEN TAB 500 MG TAB PO SCH ×2 (06:02→12:53)
[2020-10-01 07:11] LABS: Glucose,Whole Blood 79 mg/dL (75-99)
[2020-10-01] MEDS ORDERED: bisacodyL 5 MG TABLET.DR PO PRN (08:00)
[2020-10-01 08:07] VITALS: BP 145/80; PULSE 43; RESP 19
[2020-10-01] MEDS: ALBUTEROL NEBULIZED 2.5 MG/3 ML INHALATION SCH ×2 (08:37→11:30)
[2020-10-01] MEDS: PANTOPRAZOLE 40 MG/10 ML VIAL IV SCH (08:55)
[2020-10-01] MEDS: ENOXAPARIN 40 MG/0.4 ML SYRINGE SQ SCH (08:55)
[2020-10-01] MEDS: amLODIPine 5 MG TAB PO SCH (08:55)
[2020-10-01] MEDS ORDERED: SODIUM FERRIC GLUCONAT-SUCROSE 125 MG in SODIUM CHLORIDE 0.9% 100 ML IVPB SCH (09:00)
[2020-10-01 09:18] LABS: Basophils # (A) 0.07 X 10*3/uL (0.00-0.10); Basophils % (A) 0.7 %; Eosinophils # (A) 0.07 X 10*3/uL (0.04-0.35); Eosinophils % (A) 0.7 %; HCT 34.7 % (37.2-46.3); HGB 10.7 g/dL (12.0-15.0); Lymphocytes # (A) 2.24 X 10*3/uL (0.90-5.00); Lymphocytes % (A) 21.3 %; MCH 27.6 pg (27.0-32.0); MCHC 30.8 g/dL (32.0-37.0); MCV 89.4 fL (80.0-97.0); Monocytes # (A) 0.46 X 10*3/uL (0.20-1.00); Monocytes % (A) 4.4 %; Neutrophils # (A) 7.66 X 10*3/uL (1.80-7.70); Neutrophils % (A) 72.5 %; Platelet Count 291 X 10*3/uL (140-440); RBC 3.88 X 10*6/uL (4.10-5.20); RDW 16.2 % (11.5-14.5); WBC 10.54 X 10*3/uL (4.50-10.00)
--- NOTE | 2020-10-01 09:27 | P.PN ---
Subjective Progress Note Date: 10/01/20 CHIEF COMPLAINT: Panniculitis HISTORY OF PRESENT ILLNESS: The patient is a 60-year-old female status post panniculectomy with myocutaneous flap advancement, 09/29/2020. Her pain is controlled. Overnight she had vasovagal episode was hypotension. She reports pre-existing episodes at home. Prior to surgery, patient did see a preform machine operator and had been cleared. No reports of chest pain. No reports of shortness of breath. " I feel fine!" She is happy with the cosmetic result. She is tolerating regular diet. PHYSICAL EXAM: VITAL SIGNS: Height 5 foot 6 inches, weight 191 pounds. BMI 30.8. GENERAL: Well-developed in no acute distress. HEENT: No scleral icterus. Extraocular movements grossly intact. Hears conversational speech. No nasal drainage. NECK: Supple without lymphadenopathy. CHEST: Nonlabored respirations with equal bilateral excursions. CARDIOVASCULAR: Regular rate and regular rhythm. Distal 2+ pulses. ABDOMEN: Dressed and intact. Abdominal binder repositioned. No cellulitis or infection MUSCULOSKELETAL: No clubbing, cyanosis. NEURO: No focal or lateralizing signs. Cranial nerves 2 through 12 grossly within normal limits. PSYCH: Appropriate affect. Alert and oriented to person, place and time. SKIN: Good skin turgor. Well perfused. LABS: Hemoglobin improved from yesterday. ASSESSMENT: 1. Morbid obesity due to excess calories. 2. Body mass index of 50.1 to 30.6 3. Osteoarthritis of the knees. 4. Osteoarthritis of the hips. 5. Osteoarthritis of the lower back. 6. Obstructive sleep apnea. 7. Hypertensive heart disease. 8. Hypothyroidism. 9. Family history of morbid obesity. 10. Family history of diabetes type 2. 11. Status post gastric bypass 12. Panniculitis 13. Secondary hyperparathyroidism 14. Hair loss 15. Vitamin A deficiency 16. Zinc deficiency 17. Hypertensive heart disease 18. Panniculus grade 3 PLAN: 1. We'll send for troponins for vasovagal episode. 2. Will give iron infusion for expected blood loss following surgery 3. Anticipated discharge pending troponin Objective - Vital Signs Vital signs: Vital Signs Temp 97.6 F 10/01/20 08:00 Pulse 43 L 10/01/20 08:00 Resp 19 10/01/20 08:00 BP 145/80 10/01/20 08:00 Pulse Ox 99 10/01/20 08:00 Intake & Output 09/30/20 10/01/20 10/01/20 18:59 06:59 18:59 Output Total 90 70 Balance -90 -70 Output: Drainage 90 70 Left Abdomen 30 40 Right Abdomen 60 30 Other: # Voids 1 - Labs CBC & Chem 7: 10/01/20 06:36 09/30/20 23:17 Labs: Abnormal Lab Results - Last 24 Hours (Table) 09/30/20 09/30/20 09/30/20 Range/Units 05:48 05:48 22:49 WBC 10.29 H (4.50-10.00) X 10*3/uL RBC 3.87 L (4.10-5.20) X 10*6/uL Hgb 10.5 L (12.0-15.0) g/dL Hct 33.3 L (37.2-46.3) % MCHC 31.5 L (32.0-37.0) g/dL RDW 15.5 H (11.5-14.5) % Neutrophils # 7.86 H (1.80-7.70) X 10*3/uL Eosinophils # 0 L (0.04-0.35) X 10*3/uL Sodium (137-145) mmol/L Chloride (98-107) mmol/L Carbon Dioxide (22-30) mmol/L Creatinine (0.52-1.04) mg/dL Glucose (74-99) mg/dL POC Glucose (mg/dL) 129 H (75-99) mg/dL Calcium 8.3 L (8.7-10.3) mg/dL 09/30/20 09/30/20 Range/Units 23:17 23:17 WBC (4.50-10.00) X 10*3/uL RBC 3.43 L (4.10-5.20) X 10*6/uL Hgb 9.4 L D (12.0-15.0) g/dL Hct 30.8 L (37.2-46.3) % MCHC 30.5 L (32.0-37.0) g/dL RDW (11.5-14.5) % Neutrophils # (1.80-7.70) X 10*3/uL Eosinophils # (0.04-0.35) X 10*3/uL Sodium 136 L (137-145) mmol/L Chloride 110 H (98-107) mmol/L Carbon Dioxide 20 L (22-30) mmol/L Creatinine 0.46 L (0.52-1.04) mg/dL Glucose 127 H (74-99) mg/dL POC Glucose (mg/dL) (75-99) mg/dL Calcium 8.0 L (8.7-10.3) mg/dL Assessment and Plan (1) Central adiposity Current Visit: Yes Status: Acute Code(s): E65 - LOCALIZED ADIPOSITY SNOMED Code(s): 035493185 (2) Panniculitis Current Visit: Yes Status: Acute Code(s): M79.3 - PANNICULITIS, UNSPECIFIED SNOMED Code(s): 31343286 (3) Ventral hernia Current Visit: Yes Status: Acute Code(s): K43.9 - VENTRAL HERNIA WITHOUT OBSTRUCTION OR GANGRENE SNOMED Code(s): 228311255
[2020-10-01 10:51] LABS: African American GFR (CKD) 123.6 (60.0-200.0); Anion Gap 9.8 mmol/L (4.00-12.00); Calcium 9.2 mg/dL (8.7-10.3); Carbon Dioxide 19.2 mmol/L (21.6-31.8); Non-African American GFR(CKD) 106.7 (60.0-200.0); Potassium 4.5 mmol/L (3.5-5.5)
--- NOTE | 2020-10-01 11:30 | P.DS ---
Providers Date of admission: 09/29/2020 Expected date of discharge: 10/01/20 Attending physician: Felisha Carrillo Consults: 09/29/20 06:36 Consult Physician Routine Consulting Provider: [facility] Consult Reason/Comments: Abdominal wall block Do you want consulting provider notified?: Yes Primary care physician: Erasto Bravo - Discharge Diagnosis(es) (1) Central adiposity Current Visit: Yes Status: Acute (2) Panniculitis Current Visit: Yes Status: Acute (3) Ventral hernia Current Visit: Yes Status: Acute (4) Vasovagal episode Current Visit: Yes Status: Acute Hospital Course: POSTOPERATIVE DIAGNOSES: 1. Panniculitis with central adiposity 2. 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 Osteoarthritis of the knees. 4. Osteoarthritis of the hips. 5. Osteoarthritis of the lower back. 6. Obstructive sleep apnea. 7. Hypertensive heart disease. 8. Hypothyroidism. 9. Family history of morbid obesity. 10. Family history of diabetes type 2. 11. Status post gastric bypass 12. Hypertensive heart disease 13. Secondary hyperparathyroidism 15. Vitamin A deficiency 16. Zinc deficiency 17. Vitamin D deficiency 18. Status post massive weight loss 119 pounds 19. Morbid obesity due to excess calories with body mass index of 50.1 to 30.8 COURSE: Patient is a 52-year-old female who comes in with panniculitis and central adiposity. She status post panniculectomy with abdominal wall reconstruction using myocutaneous flap advancement 09/29/2020. Postoperatively, she was monitored for expected postoperative pain. She had a vasovagal episode where components were unremarkable. She has recent cardiac risk assessment. She was stable tolerating diet. Pain was controlled. She was stable for discharge. Discharge instructions including pain management were described. Follow-up in the bariatric center in 3 days. Procedures: OPERATION: 1. Panniculectomy, 8.92 pounds. 2. Abdominal wall reconstruction with myocutaneous bilateral flap advancement, 28 x 13 cm for ventral hernia repair without mesh. ANESTHESIA: General ESTIMATED BLOOD LOSS: 300 mL SPECIMENS REMOVED: Pannus 8.92 pounds. COMPLICATIONS: None. CONDITION: Stable. DRAINS: Two #19 Kwame drains below abdominal flap extending through the pubis. OPERATIVE FINDINGS: 1. Pannus weighing 8.92 pounds, excised. 2. Abdominal ventral hernia of 28 x 12 cm along the midline Patient Condition at Discharge: Stable Plan - Discharge Summary Discharge Rx Participant: Yes New Discharge Prescriptions: New Acetaminophen Tab [Tylenol Tab] 1,000 mg PO Q6HR PRN #30 tablet PRN Reason: Pain Continue amLODIPine [Norvasc] 5 mg PO DAILY Aspirin 1 tab PO DAILY rOPINIRole HCL [Requip] 1 mg PO TID amantadine HCL [Amantadine] 100 mg PO BID Discharge Medication List amLODIPine [Norvasc] 5 mg PO DAILY 04/21/20 [History] Aspirin 1 tab PO DAILY 04/25/20 [History] amantadine HCL [Amantadine] 100 mg PO BID 09/11/20 [History] rOPINIRole HCL [Requip] 1 mg PO TID 09/11/20 [History] Acetaminophen Tab [Tylenol Tab] 1,000 mg PO Q6HR PRN #30 tablet 10/01/20 [Rx] [facility]Ref[facility] [place] [facility] 10/03/20 9:00 am Patient Instructions/Handouts: Rik-Sanchez Drain Care (DC), Panniculectomy (DC) Activity/Diet/Wound Care/Special Instructions: Protein intake over 75 grams daily for optimal recovery. No lifting over 4 pounds in 4 weeks, October 27. No bathtub soaks. No shower. No stretching or twisting. Sleep in a recliner. DO NOT REMOVE DRESSINGS. DO NOT REMOVE BINDER. Keep record of EZRA outputs daily. Discharge Disposition: HOME SELF-CARE
[2020-10-01 11:51] LABS: Glucose,Whole Blood 86 mg/dL (75-99)
[2020-10-01] MEDS: SODIUM CHLORIDE 0.9% 1,000 ML IV SCH (12:41)
[2020-10-02] MEDS ORDERED: PANTOPRAZOLE 40 MG TABLET PO SCH (07:30)
== END 2020-10-01 15:03 | disposition home or self-care (01) | DRG 577 ==
LOC: OR 11:52 → 4SSUR 11:53
PROVIDERS: ADMIT Surgery Plastic and Reconstructive Surgery; ATTEND Surgery Plastic and Reconstructive Surgery
PROC: 0JB80ZZ Excision of Abdomen Subcutaneous Tissue and Fascia, Open Approach (ICD-10-PCS; principal; 2020-09-29 14:00)
PROC: 0JX80ZC Transfer Abdomen Subcutaneous Tissue and Fascia with Skin, Subcutaneous Tissue and Fascia, Open Approach (ICD-10-PCS; principal; 2020-09-29 14:00)
PROC: 0WQF0ZZ Repair Abdominal Wall, Open Approach (ICD-10-PCS; principal; 2020-09-29 14:00)
DX: M79.3 Panniculitis, unspecified (principal); Z68.43 Body mass index [BMI] 50.0-59.9, adult; N25.81 Secondary hyperparathyroidism of renal origin; M17.0 Bilateral primary osteoarthritis of knee; M16.0 Bilateral primary osteoarthritis of hip; K43.9 Ventral hernia without obstruction or gangrene; I11.9 Hypertensive heart disease without heart failure; G47.33 Obstructive sleep apnea (adult) (pediatric); G25.0 Essential tremor; E66.01 Morbid (severe) obesity due to excess calories; E55.9 Vitamin D deficiency, unspecified; E50.9 Vitamin A deficiency, unspecified; E11.9 Type 2 diabetes mellitus without complications; E03.9 Hypothyroidism, unspecified; E60 Dietary zinc deficiency; M47.9 Spondylosis, unspecified; G20 Parkinson's disease; Z98.84 Bariatric surgery status; Z87.442 Personal history of urinary calculi; Z83.3 Family history of diabetes mellitus; Z82.0 Family history of epilepsy and other diseases of the nervous system; Z79.899 Other long term (current) drug therapy; Z79.82 Long term (current) use of aspirin
CPT/HCPCS: 64461; 80048; 80051; 82310; 82565; 83735; 84100; 84484; 84520; 85025; 93005

== ENCOUNTER → 2020-10-03 | Outpatient (CLI) | payer OTHER, MEDICARE ==
[2020-10-03 10:20] VITALS: BMI 41.1
--- NOTE | 2020-10-03 11:10 | P.PN ---
Subjective Progress Note Date: 10/03/20 DATE: 10/03/2020 CHIEF COMPLAINT: Status post panniculectomy HISTORY OF PRESENT ILLNESS: The patient is a 60-year-old female status post gastric bypass March 2015. She is status post panniculectomy, 9 pounds, 09/29/20. She is very pleased with her cosmetic result. She has minimal output from her EZRA drains. Her ideal body weight is 154 pounds for her height is 5 foot 6 inches. Her highest weight is 310 pounds. Her initial BMI was 50.1. Today she comes in weighing 189 pounds from 191 pounds. She has lost 2 pounds in2 weeks. Her body mass index reduced to 30.6. Lifetime weight loss is 121 pounds. Lifetime percent excess weight loss is 77%. PHYSICAL EXAM: VITAL SIGNS: Height 5 foot 6 inches, weight 189 pounds. BMI 30.6. GENERAL: Well-developed in no acute distress. HEENT: No scleral icterus. Extraocular movements grossly intact. Hears conversational speech. No nasal drainage. NECK: Supple without lymphadenopathy. CHEST: Nonlabored respirations with equal bilateral excursions. CARDIOVASCULAR: Regular rate and regular rhythm. Distal 2+ pulses. ABDOMEN: Incisions clean, dry and intact with dressings. EZRA drains are sanguinous. Abdominal binder repositioned. No cellulitis or infection. MUSCULOSKELETAL: No clubbing, cyanosis. NEURO: No focal or lateralizing signs. Cranial nerves 2 through 12 grossly within normal limits. PSYCH: Appropriate affect. Alert and oriented to person, place and time. SKIN: Good skin turgor. Well perfused. ASSESSMENT: 1. Morbid obesity due to excess calories. 2. Body mass index of 50.1 to 30.6 3. Osteoarthritis of the knees. 4. Osteoarthritis of the hips. 5. Osteoarthritis of the lower back. 6. Obstructive sleep apnea. 7. Hypertensive heart disease. 8. Hypothyroidism. 9. Family history of morbid obesity. 10. Family history of diabetes type 2. 11. Status post gastric bypass 12. Panniculitis 13. Secondary hyperparathyroidism 14. Hair loss 15. Vitamin A deficiency 16. Zinc deficiency 17. Hypertensive heart disease 18. Status post panniculectomy PLAN: 1. Recommend high-protein diet 2. Remove external dressings in 5 days. 3. Continue abdominal binder. Objective - Vital Signs Vital signs: Intake & Output 10/02/20 10/03/20 10/03/20 18:59 06:59 18:59 Weight 115.666 kg
== END | disposition home or self-care (01) ==
LOC: BARWHC3 08:52
PROVIDERS: ATTEND Surgery Plastic and Reconstructive Surgery
DX: E66.01 Morbid (severe) obesity due to excess calories (principal); M17.0 Bilateral primary osteoarthritis of knee; M16.0 Bilateral primary osteoarthritis of hip; M47.9 Spondylosis, unspecified; G47.33 Obstructive sleep apnea (adult) (pediatric); I11.9 Hypertensive heart disease without heart failure; E03.9 Hypothyroidism, unspecified; M79.3 Panniculitis, unspecified; N25.81 Secondary hyperparathyroidism of renal origin; E50.9 Vitamin A deficiency, unspecified; E60 Dietary zinc deficiency; Z83.49 Family history of other endocrine, nutritional and metabolic diseases; Z68.41 Body mass index [BMI] 40.0-44.9, adult; Z98.84 Bariatric surgery status
CPT/HCPCS: 99212

== ENCOUNTER → 2020-10-08 | Outpatient (CLI) | payer MEDICARE, OTHER ==
[2020-10-08 15:58] VITALS: BP 157/86; PULSE 56; RESP 16; TEMP 97.6; BMI 29.2
--- NOTE | 2020-10-08 16:36 | P.PN ---
Subjective Progress Note Date: 10/08/20 DATE: 10/08/2020 CHIEF COMPLAINT: Status post panniculectomy HISTORY OF PRESENT ILLNESS: The patient is a 60-year-old female status post gastric bypass March 2015. She is status post panniculectomy, 9 pounds, 09/29/20. She is 2 weeks out. She has lost 7 pounds. She denies abdominal pain. Her EZRA outputs are more than 30 mL per day. Her ideal body weight is 154 pounds for her height is 5 foot 6 inches. Her highest weight is 310 pounds. Her initial BMI was 50.1. Today she comes in weighing 181 pounds from 189 pounds, 1 week ago. She has lost 9 pounds in 1 week. Her body mass index reduced to 29.2. Lifetime weight loss is 129 pounds. Lifetime percent excess weight loss is 83%. PHYSICAL EXAM: VITAL SIGNS: Height 5 foot 6 inches, weight 181 pounds. BMI 29.2 Vital Signs Temp 97.6 F 10/08/20 15:54 Pulse 56 L 10/08/20 15:54 Resp 16 10/08/20 15:54 BP 157/86 10/08/20 15:54 Pulse Ox GENERAL: Well-developed in no acute distress. HEENT: No scleral icterus. Extraocular movements grossly intact. Hears conversational speech. No nasal drainage. NECK: Supple without lymphadenopathy. CHEST: Nonlabored respirations with equal bilateral excursions. CARDIOVASCULAR: Regular rate and regular rhythm. Distal 2+ pulses. ABDOMEN: No cellulitis or infection. External dressings removed. EZRA is serosanguinous. Binder repositioned. MUSCULOSKELETAL: No clubbing, cyanosis. NEURO: No focal or lateralizing signs. Cranial nerves 2 through 12 grossly within normal limits. PSYCH: Appropriate affect. Alert and oriented to person, place and time. SKIN: Good skin turgor. Well perfused. ASSESSMENT: 1. Morbid obesity due to excess calories. 2. Body mass index of 50.1 to 29.2 3. Osteoarthritis of the knees. 4. Osteoarthritis of the hips. 5. Osteoarthritis of the lower back. 6. Obstructive sleep apnea. 7. Hypertensive heart disease. 8. Hypothyroidism. 9. Family history of morbid obesity. 10. Family history of diabetes type 2. 11. Status post gastric bypass 12. Panniculitis 13. Secondary hyperparathyroidism 14. Hair loss 15. Vitamin A deficiency 16. Zinc deficiency 17. Hypertensive heart disease 18. Status post panniculectomy PLAN: 1. Follow up 1 week. 2. Continue abdominal binder Objective - Vital Signs Vital signs: Vital Signs Temp 97.6 F 10/08/20 15:54 Pulse 56 L 10/08/20 15:54 Resp 16 10/08/20 15:54 BP 157/86 10/08/20 15:54 Pulse Ox Intake & Output 10/07/20 10/08/20 10/08/20 18:59 06:59 18:59 Weight 82.1 kg
== END ==
LOC: BARWHC3 15:25
PROVIDERS: ATTEND Surgery Plastic and Reconstructive Surgery
DX: Z98.890 Other specified postprocedural states (principal); E66.01 Morbid (severe) obesity due to excess calories; Z68.29 Body mass index [BMI] 29.0-29.9, adult; M17.0 Bilateral primary osteoarthritis of knee; M16.0 Bilateral primary osteoarthritis of hip; M47.9 Spondylosis, unspecified; G47.33 Obstructive sleep apnea (adult) (pediatric); I11.9 Hypertensive heart disease without heart failure; E03.9 Hypothyroidism, unspecified; M79.3 Panniculitis, unspecified; N25.81 Secondary hyperparathyroidism of renal origin; Z83.3 Family history of diabetes mellitus; Z98.84 Bariatric surgery status; Z83.49 Family history of other endocrine, nutritional and metabolic diseases; L65.9 Nonscarring hair loss, unspecified; E50.9 Vitamin A deficiency, unspecified; E60 Dietary zinc deficiency
CPT/HCPCS: 99211

== ENCOUNTER → 2020-10-15 | Outpatient (CLI) | payer OTHER, MEDICARE ==
[2020-10-15 15:37] VITALS: BP 157/80; PULSE 55; RESP 16; TEMP 98.2; BMI 29.7
--- NOTE | 2020-10-15 16:23 | P.PN ---
Subjective Progress Note Date: 10/15/20 Looking great. Removed tape. Continue binder. Adjust to waist education trainer. Follow up in 1 week. Objective - Vital Signs Vital signs: Vital Signs Temp 98.2 F 10/15/20 15:35 Pulse 55 L 10/15/20 15:35 Resp 16 10/15/20 15:35 BP 157/80 10/15/20 15:35 Pulse Ox Intake & Output 10/14/20 10/15/20 10/15/20 18:59 06:59 18:59 Weight 83.461 kg
== END | disposition home or self-care (01) ==
LOC: BARWHC3 14:56
PROVIDERS: ATTEND Surgery Plastic and Reconstructive Surgery
DX: E66.01 Morbid (severe) obesity due to excess calories (principal); E11.9 Type 2 diabetes mellitus without complications; I10 Essential (primary) hypertension
CPT/HCPCS: 99211

== ENCOUNTER → 2020-10-22 | Outpatient (CLI) | payer OTHER, MEDICARE ==
[2020-10-22 16:36] VITALS: BP 147/84; PULSE 66; RESP 18; TEMP 97.9; BMI 29.8
--- NOTE | 2020-10-22 17:23 | P.PN ---
Subjective Progress Note Date: 10/22/20 DATE: 10/22/2020 CHIEF COMPLAINT: Status post panniculectomy HISTORY OF PRESENT ILLNESS: The patient is a 60-year-old female status post gastric bypass March 2015. She is status post panniculectomy, 9 pounds, 09/29/20. She is 4 weeks out. No reports of abdominal pain. She is exercising. Her ideal body weight is 154 pounds for her height is 5 foot 6 inches. Her highest weight is 310 pounds. Her initial BMI was 50.1. Today she comes in weighing 184 pounds from 181 pounds, 1 week ago. She has gained 3 pounds in 1 week. Her body mass index is reduced to 29.7. Lifetime weight loss is 126 pounds. Lifetime percent excess weight loss is 81%. PHYSICAL EXAM: VITAL SIGNS: Height 5 foot 6 inches, weight 184 pounds. BMI 29.8 Vital Signs Temp 97.9 F 10/22/20 16:25 Pulse 66 10/22/20 16:25 Resp 18 10/22/20 16:25 BP 147/84 10/22/20 16:25 Pulse Ox GENERAL: Well-developed in no acute distress. HEENT: No scleral icterus. Extraocular movements grossly intact. Hears conversational speech. No nasal drainage. NECK: Supple without lymphadenopathy. CHEST: Nonlabored respirations with equal bilateral excursions. CARDIOVASCULAR: Regular rate and regular rhythm. Distal 2+ pulses. ABDOMEN: No cellulitis or infection. EZRA is serous. MUSCULOSKELETAL: No clubbing, cyanosis. NEURO: No focal or lateralizing signs. Cranial nerves 2 through 12 grossly within normal limits. PSYCH: Appropriate affect. Alert and oriented to person, place and time. SKIN: Good skin turgor. Well perfused. ASSESSMENT: 1. Morbid obesity due to excess calories. 2. Body mass index of 50.1 to 29.8 3. Osteoarthritis of the knees. 4. Osteoarthritis of the hips. 5. Osteoarthritis of the lower back. 6. Obstructive sleep apnea. 7. Hypertensive heart disease. 8. Hypothyroidism. 9. Family history of morbid obesity. 10. Family history of diabetes type 2. 11. Status post gastric bypass 12. Panniculitis 13. Secondary hyperparathyroidism 14. Hair loss 15. Vitamin A deficiency 16. Zinc deficiency 17. Hypertensive heart disease 18. Status post panniculectomy PLAN: 1. Recommend continue drains for outputs, over 30 mL 2. Drains and incisions were cleansed with chloraprep 3. Follow up in 1 week. Objective - Vital Signs Vital signs: Vital Signs Temp 97.9 F 10/22/20 16:25 Pulse 66 10/22/20 16:25 Resp 18 10/22/20 16:25 BP 147/84 10/22/20 16:25 Pulse Ox Intake & Output 10/21/20 10/22/20 10/22/20 18:59 06:59 18:59 Weight 83.779 kg
== END ==
LOC: BARWHC3 15:17
PROVIDERS: ATTEND Surgery Plastic and Reconstructive Surgery
DX: E66.01 Morbid (severe) obesity due to excess calories (principal); M17.0 Bilateral primary osteoarthritis of knee; M47.816 Spondylosis without myelopathy or radiculopathy, lumbar region; M16.0 Bilateral primary osteoarthritis of hip; G47.33 Obstructive sleep apnea (adult) (pediatric); I11.9 Hypertensive heart disease without heart failure; E03.9 Hypothyroidism, unspecified; M79.3 Panniculitis, unspecified; N25.81 Secondary hyperparathyroidism of renal origin; L65.9 Nonscarring hair loss, unspecified; E50.9 Vitamin A deficiency, unspecified; E60 Dietary zinc deficiency; Z68.29 Body mass index [BMI] 29.0-29.9, adult; Z98.84 Bariatric surgery status; Z98.890 Other specified postprocedural states; Z83.3 Family history of diabetes mellitus; Z83.49 Family history of other endocrine, nutritional and metabolic diseases
CPT/HCPCS: 99212

== ENCOUNTER → 2020-10-29 | Outpatient (CLI) | payer OTHER, MEDICARE ==
[2020-10-29 15:53] VITALS: BP 155/66; PULSE 58; RESP 18; TEMP 98.1; BMI 29.8
--- NOTE | 2020-10-29 16:32 | P.PN ---
Subjective Progress Note Date: 10/29/20 EZRA removed. Drains less than 30 ml/daily. Recommend no movement. All drains removed. Objective - Vital Signs Vital signs: Vital Signs Temp 98.1 F 10/29/20 15:40 Pulse 58 L 10/29/20 15:40 Resp 18 10/29/20 15:40 BP 155/66 10/29/20 15:40 Pulse Ox Intake & Output 10/28/20 10/29/20 10/29/20 18:59 06:59 18:59 Weight 83.915 kg
== END ==
LOC: BARWHC3 15:13
PROVIDERS: ATTEND Surgery Plastic and Reconstructive Surgery
DX: E66.01 Morbid (severe) obesity due to excess calories (principal); I10 Essential (primary) hypertension; E11.9 Type 2 diabetes mellitus without complications; M19.90 Unspecified osteoarthritis, unspecified site; F32.9 Major depressive disorder, single episode, unspecified; G20 Parkinson's disease; Z68.29 Body mass index [BMI] 29.0-29.9, adult; Z79.82 Long term (current) use of aspirin; Z79.899 Other long term (current) drug therapy
CPT/HCPCS: 99212

== ENCOUNTER → 2020-10-30 | Outpatient (CLI) | payer OTHER, MEDICARE ==
--- NOTE | 2020-10-30 12:13 | MM ---
Reason for exam: follow-up at short interval from prior study. Last mammogram was performed 7 months ago. History: Patient is postmenopausal. Benign MG stereo VAD BX RT of the right breast, May 01, 2020. Physical Findings: Nurse did not find any significant physical abnormalities on exam. MG 3D Diag Mammo W/Cad RT CC and MLO view(s) were taken of the right breast. Prior study comparison: March 28, 2020, right breast MG 3d work up w/cad RT. March 24, 2020, bilateral MG 3d screening mammo w/cad. There are scattered fibroglandular densities. Previous mammotome biopsy in the right breast. There is no discrete abnormality. These results were verbally communicated with the patient and result sheet given to the patient on 10/30/20. ASSESSMENT: Benign, BI-RAD 2 RECOMMENDATION: Return to routine screening mammogram schedule for both breasts. Back on schedule.
== END | disposition home or self-care (01) ==
LOC: RADMAMWWP 10:58
PROVIDERS: ATTEND Surgery
DX: R92.8 Other abnormal and inconclusive findings on diagnostic imaging of breast (principal); Z78.0 Asymptomatic menopausal state
CPT/HCPCS: 77061; 77065

== ENCOUNTER → 2020-11-05 | Outpatient (CLI) | payer OTHER, MEDICARE ==
[2020-11-05 16:50] VITALS: BP 142/77; PULSE 67; RESP 16; TEMP 98
--- NOTE | 2020-11-05 16:50 | P.PN ---
Subjective Progress Note Date: 11/05/20 DATE: 11/05/2020 CHIEF COMPLAINT: Status post panniculectomy HISTORY OF PRESENT ILLNESS: The patient is a 60-year-old female status post gastric bypass March 2015. She is 6 years postop. She is status post panniculectomy, 9 pounds, 09/29/20. She is 5 weeks postop. She denies any abdominal pain. She is active. No fevers or chills. Her ideal body weight is 154 pounds for her height is 5 foot 6 inches. Her highest weight is 310 pounds. Her initial BMI was 50.1. Today she comes in weighing 185 pounds in 1 week. Her body mass index is reduced to 29.9. Lifetime weight loss is 125 pounds. Lifetime percent excess weight loss is 80%. PHYSICAL EXAM: VITAL SIGNS: Height 5 foot 6 inches, weight 185 pounds. BMI 29.9 Vital Signs Temp 98 F 11/05/20 16:45 Pulse 67 11/05/20 16:45 Resp 16 11/05/20 16:45 BP 142/77 11/05/20 16:45 Pulse Ox GENERAL: Well-developed in no acute distress. HEENT: No scleral icterus. Extraocular movements grossly intact. Hears conversational speech. No nasal drainage. NECK: Supple without lymphadenopathy. CHEST: Nonlabored respirations with equal bilateral excursions. CARDIOVASCULAR: Regular rate and regular rhythm. Distal 2+ pulses. ABDOMEN: No large seromas. Skin flaps are viable. MUSCULOSKELETAL: No clubbing, cyanosis. NEURO: No focal or lateralizing signs. Cranial nerves 2 through 12 grossly within normal limits. PSYCH: Appropriate affect. Alert and oriented to person, place and time. SKIN: Good skin turgor. Well perfused. ASSESSMENT: 1. Morbid obesity due to excess calories. 2. Body mass index of 50.1 to 29.8 3. Osteoarthritis of the knees. 4. Osteoarthritis of the hips. 5. Osteoarthritis of the lower back. 6. Obstructive sleep apnea. 7. Hypertensive heart disease. 8. Hypothyroidism. 9. Family history of morbid obesity. 10. Family history of diabetes type 2. 11. Status post gastric bypass 12. Panniculitis 13. Secondary hyperparathyroidism 14. Hair loss 15. Vitamin A deficiency 16. Zinc deficiency 17. Hypertensive heart disease 18. Status post panniculectomy PLAN: 1. She has mild fluid retention and her blood pressure is higher. Natural diuretic foods advised such a celery. 2. Follow up 1 week.
== END ==
LOC: BARWHC3 15:25
PROVIDERS: ATTEND Surgery Plastic and Reconstructive Surgery
DX: E66.01 Morbid (severe) obesity due to excess calories (principal); M17.0 Bilateral primary osteoarthritis of knee; M16.0 Bilateral primary osteoarthritis of hip; M47.9 Spondylosis, unspecified; G47.33 Obstructive sleep apnea (adult) (pediatric); E03.9 Hypothyroidism, unspecified; I11.9 Hypertensive heart disease without heart failure; Z98.84 Bariatric surgery status; Z83.3 Family history of diabetes mellitus; Z83.49 Family history of other endocrine, nutritional and metabolic diseases; L65.9 Nonscarring hair loss, unspecified; E50.9 Vitamin A deficiency, unspecified; E60 Dietary zinc deficiency; Z98.890 Other specified postprocedural states; N25.81 Secondary hyperparathyroidism of renal origin; Z68.29 Body mass index [BMI] 29.0-29.9, adult; M79.3 Panniculitis, unspecified
CPT/HCPCS: 99211

== ENCOUNTER → 2020-11-06 | Outpatient (CLI) | payer OTHER, MEDICARE ==
[2020-11-06 11:03] VITALS: BP 172/80; PULSE 58; RESP 18; TEMP 98.1
--- NOTE | 2020-11-06 11:28 | P.PN ---
Subjective Progress Note Date: 11/06/20 Principal diagnosis: fibrocystic breast changes Beatriz patient is a 60-year-old white female seen in consultation for Dr. Bravo who underwent a screening mammogram on 8720. Microcalcifications were noted in the lower inner quadrant of the right breast and additional views were recommended. [place] [address] this revealed the indeterminate calcifications in the lower inner quadrant of the right breast and stereotactic core biopsy was recommended. Nothing of concern was identified in the left breast. A stero core biopsy was preformed on 05-01-20. This was fibrocystic with calcifications. She had a repeat right breast mammogram on 10-30-20 which was benign BIRAD 2. Is not complaining of any lumps masses or nodules in either breast. 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 Caffeine: 1 cup of coffee/day Nicotine: Negative Theophylline: occasional Family history: Negative Hormonal history: Menarche: 11 , breast fed:no inverted nipples, age at : 31 menopause: 52 BCP: none hormones: none Surgical history: Norma-en-Y bariatric surgery, 2014 lost 120 pounds Venous ablation bilateral lower extremities Cholecystectomy Left knee/torn meniscus Tonsillectomy panniculectomy on 09-29-20 Medical history: Parkinson's disease Essential tremors Diet-controlled diabetes Hypertension Social History: smoke: none alcohol: occasional drugs: occasional - Constitutional Constitutional: Denies chills, Denies fever - EENT Eyes: denies blurred vision, denies pain Ears: deny: decreased hearing, tinnitus Ears, nose, mouth and throat: Reports headache - Breasts Breasts: bilateral: as per HPI - Cardiovascular Cardiovascular: Reports high blood pressure - Respiratory Respiratory: Denies cough - Gastrointestinal Gastrointestinal: Denies abdominal pain, Denies diarrhea, Denies nausea, Denies vomiting - Genitourinary (Female) Genitourinary: Reports kidney stones - Menstruation Menstruation: Reports postmenopausal - Musculoskeletal Comment: bursitis in right knee Musculoskeletal: Reports as per HPI - Integumentary Comment: Intermittent rash/itching in her lower abdomen, and occasionally between the breast Integumentary: Reports pruritus, Reports rash - Neurological Comment: Diabetic neuropathy Neurological: Reports as per HPI, Reports numbness, Denies weakness - Psychiatric Psychiatric: Denies anxiety, Denies depression - Endocrine Comment: diet controlled diabetes - Hematologic/Lymphatic Comment: low dose aspirin - Allergic/Immunologic Allergic/Immunologic: Reports as per HPI, Reports seasonal allergies Objective - Vital Signs Vital signs: Vital Signs Temp 98.1 F 11/06/20 11:01 Pulse 58 L 11/06/20 11:01 Resp 18 11/06/20 11:01 BP 172/80 11/06/20 11:01 Pulse Ox 99 11/06/20 11:01 Intake & Output 11/05/20 11/06/20 11/06/20 18:59 06:59 18:59 Weight 81.647 kg - Exam BMI 29.1 - Constitutional General appearance: Present: average body habitus - EENT Eyes: Present: EOMI ENT: Present: hearing grossly normal - Neck Neck: Present: normal ROM - Respiratory Respiratory: bilateral: CTA - Cardiovascular Rhythm: regular Heart sounds: normal: S2 - Integumentary Integumentary: Present: normal turgor - Musculoskeletal Musculoskeletal: Present: gait normal - Psychiatric Psychiatric: Present: A&O x's 3, appropriate affect, intact judgment & insight - Additional findings Additional findings: Breast exam: BRA: XL sports inspection: 3 ptosis bilaterally Right breast: Chronically inverted nipple, fibrocystic changes and multiple positional exam, no dominant masses or nodules of concern Right axilla: No adenopathy of concern Left breast: Chronically inverted nipple, multiple positional exam fibrocystic changes no dominant masses or nodules of concern Left axilla: No adenopathy of concern Assessment and Plan Assessment: Impression: 1. Patient status post stereotactic core biopsy right breast 75218 repeat mammogram of the right breast on stable benign BIRADS 2 2. Fibrocystic breast changes 3. Bilateral chronically inverted nipples 4. Patient status post panniculectomy approximately 5 weeks ago Plan: 1. Bilateral mammogram April 2021; physician exam at that time 2. Patient to call sooner if any questions or concerns Diagnosis: Fibrocystic breast disease, status post stereotactic core biopsy Data reviewed: Review of recent right breast mammogram on ordering of bilateral mammogram Patient will follow-up in April with bilateral mammogram
== END ==
LOC: WWCWWP 10:36
PROVIDERS: ATTEND Surgery
DX: N60.11 Diffuse cystic mastopathy of right breast (principal); N60.12 Diffuse cystic mastopathy of left breast; I10 Essential (primary) hypertension; E11.40 Type 2 diabetes mellitus with diabetic neuropathy, unspecified; N64.59 Other signs and symptoms in breast; Z53.9 Procedure and treatment not carried out, unspecified reason; Z98.890 Other specified postprocedural states

== ENCOUNTER → 2020-11-12 | Outpatient (CLI) | payer OTHER, MEDICARE ==
[2020-11-12 16:32] VITALS: BP 153/77; PULSE 58; RESP 16; TEMP 98; BMI 29.7
--- NOTE | 2020-11-12 16:38 | P.PN ---
Subjective Progress Note Date: 11/12/20 She is down 5 pounds. Mild swelling. Plan for adjust binder. 1 month fu. Plan for 170+ pound. May be active but wear binder. She is over 1 month out. Objective - Vital Signs Vital signs: Vital Signs Temp 98 F 11/12/20 16:30 Pulse 58 L 11/12/20 16:30 Resp 16 11/12/20 16:30 BP 153/77 11/12/20 16:30 Pulse Ox Intake & Output 11/11/20 11/12/20 11/12/20 18:59 06:59 18:59 Weight 83.461 kg
== END ==
LOC: BARWHC3 14:55
PROVIDERS: ATTEND Surgery Plastic and Reconstructive Surgery
DX: E66.01 Morbid (severe) obesity due to excess calories (principal); Z68.29 Body mass index [BMI] 29.0-29.9, adult; E11.9 Type 2 diabetes mellitus without complications; I10 Essential (primary) hypertension; M19.90 Unspecified osteoarthritis, unspecified site; E07.9 Disorder of thyroid, unspecified; Z98.84 Bariatric surgery status; F32.9 Major depressive disorder, single episode, unspecified
CPT/HCPCS: 99211

== ENCOUNTER → 2021-04-08 | Outpatient (CLI) | payer OTHER, MEDICARE ==
--- NOTE | 2021-04-10 11:58 | MM ---
Reason for exam: screening (asymptomatic). Last mammogram was performed 5 months ago. History: Patient is postmenopausal. Breast lifts of both breasts, February 2021. Benign MG stereo VAD BX RT of the right breast, May 01, 2020. Physical Findings: A clinical breast exam by your physician is recommended on an annual basis and results should be correlated with mammographic findings. MG 3D Screening Mammo W/Cad Bilateral CC and MLO view(s) were taken. Prior study comparison: October 30, 2020, right breast MG 3d diag mammo w/cad RT. March 24, 2020, bilateral MG 3d screening mammo w/cad. February 23, 2019, bilateral MG 3d screening mammo w/cad. The breast tissue is heterogeneously dense. This may lower the sensitivity of mammography. No significant changes when compared with prior studies. ASSESSMENT: Benign, BI-RAD 2 RECOMMENDATION: Routine screening mammogram of both breasts in 1 year.
== END | disposition home or self-care (01) ==
LOC: RADMAMWWP 09:00
PROVIDERS: ATTEND Surgery
DX: Z12.31 Encounter for screening mammogram for malignant neoplasm of breast (principal); Z78.0 Asymptomatic menopausal state
CPT/HCPCS: 77063; 77067

== ENCOUNTER → 2021-06-18 | Outpatient (CLI) | payer OTHER, MEDICARE ==
[2021-06-18 11:04] VITALS: BP 145/91; PULSE 52; RESP 18; TEMP 98.1
--- NOTE | 2021-06-18 11:17 | P.PN ---
Subjective Progress Note Date: 06/18/21 Principal diagnosis: Fibrocystic breast changes fibrocystic breast changes Beatriz patient is a 60-year-old white female seen who underwent a screening mammogram on 8720. Microcalcifications were noted in the lower inner quadrant of the right breast and additional views were recommended. [place] [address] this revealed the indeterminate calcifications in the lower inner quadrant of the right breast and stereotactic core biopsy was recommended. Nothing of concern was identified in the left breast. A stero core biopsy was preformed on 05-01-20. This was fibrocystic with calcifications. She had a repeat right breast mammogram on 10-30-20 which was benign BIRAD 2. Is not complaining of any lumps masses or nodules in either breast. 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 The surgery was performed in February 2021. She underwent a bilateral mammogram on 06-18-21 which was BENIGN BIRAD 2. Caffeine: 1 cup of coffee/day Nicotine: Negative Theophylline: occasional Family history: Negative Hormonal history: Menarche: 11 , breast fed:no inverted nipples, age at : 31 menopause: 52 BCP: none hormones: none Surgical history: Norma-en-Y bariatric surgery, 2015 lost 120 pounds Venous ablation bilateral lower extremities Cholecystectomy Left knee/torn meniscus Tonsillectomy panniculectomy on 09-29-20 Bilateral reduction mammoplasty Medical history: Parkinson's disease Essential tremors Diet-controlled diabetes Hypertension Social History: smoke: none alcohol: occasional drugs: occasional - Constitutional Constitutional: Denies chills, Denies fever - EENT Eyes: denies blurred vision, denies pain Ears: deny: decreased hearing, tinnitus Ears, nose, mouth and throat: Reports headache - Breasts Breasts: bilateral: as per HPI - Cardiovascular Cardiovascular: Reports high blood pressure - Respiratory Respiratory: Denies cough - Gastrointestinal Gastrointestinal: Denies abdominal pain, Denies diarrhea, Denies nausea, Denies vomiting - Genitourinary (Female) Genitourinary: Reports kidney stones - Menstruation Menstruation: Reports postmenopausal - Musculoskeletal Comment: bursitis in right knee Musculoskeletal: Reports as per HPI - Integumentary Comment: Intermittent rash/itching in her lower abdomen, and occasionally between the breast Integumentary: Reports pruritus, Reports rash - Neurological Comment: Diabetic neuropathy Neurological: Reports as per HPI, Reports numbness, Denies weakness - Psychiatric Psychiatric: Denies anxiety, Denies depression - Endocrine Comment: diet controlled diabetes - Hematologic/Lymphatic Comment: low dose aspirin - Allergic/Immunologic Allergic/Immunologic: Reports as per HPI, Reports seasonal allergies Objective - Vital Signs Vital signs: Intake & Output 06/17/21 06/18/21 06/18/21 18:59 06:59 18:59 Weight 74.389 kg - Constitutional General appearance: Present: cooperative - EENT Eyes: Present: EOMI ENT: Present: hearing grossly normal - Neck Neck: Present: normal ROM - Respiratory Respiratory: bilateral: CTA - Cardiovascular Rhythm: regular Heart sounds: normal: S1, S2 - Gastrointestinal General gastrointestinal: Present: soft - Integumentary Integumentary: Present: normal turgor - Musculoskeletal Musculoskeletal: Present: gait normal - Psychiatric Psychiatric: Present: A&O x's 3, appropriate affect, intact judgment & insight - Additional findings Additional findings: Breast Exam: Sports Bra: large inspection: Well-healed scars bilateral from bilateral reduction mammoplasty Palpation: Right breast: Multi-positional exam fibrocystic changes no dominant masses or nodules of concern, postop changes noted Right axilla: No adenopathy of concern Left breast: Postop changes, no dominant masses or nodules of concern Left axilla: No adenopathy of concern In the right breast at the inferior T portion of the incision there is a small stitch close to the surface. This was removed. Assessment and Plan Assessment: Impression: 1. Fibrocystic breast changes 2. Recent bilateral reduction mammoplasty chronically inverted nipples are no longer inverted 3. No dominant masses or nodules of concern 4. Recent bilateral mammogram benign BIRADS 2 5. suture extruding at the surface on the inferior aspect of the mammoplasty incision/removed Plan: 1. Repeat bilateral mammogram in 1 year with physician exam at that time 2. Patient to follow up sooner if any questions or concerns 3. Call plastic surgeon if any concerns related to the incisions CC: Dr. Bravo
== END ==
LOC: WWCWWP 10:35
PROVIDERS: ATTEND Surgery
DX: N60.11 Diffuse cystic mastopathy of right breast (principal); E11.9 Type 2 diabetes mellitus without complications; I10 Essential (primary) hypertension; Z88.8 Allergy status to other drugs, medicaments and biological substances; Z88.1 Allergy status to other antibiotic agents; Z91.041 Radiographic dye allergy status

== ENCOUNTER → 2022-04-13 | Outpatient (CLI) | payer MEDICARE ==
--- NOTE | 2022-04-14 13:46 | MM ---
Reason for Exam: Screening (asymptomatic). Last screening mammogram was performed 12 month(s) ago. Patient History: Menarche at age 11. First Full-Term at age 31. Postmenopausal. 05/01/2020, Benign Core Biopsy on the right side. Risk Values: Mar 5 year model risk: 2.0%. NCI Lifetime model risk: 10.7%. Prior Study Comparison: 03/28/2020 Right Diagnostic Mammogram, [facility]. 10/30/2020 Right Diagnostic Mammogram, [facility]. 04/08/2021 Bilateral Screening Mammogram, [facility]. Tissue Density: The breast tissue is heterogeneously dense. This may lower the sensitivity of mammography. Findings: Analyzed By CAD. No significant changes when compared with prior studies. Skin and vascular calcifications in the left breast. No discrete abnormality. Overall Assessment: Benign, BI-RAD 2 Management: Screening Mammogram of both breasts in 1 year. A clinical breast exam by your physician is recommended on an annual basis and results should be correlated with mammographic findings. Electronically signed and approved by: Jasper Marrero M.D. Radiologis
== END | disposition home or self-care (01) ==
LOC: RADMAMWWP 08:55
PROVIDERS: ATTEND Surgery
DX: Z12.31 Encounter for screening mammogram for malignant neoplasm of breast (principal); Z78.0 Asymptomatic menopausal state; Z98.890 Other specified postprocedural states
CPT/HCPCS: 77063; 77067

== ENCOUNTER → 2022-04-22 | Outpatient (CLI) | payer MEDICARE ==
[2022-04-22 09:31] VITALS: BP 167/81; PULSE 59; RESP 17; TEMP 97.3
--- NOTE | 2022-04-22 10:04 | P.PN ---
Subjective Progress Note Date: 04/22/22 Principal diagnosis: fibrocystic breast changes fibrocystic breast changes Beatriz is a 61-year-old white female seen who underwent a screening mammogram on 8720. Microcalcifications were noted in the lower inner quadrant of the right breast and additional views were recommended. [place] [address] this revealed the indeterminate calcifications in the lower inner quadrant of the right breast and stereotactic core biopsy was recommended. Nothing of concern was identified in the left breast. A stero core biopsy was preformed on 05-01-20. This was fibrocystic with calcifications. She had a repeat right breast mammogram on 10-30-20 which was benign BIRAD 2. Is not complaining of any lumps masses or nodules in either breast. 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 The surgery was performed in February 2021. She underwent a bilateral mammogram on 04-13-22 which was BENIGN BIRAD 2. Caffeine: 1 cup of coffee/day Nicotine: Negative Theophylline: occasional Family history: Negative Hormonal history: Menarche: 11 , breast fed:no inverted nipples, age at : 31 menopause: 52 BCP: none hormones: none Surgical history: Norma-en-Y bariatric surgery, 2015 lost 120 pounds Venous ablation bilateral lower extremities Cholecystectomy Left knee/torn meniscus Tonsillectomy panniculectomy on 09-29-20 Bilateral reduction mammoplasty Medical history: Parkinson's disease Essential tremors Diet-controlled diabetes Hypertension Social History: smoke: none alcohol: occasional drugs: occasional - Constitutional Constitutional: Denies chills, Denies fever - EENT Eyes: denies blurred vision, denies pain Ears: deny: decreased hearing, tinnitus Ears, nose, mouth and throat: Reports headache - Breasts Breasts: bilateral: as per HPI - Cardiovascular Cardiovascular: Reports high blood pressure - Respiratory Respiratory: Denies cough - Gastrointestinal Gastrointestinal: Denies abdominal pain, Denies diarrhea, Denies nausea, Denies vomiting - Genitourinary (Female) Genitourinary: Reports kidney stones - Menstruation Menstruation: Reports postmenopausal - Musculoskeletal Comment: bursitis in right knee Musculoskeletal: Reports as per HPI - Integumentary Comment: Intermittent rash/itching in her lower abdomen, and occasionally between the breast Integumentary: Reports pruritus, Reports rash - Neurological Comment: Diabetic neuropathy Neurological: Reports as per HPI, Reports numbness, Denies weakness - Psychiatric Psychiatric: Denies anxiety, Denies depression - Endocrine Comment: diet controlled diabetes - Hematologic/Lymphatic Comment: low dose aspirin - Allergic/Immunologic Allergic/Immunologic: Reports as per HPI, Reports seasonal allergies Objective - Vital Signs Vital signs: Vital Signs Temp 97.3 F L 04/22/22 09:28 Pulse 59 L 04/22/22 09:28 Resp 17 04/22/22 09:28 BP 167/81 04/22/22 09:28 Pulse Ox 100 04/22/22 09:28 FiO2 Intake & Output 04/21/22 04/22/22 04/22/22 18:59 06:59 18:59 Weight 74.843 kg - Constitutional General appearance: Present: cooperative - EENT Eyes: Present: EOMI ENT: Present: hearing grossly normal - Neck Neck: Present: normal ROM - Respiratory Respiratory: bilateral: CTA - Cardiovascular Rhythm: regular Heart sounds: normal: S1, S2 - Gastrointestinal General gastrointestinal: Present: soft - Integumentary Integumentary: Present: normal turgor - Musculoskeletal Musculoskeletal: Present: gait normal - Psychiatric Psychiatric: Present: A&O x's 3, appropriate affect, intact judgment & insight - Additional findings Additional findings: Breast Exam: BRA: large inspection: A lateral reduction mammoplasty incisions, grade 1/2 ptosis bilaterally Palpation: Right breast: Multi-positional exam fibrocystic changes no dominant masses or nodules of concern Right axilla: No adenopathy of concern Left breast: Multi-positional exam fibrocystic changes no dominant masses or nodules of concern Left axilla: No adenopathy of concern Assessment and Plan Assessment: Impression: Parkinson's disease Essential tremors Diet-controlled diabetes Hypertension Fibrocystic breast changes Bilateral mammogram 9622 benign BIRADS 2 Plan: Repeat bilateral mammogram in 1 year with physician exam at that time Patient to follow up sooner any questions or concerns Cc: Dr. Bravo
== END ==
LOC: WWCWWP 09:23
PROVIDERS: ATTEND Surgery
DX: N60.12 Diffuse cystic mastopathy of left breast (principal); N60.11 Diffuse cystic mastopathy of right breast; G20 Parkinson's disease; G25.0 Essential tremor; E11.9 Type 2 diabetes mellitus without complications; I10 Essential (primary) hypertension; Z91.041 Radiographic dye allergy status; Z88.8 Allergy status to other drugs, medicaments and biological substances

== ENCOUNTER → 2023-04-14 | Outpatient (CLI) | payer MEDICARE ==
--- NOTE | 2023-04-15 08:54 | MM ---
Reason for Exam: Screening (asymptomatic). Last screening mammogram was performed 12 month(s) ago. Patient History: Menarche at age 11. First Full-Term at age 31. Postmenopausal. 05/01/2020, Benign Core Biopsy on the right side. Risk Values: Mar 5 year model risk: 2.1%. NCI Lifetime model risk: 10.4%. Prior Study Comparison: 10/30/2020 Right Diagnostic Mammogram, [facility]. 04/08/2021 Bilateral Screening Mammogram, [facility]. 04/13/2022 Bilateral MG 3D screening mammo w/cad, [facility]. Tissue Density: There are scattered fibroglandular densities. Findings: Analyzed By CAD. Right breast biopsy clip. There is no suspicious group of microcalcifications or new suspicious mass. Benign-appearing calcifications bilaterally. Overall Assessment: Benign, BI-RAD 2 Management: Screening Mammogram of both breasts in [address] [facility] will attempt to contact patient to return for supplemental views and ultrasound if indicated. Patient should continue monthly self-breast exams. A clinical breast exam by your physician is recommended on an annual basis. This exam should not preclude additional follow-up of suspicious palpable abnormalities. Note on Mar scores and lifetime risk: 1. A Mar score greater than 3% is considered moderate risk. If this is the case, consider specialist referral to assess eligibility for a risk reducing agent. 2. If overall lifetime risk for the development of breast cancer is 20% or higher, the patient may qualify for future screening with alternating mammogram and breast MRI. Electronically signed and approved by: Torsten Payan DO
== END | disposition home or self-care (01) ==
LOC: RADMAMWWP 09:24
PROVIDERS: ATTEND Surgery
DX: Z12.31 Encounter for screening mammogram for malignant neoplasm of breast (principal); Z78.0 Asymptomatic menopausal state
CPT/HCPCS: 77063; 77067

== ENCOUNTER → 2023-04-21 | Outpatient (CLI) | payer MEDICARE ==
--- NOTE | 2023-04-21 09:38 | P.PN ---
Subjective Progress Note Date: 04/21/23 Principal diagnosis: fibrocystic breast disease fibrocystic breast changes Beatriz is a 62-year-old white female status post right breast stereotactic core biopsy in 2019 which was benign. Since then she has had a bilateral breast reduction. She is not complaining of any new lumps masses or nodules of concern in either breast. She had a bilateral mammogram on 9722 which was benign BIRADS 2 and has been personally reviewed. Caffeine: 1 cup of coffee/day Nicotine: Negative Theophylline: occasional Family history: Negative Hormonal history: Menarche: 11 , breast fed:no inverted nipples, age at : 31 menopause: 52 BCP: none hormones: none Surgical history: Norma-en-Y bariatric surgery, 2015 lost 120 pounds Venous ablation bilateral lower extremities Cholecystectomy Left knee/torn meniscus Tonsillectomy panniculectomy on 09-29-20 Bilateral reduction mammoplasty Medical history: Parkinson's disease Essential tremors Diet-controlled diabetes Hypertension Social History: smoke: none alcohol: occasional drugs: occasional - Constitutional Constitutional: Denies chills, Denies fever - EENT Eyes: denies blurred vision, denies pain Ears: deny: decreased hearing, tinnitus Ears, nose, mouth and throat: Reports headache - Breasts Breasts: bilateral: as per HPI - Cardiovascular Cardiovascular: Reports high blood pressure - Respiratory Respiratory: Denies cough - Gastrointestinal Gastrointestinal: Denies abdominal pain, Denies diarrhea, Denies nausea, Denies vomiting - Genitourinary (Female) Genitourinary: Reports kidney stones - Menstruation Menstruation: Reports postmenopausal - Musculoskeletal Comment: bursitis in right knee Musculoskeletal: Reports as per HPI - Integumentary Comment: Intermittent rash/itching in her lower abdomen, and occasionally between the breast Integumentary: Reports pruritus, Reports rash - Neurological Comment: Diabetic neuropathy Neurological: Reports as per HPI, Reports numbness, Denies weakness - Psychiatric Psychiatric: Denies anxiety, Denies depression - Endocrine Comment: diet controlled diabetes - Hematologic/Lymphatic Comment: low dose aspirin - Allergic/Immunologic Allergic/Immunologic: Reports as per HPI, Reports seasonal allergies Objective - Constitutional General appearance: Present: cooperative - EENT Eyes: Present: EOMI ENT: Present: hearing grossly normal - Neck Neck: Present: normal ROM - Respiratory Respiratory: bilateral: CTA - Cardiovascular Rhythm: regular Heart sounds: normal: S1, S2 - Integumentary Integumentary: Present: normal turgor - Musculoskeletal Musculoskeletal: Present: gait normal - Psychiatric Psychiatric: Present: A&O x's 3, appropriate affect, intact judgment & insight - Additional findings Additional findings: Breast Exam: BRA: large inspection: Bilateral reduction mammoplasty incisions, grade 1/2 ptosis bilaterally, suture may be working its way out from the T portion of the reduction mammoplasty incision at the inferior aspect she is following with plastic surgery for this Palpation: Right breast: Multi-positional exam fibrocystic changes no dominant masses or nodules of concern Right axilla: No adenopathy of concern Left breast: Multi-positional exam fibrocystic changes no dominant masses or nodules of concern Left axilla: No adenopathy of concern Assessment and Plan Assessment: Impression: Parkinson's disease Essential tremors Diet-controlled diabetes Hypertension Fibrocystic breast changes Bilateral mammogram 04-14-23 benign BIRADS 2 Suture may be working its way out from the reduction mammoplasty site inferiorly on the right she is going to follow with plastic surgery for this Plan: Repeat bilateral mammogram in 1 year with physician exam at that time Patient to follow up sooner any questions or concerns Cc: Dr. Bravo
[2023-04-21 16:00] VITALS: BP 160/70; PULSE 56; RESP 17; TEMP 98.3
== END ==
LOC: WWCWWP 09:23
PROVIDERS: ATTEND Surgery
DX: N60.19 Diffuse cystic mastopathy of unspecified breast (principal); I10 Essential (primary) hypertension; G20 Parkinson's disease; E11.9 Type 2 diabetes mellitus without complications; G25.0 Essential tremor; Z91.041 Radiographic dye allergy status; Z88.8 Allergy status to other drugs, medicaments and biological substances; Z91.09 Other allergy status, other than to drugs and biological substances

== ENCOUNTER → 2023-05-18 | Outpatient (CLI) | payer MEDICARE ==
[2023-05-18 13:25] VITALS: BP 154/85; PULSE 53; TEMP 97.5; BMI 27.4
--- NOTE | 2023-05-18 13:47 | P.BASOAP ---
Subjective Progress Note Date: 05/18/23 DATE: 05/18/2023 CHIEF COMPLAINT: Status post gastric bypass HISTORY OF PRESENT ILLNESS: The patient is a 62-year-old female status post gastric bypass March 2015. She is 8 years postop. She is status post panniculectomy, 9 pounds, 09/29/20. She is over 2 years out from her panniculectomy. She has stable weight and gained 15 pounds from stress at home. She has difficulty with weight loss. She has iron deficiency. She has horrible constipation from oral iron treatment. She reports fatigue and tiredness for over 3 months. Her ideal body weight is 154 pounds for her height is 5 foot 6 inches. Her highest weight is 310 pounds. Her initial BMI was 50.1. Today she comes in weighing 170 pounds from 168 pounds from 1 year out. She has gained 2 pounds in 1 year. Her body mass index is reduced to 27.4. Lifetime weight loss is 140 pounds. Lifetime percent excess weight loss is 90%. She is 16 pounds overweight. PAST MEDICAL HISTORY: 1. Morbid obesity due to excess calories 2. Body mass index of 50.1, initial 3. Osteoarthritis of the knees. 4. Osteoarthritis of the hips. 5. Osteoarthritis of the lower back. 6. Obstructive sleep apnea. 7. Hypertensive heart disease. 8. Depressive disorder 9. Kidney stones 10. Diabetes mellitus type 2 11. Hypothyroidism 12. Parkinson's disease 13. Panniculitis PAST SURGICAL HISTORY: 1. Gastric bypass 2. Knee arthroscopy 3. Varicose vein surgery 4. Cholecystectomy 5. Tonsillectomy 6. Heart catheterization 7. Panniculectomy HOME MEDICATIONS: Home Medications Medication Instructions Recorded Confirmed amLODIPine [Norvasc] 5 mg PO DAILY 04/21/20 05/18/23 Aspirin 1 tab PO DAILY 04/25/20 05/18/23 Ergocalciferol (Vitamin D2) 1,250 mcg PO DIRECTED 10/08/20 05/18/23 [Vitamin D2 (50,000 Iu)] Primidone [Mysoline] 50 mg PO TID 04/22/22 05/18/23 Ferrous Sulfate [Feosol] 325 mg PO DAILY 05/18/23 05/18/23 amantadine HCL [Amantadine] 100 mg PO BID 05/18/23 05/18/23 hydroCHLOROthiazide 25 mg PO DAILY 05/18/23 05/18/23 Previous Rx's Medication Instructions Recorded Acetaminophen Tab [Tylenol] 1,000 mg PO Q6H PRN #30 tab 10/01/20 ALLERGIES: Allergies Allergy/AdvReac Type Severity Reaction Status Date / Time Iodinated Contrast Media Allergy Anaphylaxis Verified 04/21/23 09:37 [Iodinated Contrast- Oral and IV Dye] metformin Allergy Rash/Hives Verified 04/21/23 09:37 metronidazole Allergy Rash/Hives Verified 04/21/23 09:37 oxybutynin Allergy Wheezing Verified 04/21/23 09:37 SOCIAL HISTORY: No active tobacco use. FAMILY HISTORY: No family history of ulcerative colitis disease or Crohn's disease. Family history of morbid obesity. No lupus in the family. No reports of stomach or esophageal cancer. Family history of diabetes type 2. REVIEW OF ORGAN SYSTEMS: CONSTITUTIONAL: Her highest weight was 310 pounds. Her initial BMI was 50.1. Her ideal body weight is 154 pounds for height 5 foot 6 inches. HEENT: Denies any active troubles with vision or hearing. No troubles with swallowing. ENDOCRINE: Previous diabetes. Has hypothyroidism. CARDIOVASCULAR: No reports of palpitations or heart attacks or chest pain. Has hypertension. RESPIRATORY: Has daytime somnolence. No asthma. GI: Denies any bright red blood per rectum. No diarrhea. MUSCULOSKELETAL: Has lower back pain and joint pain. Has osteoarthritis of the knees. NEURO: No headaches. No seizure disorders. PSYCH: No depression or suicidal ideation. RHEUMATOLOGIC: No lupus. No rheumatoid arthritis. HEMATOLOGIC: Denies any abnormal bleeding or bruising. No personal history of DVTs. SKIN: No skin cancer. Has panniculitis of the abdomen now resolved. PHYSICAL EXAM: VITAL SIGNS: Height 5 foot 6 inches, weight 170 pounds. BMI 27.4 Vital Signs Temp 97.5 F L 05/18/23 13:15 Pulse 53 L 05/18/23 13:15 Resp BP 154/85 05/18/23 13:15 Pulse Ox FiO2 GENERAL: Well-developed in no acute distress. HEENT: No scleral icterus. Extraocular movements grossly intact. Hears conve rsational speech. No nasal drainage. NECK: Supple without lymphadenopathy. CHEST: Nonlabored respirations with equal bilateral excursions. CARDIOVASCULAR: Regular rate and regular rhythm. Distal 2+ pulses. ABDOMEN: No hernia. Mild skin loseness after weight loss. MUSCULOSKELETAL: No clubbing, cyanosis. NEURO: No focal or lateralizing signs. Cranial nerves 2 through 12 grossly within normal limits. PSYCH: Appropriate affect. Alert and oriented to person, place and time. SKIN: Good skin turgor. Well perfused. LABS: Reviewed from 2021, hemoglobin 11.3 and iron 17. ASSESSMENT: 1. Morbid obesity due to excess calories. 2. Body mass index of 50.1 to 27.4 3. Osteoarthritis of the knees. 4. Osteoarthritis of the hips. 5. Osteoarthritis of the lower back. 6. Obstructive sleep apnea. 7. Hypertensive heart disease. 8. Hypothyroidism. 9. Family history of morbid obesity. 10. Family history of diabetes type 2. 11. Status post gastric bypass 12. Panniculitis 13. Secondary hyperparathyroidism 14. Hair loss 15. Vitamin A deficiency 16. Zinc deficiency 17. Hypertensive heart disease 18. Status post panniculectomy 19. Iron deficiency anemia PLAN: 1. Recommend bariatric labs. 2. Recommend on iron infusion Objective - Vital Signs Vital signs: Vital Signs Temp 97.5 F L 05/18/23 13:15 Pulse 53 L 05/18/23 13:15 Resp BP 154/85 05/18/23 13:15 Pulse Ox FiO2 Intake & Output 05/17/23 05/18/23 05/18/23 18:59 06:59 18:59 Weight 77.111 kg - Labs CBC & Chem 7: 05/18/23 14:19 05/18/23 14:19 Assessment/Plan Plan: Date: 05/18/23 Initial Weight: 138.21 kg Initial BMI: 49.1 Current Weight: 77.111 kg Current BMI: 27.4 Type of Surgery: Total Volume in Band: Previous Volume: Volume Removed: Volume Added: Band Size:
[2023-05-18 15:44] LABS: INR 0.9 (<1.2); Partial Thromboplastin Time 22.9 sec (22.0-30.0); Prothrombin Time 10.1 sec (9.0-12.0)
[2023-05-18 19:43] LABS: HCT 40.1 % (37.2-46.3); HGB 12.5 d/dL (12.0-15.0); MCH 25.9 pg (27.0-32.0); MCHC 31.2 d/dL (32.0-37.0); MCV 83.2 FL (80.0-97.0); Mean Platelet Volume 9.5 FL (9.5-12.2); NRBC Per 100 WBC 0 X 10*3/uL (0.00-0.01); Platelet Count 394 X 10*3/uL (140-440); RBC 4.82 X 10*6/uL (4.10-5.20); RDW 15.6 % (11.5-14.5); WBC 7.26 X 10*3/uL (4.50-10.00)
[2023-05-19 01:49] LABS: % Iron Saturation 63.34 (12.00-45.00); ALT 14 U/L (8-44); AST 24 U/L (13-35); Albumin 4.4 d/dL (3.8-4.9); Albumin/Globulin Ratio 1.57 Ratio (1.60-3.17); Alkaline Phosphatase 83 U/L (41-126); BUN/Creat Ratio 16.45 Ratio (12.00-20.00); Blood Urea Nitrogen 18.1 mg/dL (9.0-27.0); Carbon Dioxide 28.5 mmol/L (21.6-31.8); Chloride 96 mmol/L (96-109); Chol/HDL Ratio 2.95 Ratio; Ferritin 33.3 ng/mL (10.0-291.0); Globulin 2.8 d/dL (1.6-3.3); Glucose 96 mg/dL (70-110); Iron 273 UG/DL (50-170); LDL Cholesterol,Calculated 114.5 mg/dL (0.0-131.0); Magnesium 2.1 mg/dL (1.5-2.4); Potassium 3.7 mmol/L (3.5-5.5); Sodium 138 mmol/L (135-145); Total Bilirubin 0.3 mg/dL (0.3-1.2); Total Iron Binding Capacity 431 UG/DL (228-460); Total Protein 7.2 d/dL (6.2-8.2); VLDL Calculation 17.72 mg/dL (5.00-40.00)
[2023-05-19 12:17] LABS: Zinc, Serum 71 ug/dL (60-130)
[2023-05-20 06:42] LABS: Vitamin A 64 ug/dL (38-106)
[2023-05-20 10:45] LABS: Vit B1(Thiamine) 66 ug/L (38-122)
[2023-05-22 07:39] LABS: Selenium 128 mcg/L (63-160)
== END ==
LOC: BARWHC3 12:57
PROVIDERS: ATTEND Surgery Plastic and Reconstructive Surgery
DX: E66.01 Morbid (severe) obesity due to excess calories (principal); E89.1 Postprocedural hypoinsulinemia; D50.8 Other iron deficiency anemias; D50.9 Iron deficiency anemia, unspecified; K91.2 Postsurgical malabsorption, not elsewhere classified; E44.0 Moderate protein-calorie malnutrition; E44.1 Mild protein-calorie malnutrition; E45 Retarded development following protein-calorie malnutrition; E55.9 Vitamin D deficiency, unspecified; K74.1 Hepatic sclerosis; N19 Unspecified kidney failure; K50.90 Crohn's disease, unspecified, without complications; E46 Unspecified protein-calorie malnutrition; T56.894A Toxic effect of other metals, undetermined, initial encounter; Z91.041 Radiographic dye allergy status; Z88.2 Allergy status to sulfonamides; Z88.1 Allergy status to other antibiotic agents; Z88.3 Allergy status to other anti-infective agents; Z79.82 Long term (current) use of aspirin
CPT/HCPCS: 36415; 80053; 80061; 82306; 82525; 82607; 82728; 82746; 83036; 83540; 83550; 83735; 83970; 84100; 84134; 84255; 84425; 84443; 84590; 84630; 85027; 85610; 85730; 99211

== ENCOUNTER → 2024-04-16 | Outpatient (CLI) | payer MEDICARE ==
--- NOTE | 2024-04-17 11:41 | MM ---
Reason for Exam: Screening (asymptomatic). Last screening mammogram was performed 12 month(s) ago. Patient History: Menarche at age 11. First Full-Term at age 31. Postmenopausal. 05/01/2020, Benign Core Biopsy on the right side. Risk Values: Mar 5 year model risk: 2.1%. NCI Lifetime model risk: 10.1%. Prior Study Comparison: 04/08/2021 Bilateral Screening Mammogram, [facility]. 04/13/2022 Bilateral MG 3D screening mammo w/cad, [facility]. 04/14/2023 Bilateral MG 3D screening mammo w/cad, [facility]. Tissue Density: There are scattered areas of fibroglandular density. Findings: Analyzed By CAD. There is no suspicious group of microcalcifications or new suspicious mass in either breast. Overall Assessment: Benign, BI-RAD 2 Management: Screening Mammogram of both breasts in 1 year. . Patient should continue monthly self-breast exams. A clinical breast exam by your physician is recommended on an annual basis. This exam should not preclude additional follow-up of suspicious palpable abnormalities. Note on Mar scores and lifetime risk: 1. A Mar score greater than 3% is considered moderate risk. If this is the case, consider specialist referral to assess eligibility for a risk reducing agent. 2. If overall lifetime risk for the development of breast cancer is 20% or higher, the patient may qualify for future screening with alternating mammogram and breast MRI. Electronically signed and approved by: Jasper Marrero M.D. Radiologis
== END | disposition home or self-care (01) ==
LOC: RADMAMWWP 10:54
PROVIDERS: ATTEND Surgery
DX: Z12.31 Encounter for screening mammogram for malignant neoplasm of breast
CPT/HCPCS: 77063; 77067

== ENCOUNTER → 2024-04-19 | Outpatient (CLI) | payer MEDICARE ==
[2024-04-19 10:56] VITALS: BP 132/85; PULSE 58; RESP 17; TEMP 98.2
--- NOTE | 2024-04-19 11:13 | P.PN ---
Subjective Progress Note Date: 04/19/24 Principal diagnosis: FCD Principal diagnosis: fibrocystic breast changes Beatriz is a 63-year-old white female seen who underwent a screening mammogram on 87. Microcalcifications were noted in the lower inner quadrant of the right breast and additional views were recommended. [place] [address] this revealed the indeterminate calcifications in the lower inner quadrant of the right breast and stereotactic core biopsy was recommended. Nothing of concern was identified in the left breast. A stero core biopsy was preformed on 05-01-20. This was fibrocystic with calcifications. She had a repeat right breast mammogram on 10-30-20 which was benign BIRAD 2. Most recent bilateral mammogram on 04-16-24 BIRAD 2 personally reviewed and interpreted Is not complaining of any lumps masses or nodules in either breast. 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 The surgery was performed in February 2021. She has had a 35 pound weight loss. Caffeine: 1 cup of coffee/day Nicotine: Negative Theophylline: occasional Family history: Negative Hormonal history: Menarche: 11 , breast fed:no inverted nipples, age at : 31 menopause: 52 BCP: none hormones: none Surgical history: Norma-en-Y bariatric surgery, 2015 lost 120 pounds Venous ablation bilateral lower extremities Cholecystectomy Left knee/torn meniscus Tonsillectomy panniculectomy on 09-29-20 Bilateral reduction mammoplasty Medical history: Parkinson's disease Essential tremors Diet-controlled diabetes Hypertension Social History: smoke: none alcohol: occasional drugs: occasional - Constitutional Constitutional: Denies chills, Denies fever - EENT Eyes: denies blurred vision, denies pain Ears: deny: decreased hearing, tinnitus Ears, nose, mouth and throat: Reports headache - Breasts Breasts: bilateral: as per HPI - Cardiovascular Cardiovascular: Reports high blood pressure - Respiratory Respiratory: Denies cough - Gastrointestinal Gastrointestinal: Denies abdominal pain, Denies diarrhea, Denies nausea, Denies vomiting - Genitourinary (Female) Genitourinary: Reports kidney stones - Menstruation Menstruation: Reports postmenopausal - Musculoskeletal Comment: bursitis in right knee Musculoskeletal: Reports as per HPI - Integumentary Comment: Intermittent rash/itching in her lower abdomen, and occasionally between the breast Integumentary: Reports pruritus, Reports rash - Neurological Comment: Diabetic neuropathy Neurological: Reports as per HPI, Reports numbness, Denies weakness - Psychiatric Psychiatric: Denies anxiety, Denies depression - Endocrine Comment: diet controlled diabetes - Hematologic/Lymphatic Comment: low dose aspirin - Allergic/Immunologic Allergic/Immunologic: Reports as per HPI, Reports seasonal allergies Objective - Vital Signs Vital signs: Vital Signs Temp 98.2 F 04/19/24 10:53 Pulse 58 L 04/19/24 10:53 Resp 17 04/19/24 10:53 BP 132/85 04/19/24 10:53 Pulse Ox 100 04/19/24 10:53 FiO2 Intake & Output 04/18/24 04/19/24 04/19/24 18:59 06:59 18:59 Weight 61.235 kg - Constitutional General appearance: Present: cooperative - EENT Eyes: Present: EOMI ENT: Present: hearing grossly normal - Neck Neck: Present: normal ROM - Respiratory Respiratory: bilateral: CTA - Cardiovascular Rhythm: regular Heart sounds: normal: S1, S2 - Integumentary Integumentary: Present: normal turgor - Musculoskeletal Musculoskeletal: Present: gait normal - Psychiatric Psychiatric: Present: A&O x's 3, appropriate affect, intact judgment & insight - Additional findings Additional findings: Breast Exam: BRA: large inspection: Bilateral reduction mammoplasty incisions, grade 1/2 ptosis bilaterally Palpation: Right breast: Multi-positional exam fibrocystic changes no dominant masses or nodules of concern Right axilla: No adenopathy of concern Left breast: Multi-positional exam fibrocystic changes no dominant masses or nodules of concern Left axilla: No adenopathy of concern Assessment and Plan Assessment: Impression: Parkinson's disease Essential tremors Diet-controlled diabetes Hypertension Fibrocystic breast changes Bilateral mammogram 04-16-24 benign BIRADS 2 (personally interpreted) Plan: Repeat bilateral mammogram in 1 year with physician exam at that time Patient to follow up sooner any questions or concerns Cc: Dr. Bravo
== END ==
LOC: WWCWWP 10:32
PROVIDERS: ATTEND Surgery
DX: R92.8 Other abnormal and inconclusive findings on diagnostic imaging of breast (principal); N60.11 Diffuse cystic mastopathy of right breast; G25.0 Essential tremor; G20.A1 Parkinson's disease without dyskinesia, without mention of fluctuations; E11.9 Type 2 diabetes mellitus without complications; I10 Essential (primary) hypertension; N64.59 Other signs and symptoms in breast; Z91.041 Radiographic dye allergy status; Z88.8 Allergy status to other drugs, medicaments and biological substances; Z88.1 Allergy status to other antibiotic agents; Z79.899 Other long term (current) drug therapy

== ENCOUNTER 2024-10-29 06:50 | Day surgery (SDC) | payer MEDICARE ==
[2024-10-29] MEDS: LACTATED RINGERS 1,000 ML IV ONE (07:00)
[2024-10-29 07:14] VITALS: TEMP 98
[2024-10-29] MEDS: LACTATED RINGERS 1,000 ML IV SCH (07:23)
[2024-10-29 07:26] LABS: Glucose,Whole Blood 122 mg/dL (70-110)
[2024-10-29] MEDS ORDERED: PROPOFOL 10 MG/ML 20 ML VIAL IV ONE (07:27)
--- NOTE | 2024-10-29 07:30 | P.GSHP ---
History of Present Illness H&P Date: 10/29/24 CHIEF COMPLAINT: Colon screen HISTORY OF PRESENT ILLNESS: The patient is a 64-year-old female who presents for colon screen. Lower endoscopy was offered for further evaluation and management. PAST MEDICAL HISTORY: Please see list. PAST SURGICAL HISTORY: Please see list. MEDICATIONS: Please see list. ALLERGIES: Please see list. SOCIAL HISTORY: No illicit drug use FAMILY HISTORY: No reports of Crohn disease or ulcerative colitis. REVIEW OF ORGAN SYSTEMS: CONSTITUTIONAL: No reports of fevers or chills. PHYSICAL EXAM: VITAL SIGNS: Stable GENERAL: Well-developed pleasant in no acute distress. HEENT: No scleral icterus. Extraocular movements grossly intact. Moist buccal mucosa. NECK: Supple without lymphadenopathy. CHEST: Unlabored respirations. Equal bilateral excursions. CARDIOVASCULAR: Regular rate and rhythm. Distal 2+ pulses. ABDOMEN: Soft, nontender, nondistended. MUSCULOSKELETAL: No clubbing, cyanosis, or edema. ASSESSMENT: 1. Colon screen. PLAN: 1. Recommend proceeding with a lower endoscopy Past Medical History Past Medical History: Diabetes Mellitus, Hyperlipidemia, Hypertension, Osteoarthritis (OA) Additional Past Medical History / Comment(s): PARKINSON'S W/ ESSENTIAL Tremors; hx kidney stones, diet control diabetic. low thyroid resolved. constipation issues. recent toradol injection at urgent care for back pain.10/24/24 History of Any Multi-Drug Resistant Organisms: None Reported Past Surgical History: Bariatric Surgery, Cholecystectomy, Heart Catheterization, Orthopedic Surgery, Tonsillectomy Additional Past Surgical History / Comment(s): 03/25/15 Laparoscopic naldo en y gastric bypass (Dr. Carrillo). knee arthroscopy(not sure what knee), steph leg surgery varicose veins, panniculectomy 09-29-20, BREAST LIFT FEBRUARY 2021 Past Anesthesia/Blood Transfusion Reactions: Previous Problems w/ Anesthesia Additional Past Anesthesia/Blood Transfusion Reaction / Comment(s): "took extra time to come out" x1 Smoking Status: Never smoker - Past Family History Father Additional Family Medical History / Comment(s): parkinsons essential tremors Mother Family Medical History: Coronary Artery Disease (CAD), Diabetes Mellitus, Dialysis, Renal Disease Additional Family Medical History / Comment(s): retinopathy Medications and Allergies Home Medications Medication Instructions Recorded Confirmed Type amLODIPine [Norvasc] 10 mg PO DAILY 04/21/20 10/29/24 History Aspirin 81 mg PO DAILY 04/25/20 10/29/24 History Acetaminophen Tab [Tylenol] 1,000 mg PO Q6H PRN #30 tab 10/01/20 10/29/24 Rx Ergocalciferol (Vitamin D2) 1,250 mcg PO DIRECTED 10/08/20 10/29/24 History [Vitamin D2 (50,000 Iu)] Primidone [Mysoline] 50 mg PO TID 04/22/22 10/29/24 History amantadine HCL [Amantadine] 100 mg PO BID 05/18/23 10/29/24 History hydroCHLOROthiazide 25 mg PO DAILY 05/18/23 10/29/24 History Carbidopa/Levodopa [Sinemet 25-100 1 tab PO TID 09/26/24 10/29/24 History mg] Unk Biotin 1 tab PO DAILY 10/26/24 10/29/24 History Ibuprofen [Motrin] 800 mg PO DIRECTED PRN 10/26/24 10/29/24 History Lactulose [Cephulac] 30 ml PO BID PRN 10/26/24 10/29/24 History Unk B12 1 tab PO DAILY 10/26/24 10/29/24 History Allergies Allergy/AdvReac Type Severity Reaction Status Date / Time Iodinated Contrast Media Allergy Anaphylaxis Verified 10/29/24 07:09 [Iodinated Contrast- Oral and IV Dye] metformin Allergy Rash/Hives Verified 10/29/24 07:09 metronidazole Allergy Rash/Hives Verified 10/29/24 07:09 oxybutynin Allergy Wheezing Verified 10/29/24 07:09 Surgical - Exam Vital Signs Temp Pulse Resp BP Pulse Ox 98 F 57 L 18 141/71 98 10/29/24 07:11 10/29/24 07:11 10/29/24 07:11 10/29/24 07:11 10/29/24 07:11 Results - Labs Abnormal Lab Results - Last 24 Hours (Table) 10/29/24 Range/Units 07:25 POC Glucose (mg/dL) 122 H (70-110) mg/dL
--- NOTE | 2024-10-29 07:53 | P.PCN ---
Date of Procedure: 10/29/24 Description of Procedure: PREOPERATIVE DIAGNOSIS: Colonoscopy screening POSTOPERATIVE DIAGNOSIS: Hyperplastic transverse colon polyp OPERATION: Colonoscopy to the ileocecal valve and appendiceal orifice, cecum SURGEON: Felisha Carrillo MD. ANESTHESIA: MAC. INDICATIONS: The patient is an 64-year-old female who presents for colonoscopy screening. Last colonoscopy 5 years. Benefits and risks were described and informed consent was obtained. DESCRIPTION OF PROCEDURE: The patient had undergone GoLytely prep. The patient had been brought into the operating room and laid in the left lateral decubitus position. After adequate intravenous sedation, the rectum was examined with 2% lidocaine jelly. The prostate was unremarkable. No external hemorrhoids were encountered. The rectal tone was within normal limits. No lesions were palpated in the rectal vault. An Olympus colonoscope was advanced until the cecum, ileocecal valve and appendiceal orifice were clearly viewed. The prep was good. No sigmoid diverticulosis was encountered. Colonic polyps were found and removed. No evidence of focal colitis was found. Retroflexion of the scope demonstrated grade 2 internal hemorrhoids without active bleeding or inflammation. The colon was desufflated. The patient had tolerated the procedure well. Withdrawal time was over 6 minutes. FINDINGS: Aronchick preparation quality scale 2 (1-5) Internal hemorrhoids, grade 1 No external hemorrhoids No arteriovenous malformations. No sigmoid diverticulosis Hyperplastic transverse colon polyp, 3 mm not retrieved No focal colitis. RECOMMENDATIONS: Repeat colonoscopy 5 years2029 Plan - Discharge Summary Discharge Rx Participant: No New Discharge Prescriptions: Continue amLODIPine [Norvasc] 10 mg PO DAILY Aspirin 81 mg PO DAILY Acetaminophen Tab [Tylenol] 1,000 mg PO Q6H PRN #30 tab PRN Reason: Pain Ergocalciferol (Vitamin D2) [Vitamin D2 (50,000 Iu)] 1,250 mcg PO DIRECTED Primidone [Mysoline] 50 mg PO TID amantadine HCL [Amantadine] 100 mg PO BID Unk Biotin 1 tab PO DAILY hydroCHLOROthiazide 25 mg PO DAILY Carbidopa/Levodopa [Sinemet 25-100 mg] 1 tab PO TID Lactulose [Cephulac] 30 ml PO BID PRN PRN Reason: Constipation Unk B12 1 tab PO DAILY Ibuprofen [Motrin] 800 mg PO DIRECTED PRN PRN Reason: Pain Discharge Medication List amLODIPine [Norvasc] 10 mg PO DAILY 04/21/20 [History] Aspirin 81 mg PO DAILY 04/25/20 [History] Acetaminophen Tab [Tylenol] 1,000 mg PO Q6H PRN #30 tab 10/01/20 [Rx] Ergocalciferol (Vitamin D2) [Vitamin D2 (50,000 Iu)] 1,250 mcg PO DIRECTED 10/08/20 [History] Primidone [Mysoline] 50 mg PO TID 04/22/22 [History] amantadine HCL [Amantadine] 100 mg PO BID 05/18/23 [History] hydroCHLOROthiazide 25 mg PO DAILY 05/18/23 [History] Carbidopa/Levodopa [Sinemet 25-100 mg] 1 tab PO TID 09/26/24 [History] Unk Biotin 1 tab PO DAILY 10/26/24 [History] Ibuprofen [Motrin] 800 mg PO DIRECTED PRN 10/26/24 [History] Lactulose [Cephulac] 30 ml PO BID PRN 10/26/24 [History] Unk B12 1 tab PO DAILY 10/26/24 [History] Follow up Appointment(s)/Referral(s): Felisha Carrillo MD [STAFF PHYSICIAN] - As Needed Patient Instructions/Handouts: Colorectal Polyps (GEN) Activity/Diet/Wound Care/Special Instructions: Repeat colonoscopy 5 years, 2029 Discharge Disposition: HOME SELF-CARE
[2024-10-29 08:12] VITALS: RESP 18
[2024-10-29 08:30] VITALS: BP 124/75; PULSE 69
== END 2024-10-29 08:47 | disposition home or self-care (01) ==
LOC: ORWHC2ENDO 06:50
PROVIDERS: ATTEND Surgery Plastic and Reconstructive Surgery
DX: Z12.11 Encounter for screening for malignant neoplasm of colon (principal); K63.5 Polyp of colon; K64.1 Second degree hemorrhoids; E11.9 Type 2 diabetes mellitus without complications; E78.5 Hyperlipidemia, unspecified; G20.A1 Parkinson's disease without dyskinesia, without mention of fluctuations; I10 Essential (primary) hypertension; M19.90 Unspecified osteoarthritis, unspecified site; Z79.82 Long term (current) use of aspirin; Z79.899 Other long term (current) drug therapy; Z87.442 Personal history of urinary calculi; Z88.1 Allergy status to other antibiotic agents; Z90.49 Acquired absence of other specified parts of digestive tract; Z90.89 Acquired absence of other organs; Z91.041 Radiographic dye allergy status; Z98.84 Bariatric surgery status
CPT/HCPCS: J2704; G0121; 45378